=== PATIENT | female | born 1945 | race Caucasian/White ===

== ENCOUNTER → 2016-05-07 | Outpatient (CLI) | payer MEDICARE, MEDICAID ==
[~2016-05-07] MED LIST: ACET50TAOT PO; ADV500INH INH; ALB2.5NEB INH; ALBU17IN INH; ALBU17IN2 INH; AMIT25TA PO; AMIT50TA PO; AMIT50TA4 PO; ASPI1TAB PO; ASPI325T PO; AUGM875T27 PO; BACITAB3 PO; CALC600T57 PO; CALCTAB68 PO; CEFD1CAP8 PO; CIPR500S PO; CIPR500T89 PO; COZAAR PO; CYCL5TA PO; DIOV80TA3 PO; DRIS50002 PO; ENOX40IN3 SC; FLON1SPR; FURO40TA2 PO; GABA300C3 PO; GLIM2TAB PO; GLIP5TAB2 PO; HUMA75IN2 SC; HYDR-3719 PO; INSUH10VL SC; INSUHUMDS SC; ISOS30TA4 PO; LASI20TA PO; LORA10TA2 PO; LOSA50TA20 PO; LOVE1INJ2 SC; MAGN400T5 PO; METF500T PO; METO50TA4 PO; MONT10TA2 PO; NITR4TASL SL; NORC5TAB PO; NOVO70VL SC; NYST100024 TOP; PANT40TA2 PO; PRED20TA PO; RIOMSOL PO; SERT-138 PO; SERT-141 PO; TIZA4CAP3 PO; TOPR50TA PO; VIBR100C PO; VITA10002 PO; ZETI10TA2 PO; ZOCO20TA PO; ZOFR20TA PO; [UNRECOGNIZED DRUG - CODE] IV
--- NOTE | 2016-05-07 13:49 | REP ---
Clinical: Nephrolithiasis. Technique: Two supine views of the abdomen and pelvis. Comparison: 04/18/2016. Findings: Left ureteral stent in stable, satisfactory position. Left intrarenal calculi measuring up to approximately 5 mm suggested. Further evaluation of the urinary tract system is severely limited due to overlying bowel gas, postsurgical changes, scattered presumed phleboliths, and technique. Impression: Left ureteral stent in satisfactory stable position. Nonobstructing left intrarenal calculi up to 5 mm suggested Signed by J Carlos Hernandez MD 05/07/2016 01:42 P
== END ==
LOC: M SMT 13:17
PROVIDERS: ATTEND Urology
DX: N20.0 Calculus of kidney (principal); Z96.0 Presence of urogenital implants

== ENCOUNTER 2017-01-06 11:09 | Day surgery (SDC) | payer MEDICARE, MEDICAID ==
[~2017-01-06] VITALS: Ht 158.8 cm; Wt 109.8 kg
[~2017-01-06 11:09] MED LIST changes: +ACETAMINOPHEN 325 MG TAB PO PRN; -AUGM875T27 PO; +AUGM875T28 PO; +BACITAB PO; -BACITAB3 PO; +BSS with VANC/TOB/EPI for EYE CASES IR ONE; +CIPR-249 PO; -CIPR500T89 PO; +CYCL5TAB PO; +CYCLOPENTOLATE 2% OPHTH SOLN 2ML BTL OS ONE; +FLUT1LOT EX; +FLUTISP; +GABA-282 PO; -GABA300C3 PO; +HEALON DUET (HEALON 10MG/ML 0.55ML & HEALON ENDOCOAT 30MG/ML 0.85ML) As Ordered ONE; +HUMA75VL SC; +LIDOCAINE 1% SDV 5 ML VIAL As Ordered ONE; +LIDOCAINE 3.5 % 1ML OPHTH TOPICAL GEL OU ONE; -METF500T PO; +METF500T13 PO; +MIDAZOLAM INJ 2 MG/2 ML VIAL (J2250) As Ordered ONE; +MIRA3350 PO; +MOXIFLOXACIN IN BSS 0.25MG/0.25ML INTRACAMERAL INJ (OR EYE ONLY)(J2280) As Ordered ONE; +NORC1TAB4 PO; -NORC5TAB PO; -NYST100024 TOP; +NYST1POW9 TOP; +OFLOXACIN 0.3 % (OCUFLOX) OPTH SOL 5ML OS ONE; +PHENYLEPHRINE 2.5% OPHTH SOL 2ML OS ONE; +POTA20TA PO; +POVIDONE-IODINE 5% OPHTH PREP SOL 30ML As Ordered ONE; +PROAAER10 INH; +PROPARACAINE 0.5% OPHTH SOL 15ML OS PRN; +TRIAMCINOLONE PRES FR 40 MG/ML 1ML(TRIESENCE)(OR EYE ONLY)(J3300 PER 1MG) As Ordered ONE; +TROPICAMIDE 1% OPHTH SOLN 2ML OS ONE; -ZETI10TA2 PO; +ZETI10TA30 PO; +ZOLO100T PO; +fentaNYL 100 MCG/2 ML INJECTION (J3010) As Ordered ONE
[2017-01-06] MEDS ORDERED: TRIAMCINOLONE PRES FR 40 MG/ML 1ML(TRIESENCE)(OR EYE ONLY)(J3300 PER 1MG) As Ordered ONE (12:23)
[2017-01-06] MEDS ORDERED: ACETYLCHOLINE OPHTH SOLN 1% 2ML (MIOCHOL-E) As Ordered ONE (12:27)
[2017-01-06] MEDS ORDERED: TRIMETHOBENZAMIDE 300 MG CAP PO PRN (13:15)
[2017-01-06] MEDS ORDERED: AcetaZOLAMIDE 500 MG ER CAP PO ONE (13:15)
[2017-01-06 13:40] VITALS: BP 163/76
== END 2017-01-06 13:55 | disposition home or self-care (01) ==
LOC: M SDC 11:09
PROVIDERS: ATTEND Ophthalmology
DX: H25.9 Unspecified age-related cataract (principal); I50.9 Heart failure, unspecified; G47.30 Sleep apnea, unspecified; E10.9 Type 1 diabetes mellitus without complications; Z79.4 Long term (current) use of insulin; F32.9 Major depressive disorder, single episode, unspecified; Z79.82 Long term (current) use of aspirin; Z79.899 Other long term (current) drug therapy; M79.7 Fibromyalgia; K21.9 Gastro-esophageal reflux disease without esophagitis; Z87.891 Personal history of nicotine dependence
CPT/HCPCS: 66984; 67515; J2250; J2280; J3010; J3300

== ENCOUNTER 2017-01-14 05:55 | Day surgery (SDC) | payer MEDICARE, MEDICAID ==
[~2017-01-14] VITALS: Ht 158.8 cm; Wt 109.8 kg
[~2017-01-14 05:55] MED LIST changes: -ACETAMINOPHEN 325 MG TAB PO PRN; -BSS with VANC/TOB/EPI for EYE CASES IR ONE; -CYCLOPENTOLATE 2% OPHTH SOLN 2ML BTL OS ONE; -HEALON DUET (HEALON 10MG/ML 0.55ML & HEALON ENDOCOAT 30MG/ML 0.85ML) As Ordered ONE; -LIDOCAINE 1% SDV 5 ML VIAL As Ordered ONE; -LIDOCAINE 3.5 % 1ML OPHTH TOPICAL GEL OU ONE; -MIDAZOLAM INJ 2 MG/2 ML VIAL (J2250) As Ordered ONE; -MOXIFLOXACIN IN BSS 0.25MG/0.25ML INTRACAMERAL INJ (OR EYE ONLY)(J2280) As Ordered ONE; -OFLOXACIN 0.3 % (OCUFLOX) OPTH SOL 5ML OS ONE; -PHENYLEPHRINE 2.5% OPHTH SOL 2ML OS ONE; -POVIDONE-IODINE 5% OPHTH PREP SOL 30ML As Ordered ONE; -PROPARACAINE 0.5% OPHTH SOL 15ML OS PRN; -TRIAMCINOLONE PRES FR 40 MG/ML 1ML(TRIESENCE)(OR EYE ONLY)(J3300 PER 1MG) As Ordered ONE; -TROPICAMIDE 1% OPHTH SOLN 2ML OS ONE; -fentaNYL 100 MCG/2 ML INJECTION (J3010) As Ordered ONE
[2017-01-14] MEDS ORDERED: ACETAMINOPHEN 325 MG TAB PO PRN (06:00)
[2017-01-14] MEDS ORDERED: LR 1,000 ML IV ONE (06:15)
[2017-01-14] MEDS ORDERED: POVIDONE-IODINE 5% OPHTH PREP SOL 30ML As Ordered ONE (06:46)
[2017-01-14] MEDS ORDERED: ACETYLCHOLINE OPHTH SOLN 1% 2ML (MIOCHOL-E) As Ordered ONE (06:46)
[2017-01-14] MEDS ORDERED: LIDOCAINE 1% SDV 5 ML VIAL As Ordered ONE (06:46)
[2017-01-14] MEDS ORDERED: HEALON DUET (HEALON 10MG/ML 0.55ML & HEALON ENDOCOAT 30MG/ML 0.85ML) As Ordered ONE (06:47)
[2017-01-14] MEDS ORDERED: CEFUROXIME 1MG/0.1ML INTRACAMERAL INJ As Ordered ONE (06:47)
[2017-01-14] MEDS ORDERED: LIDOCAINE 2% W/EPIN INJ 20ML **PRES FREE As Ordered ONE (06:50)
[2017-01-14] MEDS ORDERED: MOXIFLOXACIN IN BSS 0.25MG/0.25ML INTRACAMERAL INJ (OR EYE ONLY)(J2280) As Ordered ONE (06:52)
[2017-01-14] MEDS ORDERED: TRIAMCINOLONE PRES FR 40 MG/ML 1ML(TRIESENCE)(OR EYE ONLY)(J3300 PER 1MG) As Ordered ONE (06:52)
[2017-01-14] MEDS ORDERED: BSS with VANC/TOB/EPI for EYE CASES IR ONE (07:00)
[2017-01-14] MEDS ORDERED: CYCLOPENTOLATE 2% OPHTH SOLN 2ML BTL OD ONE (07:00)
[2017-01-14] MEDS ORDERED: LIDOCAINE 3.5 % 1ML OPHTH TOPICAL GEL OU ONE (07:00)
[2017-01-14] MEDS ORDERED: LIDOCAINE 1% SDV 5 ML VIAL SC ONE (07:00)
[2017-01-14] MEDS ORDERED: PHENYLEPHRINE 2.5% OPHTH SOL 2ML OD ONE (07:00)
[2017-01-14] MEDS ORDERED: OFLOXACIN 0.3 % (OCUFLOX) OPTH SOL 5ML OD ONE (07:00)
[2017-01-14] MEDS ORDERED: TROPICAMIDE 1% OPHTH SOLN 2ML OD ONE (07:00)
[2017-01-14] MEDS ORDERED: PROPARACAINE 0.5% OPHTH SOL 15ML OD PRN (07:01)
[2017-01-14] MEDS ORDERED: MIDAZOLAM INJ 2 MG/2 ML VIAL (J2250) As Ordered ONE (07:43)
[2017-01-14] MEDS ORDERED: fentaNYL 100 MCG/2 ML INJECTION (J3010) As Ordered ONE (07:43)
[2017-01-14] MEDS ORDERED: AcetaZOLAMIDE 500 MG ER CAP As Ordered ONE (08:17)
[2017-01-14] MEDS ORDERED: KETOROLAC 0.5% OPHTH SOLN OD ONE (08:30)
[2017-01-14] MEDS ORDERED: TRIMETHOBENZAMIDE 300 MG CAP PO PRN (08:30)
[2017-01-14] MEDS ORDERED: AcetaZOLAMIDE 500 MG ER CAP PO ONE (08:30)
[2017-01-14 08:40] VITALS: BP 172/74
== END 2017-01-14 08:59 | disposition home or self-care (01) ==
LOC: M SDC 05:55
PROVIDERS: ATTEND Ophthalmology
DX: H25.9 Unspecified age-related cataract (principal); I50.9 Heart failure, unspecified; I10 Essential (primary) hypertension; E78.5 Hyperlipidemia, unspecified; E11.9 Type 2 diabetes mellitus without complications; Z79.4 Long term (current) use of insulin; G47.30 Sleep apnea, unspecified; K21.9 Gastro-esophageal reflux disease without esophagitis; Z79.899 Other long term (current) drug therapy; Z87.891 Personal history of nicotine dependence; Z88.8 Allergy status to other drugs, medicaments and biological substances
CPT/HCPCS: 66984; J2250; J2280; J3010; J3300; V2632

== ENCOUNTER 2017-06-03 11:39 | Inpatient (IN) | payer MEDICARE, MEDICAID ==
[2017-06-03 12:31] LABS: BASO % 0.3 % (0.0-1.0); EOS # 0.1 10^3/uL (0.0-0.50); EOS % 1.7 % (0.0-3.0); HEMATOCRIT 34.5 % (36.0-47.0); HEMOGLOBIN 10.7 g/dl (12.0-16.0); IMMATURE GRANULOCYTE % 0.4 % (0-0); LYMPH # 1.3 10^3/uL (1.5-4.5); LYMPH % 18.2 % (24.0-44.0); MEAN CORPUSCULAR HEMOGLOBIN 26.6 pg (27.0-33.0); MEAN CORPUSCULAR VOLUME 85.8 fl (80.0-96.0); MONO # 0.5 10^3/uL (0.0-0.8); MONO % 7.4 % (0.0-5.0); PLATELET COUNT, AUTOMATED 247 10^3/uL (150-450); RED BLOOD COUNT 4.02 10^6/uL (4.00-5.40); RED CELL DISTRIBUTION WIDTH 12.1 % (11.5-14.5); WHITE BLOOD COUNT 6.9 10^3/uL (4.0-10.0)
[2017-06-03 13:00] LABS: ANION GAP 2 MEQ/L (8-16); BLOOD UREA NITROGEN 9 MG/DL (7-18); CALCIUM LEVEL 8.7 MG/DL (8.8-10.2); CARBON DIOXIDE LEVEL 44 MEQ/L (21-32); CHLORIDE LEVEL 89 MEQ/L (98-107); CPK CREATINE PHOSPHOKINASE 92 U/L (26-192); CREATININE FOR GFR 0.82 MG/DL (0.55-1.30); GLOMERULAR FILTRATION RATE > 60.0 (>39); GLUCOSE, FASTING 351 MG/DL (70-100); POTASSIUM SERUM 3.2 MEQ/L (3.5-5.1); SODIUM LEVEL 135 MEQ/L (136-145); TROPONIN I 0.05 NG/ML (< 0.10)
[2017-06-03 13:01] LABS: ALBUMIN 3.2 GM/DL (3.2-5.2); ALKALINE PHOSPHATASE 93 U/L (45-117); ALT/SGPT 10 U/L (12-78); AST/SGOT 13 U/L (7-37); BILIRUBIN,DIRECT 0.2 MG/DL (0.0-0.2); BILIRUBIN,TOTAL 0.5 MG/DL (0.2-1.0); CK-MB VALUE MASS 1.9 NG/ML (0.0-3.6); MB/CK RELATIVE INDEX 2.06 (< OR =4); NT-PRO BNP 3133 PG/ML (<125); TOTAL PROTEIN 7.2 GM/DL (6.4-8.2)
[2017-06-03 13:02] LABS: INFLUENZA A AMPLIFICATION NEGATIVE (NEGATIVE); INFLUENZA B AMPLIFICATION NEGATIVE (NEGATIVE)
[2017-06-03] MEDS ORDERED: hydrALAZINE INJ 20 MG/ML VIAL IV (13:09)
[2017-06-03] MEDS: FUROSEMIDE 40 MG/4 ML VIAL (J1940) IV ×2 (14:01→21:50)
[2017-06-03] MEDS: metFORMIN (GLUCOPHAGE) 500 MG TAB PO ×2 (16:48→21:47)
[2017-06-03 17:36] LABS: ABG BASE EXCESS 20.4 (-2.0-2.0); ABG HCO3 48.8 MEQ/L (22.0-26.0); ABG O2 SATURATION 98.5 % (95.0-99.0); ABG PARTIAL PRESSURE O2 110.7 mmHg (75.0-100.0); ABG STANDARD HCO3 44.7 MEQ/L (22.0-26.0); ABG TOTAL CO2 51.1 MEQ/L (23.0-31.0); ABG pH (ARTERIAL) 7.416 UNITS (7.350-7.450)
[2017-06-03 17:37] LABS: ABG PARTIAL PRESSURE CO2 77.6 mmHg (35.0-45.0)
[2017-06-03] MEDS ORDERED: GLUCOSE 4 GM CHEW TABLET PO (17:45)
[2017-06-03] MEDS ORDERED: GLUCAGON FOR INJ 1 MG VIAL (J1610) SC (17:45)
[2017-06-03] MEDS ORDERED: DEXTROSE 50% 50 ML SYRINGE IV (17:45)
[2017-06-03 18:29] LABS: CK-MB VALUE MASS 2.1 NG/ML (0.0-3.6); CPK CREATINE PHOSPHOKINASE 92 U/L (26-192); MB/CK RELATIVE INDEX 2.28 (< OR =4); TROPONIN I 0.05 NG/ML (< 0.10)
[2017-06-03] MEDS: ADVAIR HFA 230/21MCG INHALER INH (20:46)
[2017-06-03] MEDS ORDERED: HumaLOG INSULIN (NovoLOG) PER UNIT SC (21:00)
[2017-06-03 21:05] LABS: BEDSIDE GLUCOSE 290 MG/DL (83-110)
[2017-06-03] MEDS: MONTELUKAST 10 MG TAB PO (21:47)
[2017-06-03] MEDS: EZETIMIBE 10 MG TAB (ZETIA) PO (21:48)
[2017-06-03] MEDS: ANEXSIA, NORCO 7.5MG/325MG TABLET(HYDROCODONE/APAP) PO (21:48)
[2017-06-03] MEDS: PANTOPRAZOLE 40MG TAB (PROTONIX) PO (21:48)
[2017-06-03] MEDS: HEPARIN SOD (PORCINE) 5000 UNITS/ML VIAL SC (21:49)
[2017-06-03] MEDS: FLUTICASONE PROP 0.05% NASAL SPRAY 16 GM (FLONASE) (21:49)
[2017-06-03] MEDS: HumaLOG 75/25 MIX INSULIN PER UNIT SC (21:49)
[2017-06-03] MEDS: NYSTATIN 100,000 UNITS/GM TOPICAL PWD 15 GM TOP (21:50)
[2017-06-03] MEDS: ONDANSETRON 4MG/2ML VIAL (J2405) IV (21:50)
[2017-06-04 02:26] LABS: HEMATOCRIT 34.4 % (36.0-47.0); HEMOGLOBIN 10.5 g/dl (12.0-16.0); MEAN CORPUSCULAR HEMOGLOBIN 26.5 pg (27.0-33.0); MEAN CORPUSCULAR HGB CONC 30.5 g/dl (32.0-36.5); MEAN CORPUSCULAR VOLUME 86.9 fl (80.0-96.0); PLATELET COUNT, AUTOMATED 227 10^3/uL (150-450); RED BLOOD COUNT 3.96 10^6/uL (4.00-5.40); RED CELL DISTRIBUTION WIDTH 12.1 % (11.5-14.5); WHITE BLOOD COUNT 7.2 10^3/uL (4.0-10.0)
[2017-06-04 02:47] LABS: BLOOD UREA NITROGEN 10 MG/DL (7-18); CALCIUM LEVEL 8.6 MG/DL (8.8-10.2); CHLORIDE LEVEL 90 MEQ/L (98-107); GLOMERULAR FILTRATION RATE > 60.0 (>39); GLUCOSE, FASTING 109 MG/DL (70-100); MAGNESIUM LEVEL 1.5 MG/DL (1.8-2.4); POTASSIUM SERUM 2.5 MEQ/L (3.5-5.1); SODIUM LEVEL 141 MEQ/L (136-145)
[2017-06-04 02:54] LABS: CK-MB VALUE MASS 1.9 NG/ML (0.0-3.6); CPK CREATINE PHOSPHOKINASE 108 U/L (26-192); MB/CK RELATIVE INDEX 1.75 (< OR =4); TROPONIN I 0.06 NG/ML (< 0.10)
[2017-06-04 03:03] LABS: CARBON DIOXIDE LEVEL 52 MEQ/L (21-32)
[2017-06-04 03:24] LABS: ESTIMATED AVERAGE GLUCOSE 220 MG/DL (60-110); HEMOGLOBIN A1c 9.3 %
[2017-06-04] MEDS ORDERED: KCL 20MEQ IN 100ML SWI (KRUN) 20 MEQ in APPROPRIATE DILUENT 1 EA IV (03:30)
[2017-06-04] MEDS ORDERED: KCL 10MEQ IN 100ML SWI (KRUN) 10 MEQ in APPROPRIATE DILUENT 1 EA IV (04:00)
[2017-06-04] MEDS: KCL 10MEQ IN 100ML SWI (KRUN) 10 MEQ in APPROPRIATE DILUENT 1 EA IV ×2 (04:19→04:20)
[2017-06-04] MEDS: POTASSIUM CHLORIDE 10 MEQ SR TABLET PO ×3 (04:19→16:58)
[2017-06-04] MEDS: HEPARIN SOD (PORCINE) 5000 UNITS/ML VIAL SC ×3 (06:17→22:35)
[2017-06-04] MEDS: MAG SULF 1GM/100ML (MAG RUN) 1 GM in APPROPRIATE DILUENT 1 EA IV (06:18)
[2017-06-04] MEDS ORDERED: HumaLOG 75/25 MIX INSULIN PER UNIT SC ×2 (07:30→17:30)
[2017-06-04 08:42] LABS: BEDSIDE GLUCOSE 162 MG/DL (83-110)
[2017-06-04] MEDS: ADVAIR HFA 230/21MCG INHALER INH ×2 (08:45→21:23)
[2017-06-04] MEDS: ASPIRIN 81 MG ENTERIC TAB PO (08:48)
[2017-06-04] MEDS: SERTRALINE 100 MG TAB PO (08:48)
[2017-06-04] MEDS: METOPROLOL SUCC (TopROL XL) 50MG **XL** TAB PO (08:49)
[2017-06-04] MEDS: ANEXSIA, NORCO 7.5MG/325MG TABLET(HYDROCODONE/APAP) PO ×2 (08:49→20:25)
[2017-06-04 08:50] LABS: ALBUMIN 3.1 GM/DL (3.2-5.2); ALBUMIN/GLOBULIN RATIO 0.84 (1.00-1.93); ALKALINE PHOSPHATASE 74 U/L (45-117); ALT/SGPT 10 U/L (12-78); AST/SGOT 18 U/L (7-37); BILIRUBIN,TOTAL 0.4 MG/DL (0.2-1.0); BLOOD UREA NITROGEN 10 MG/DL (7-18); CALCIUM LEVEL 8.3 MG/DL (8.8-10.2); CHLORIDE LEVEL 89 MEQ/L (98-107); CREATININE FOR GFR 0.81 MG/DL (0.55-1.30); GLOMERULAR FILTRATION RATE > 60.0 (>39); GLUCOSE, FASTING 157 MG/DL (70-100); POTASSIUM SERUM 3.4 MEQ/L (3.5-5.1); SODIUM LEVEL 141 MEQ/L (136-145); TOTAL PROTEIN 6.8 GM/DL (6.4-8.2)
[2017-06-04] MEDS: ISOSORBIDE MON. (IMDUR) 30 MG XR TAB PO (08:50)
[2017-06-04] MEDS: LOSARTAN 50 MG TAB PO (08:50)
[2017-06-04] MEDS: MAGNESIUM OXIDE 400 MG TAB (MAG-OX) PO (08:50)
[2017-06-04 08:51] LABS: CK-MB VALUE MASS 1.9 NG/ML (0.0-3.6); CPK CREATINE PHOSPHOKINASE 127 U/L (26-192); MAGNESIUM LEVEL 2.1 MG/DL (1.8-2.4); MB/CK RELATIVE INDEX 1.49 (< OR =4); TROPONIN I 0.06 NG/ML (< 0.10)
[2017-06-04] MEDS: PANTOPRAZOLE 40MG TAB (PROTONIX) PO ×2 (08:51→20:26)
[2017-06-04] MEDS: HumaLOG INSULIN (NovoLOG) PER UNIT SC ×3 (08:55→17:13)
[2017-06-04] MEDS: HumaLOG 75/25 MIX INSULIN PER UNIT SC ×2 (08:56→16:59)
[2017-06-04] MEDS ORDERED: POTASSIUM CHLORIDE 10 MEQ SR TABLET PO ×2 (09:00→12:00)
[2017-06-04 09:17] LABS: ANION GAP 8 MEQ/L (8-16); CARBON DIOXIDE LEVEL 44 MEQ/L (21-32)
[2017-06-04 09:55] LABS: ABG BASE EXCESS 16.4 (-2.0-2.0); ABG HCO3 44.7 MEQ/L (22.0-26.0); ABG O2 SATURATION 98.6 % (95.0-99.0); ABG STANDARD HCO3 40.4 MEQ/L (22.0-26.0); ABG TOTAL CO2 47.1 MEQ/L (23.0-31.0); ABG pH (ARTERIAL) 7.384 UNITS (7.350-7.450)
[2017-06-04 09:58] LABS: ABG PARTIAL PRESSURE CO2 76.6 mmHg (35.0-45.0)
[2017-06-04 11:59] LABS: BEDSIDE GLUCOSE 119 MG/DL (83-110)
[2017-06-04] MEDS ORDERED: ALBUTEROL SULFATE 2.5 MG/0.5 ML INH NEB SOLN INH (13:45)
[2017-06-04] MEDS: ACETAMINOPHEN TAB 650MG DOSE (2X325MG) PO (14:52)
[2017-06-04] MEDS: IPRATROPIUM 0.5MG/ALBUTEROL 2.5MG INH SOL UD 3ML (DUONEB)(J7620) NEB ×3 (15:22→23:54)
[2017-06-04 15:30] LABS: BLOOD UREA NITROGEN 13 MG/DL (7-18); CALCIUM LEVEL 8.5 MG/DL (8.8-10.2); CHLORIDE LEVEL 92 MEQ/L (98-107); CREATININE FOR GFR 0.98 MG/DL (0.55-1.30); GLOMERULAR FILTRATION RATE 59.6 (>39); GLUCOSE, FASTING 54 MG/DL (70-100); POTASSIUM SERUM 3.2 MEQ/L (3.5-5.1); SODIUM LEVEL 143 MEQ/L (136-145)
[2017-06-04 15:47] LABS: ANION GAP 28 MEQ/L (8-16); CARBON DIOXIDE LEVEL 23 MEQ/L (21-32)
[2017-06-04 16:28] LABS: BEDSIDE GLUCOSE 77 MG/DL (83-110)
[2017-06-04] MEDS: EZETIMIBE 10 MG TAB (ZETIA) PO (20:26)
[2017-06-04] MEDS: MONTELUKAST 10 MG TAB PO (20:29)
[2017-06-04 20:45] LABS: BEDSIDE GLUCOSE 79 MG/DL (83-110)
[2017-06-04] MEDS: FLUTICASONE PROP 0.05% NASAL SPRAY 16 GM (FLONASE) (22:34)
[2017-06-05] MEDS: IPRATROPIUM 0.5MG/ALBUTEROL 2.5MG INH SOL UD 3ML (DUONEB)(J7620) NEB ×6 (03:20→22:06)
[2017-06-05] MEDS: HEPARIN SOD (PORCINE) 5000 UNITS/ML VIAL SC ×3 (05:06→21:24)
[2017-06-05 05:30] LABS: HEMATOCRIT 33.6 % (36.0-47.0); MEAN CORPUSCULAR HEMOGLOBIN 26.7 pg (27.0-33.0); MEAN CORPUSCULAR HGB CONC 29.8 g/dl (32.0-36.5); MEAN CORPUSCULAR VOLUME 89.8 fl (80.0-96.0); PLATELET COUNT, AUTOMATED 232 10^3/uL (150-450); RED BLOOD COUNT 3.74 10^6/uL (4.00-5.40); RED CELL DISTRIBUTION WIDTH 12.3 % (11.5-14.5); WHITE BLOOD COUNT 5.4 10^3/uL (4.0-10.0)
[2017-06-05 05:50] LABS: BLOOD UREA NITROGEN 14 MG/DL (7-18); CALCIUM LEVEL 8.7 MG/DL (8.8-10.2); CHLORIDE LEVEL 93 MEQ/L (98-107); CREATININE FOR GFR 0.91 MG/DL (0.55-1.30); GLOMERULAR FILTRATION RATE > 60.0 (>39); GLUCOSE, FASTING 129 MG/DL (70-100); POTASSIUM SERUM 3.3 MEQ/L (3.5-5.1); SODIUM LEVEL 142 MEQ/L (136-145)
[2017-06-05 06:01] LABS: ANION GAP 2 MEQ/L (8-16); CARBON DIOXIDE LEVEL 47 MEQ/L (21-32)
[2017-06-05] MEDS ORDERED: HumaLOG 75/25 MIX INSULIN PER UNIT SC (07:30)
[2017-06-05] MEDS: ISOSORBIDE MON. (IMDUR) 30 MG XR TAB PO (08:10)
[2017-06-05] MEDS: ASPIRIN 81 MG ENTERIC TAB PO (08:11)
[2017-06-05] MEDS: LOSARTAN 50 MG TAB PO (08:11)
[2017-06-05] MEDS: METOPROLOL SUCC (TopROL XL) 50MG **XL** TAB PO (08:11)
[2017-06-05] MEDS: PANTOPRAZOLE 40MG TAB (PROTONIX) PO ×2 (08:11→21:02)
[2017-06-05] MEDS: MAGNESIUM OXIDE 400 MG TAB (MAG-OX) PO (08:12)
[2017-06-05] MEDS: SERTRALINE 100 MG TAB PO (08:12)
[2017-06-05] MEDS: CYANOCOBALAMIN 500 MCG TAB PO (08:12)
[2017-06-05] MEDS: POTASSIUM CHLORIDE 10 MEQ SR TABLET PO (08:12)
[2017-06-05] MEDS: NYSTATIN 100,000 UNITS/GM TOPICAL PWD 15 GM TOP (08:13)
[2017-06-05] MEDS: NS 1,000 ML IV (08:15)
[2017-06-05] MEDS: ANEXSIA, NORCO 7.5MG/325MG TABLET(HYDROCODONE/APAP) PO ×2 (08:15→21:03)
[2017-06-05] MEDS: HumaLOG INSULIN (NovoLOG) PER UNIT SC ×3 (08:17→17:30)
[2017-06-05] MEDS: HumaLOG 75/25 MIX INSULIN PER UNIT SC ×2 (08:18→21:14)
[2017-06-05] MEDS: ADVAIR HFA 230/21MCG INHALER INH ×2 (08:32→21:00)
[2017-06-05 11:58] LABS: BEDSIDE GLUCOSE 205 MG/DL (83-110)
[2017-06-05 14:19] LABS: ANION GAP 5 MEQ/L (8-16); BLOOD UREA NITROGEN 15 MG/DL (7-18); CALCIUM LEVEL 8.5 MG/DL (8.8-10.2); CARBON DIOXIDE LEVEL 43 MEQ/L (21-32); CHLORIDE LEVEL 92 MEQ/L (98-107); GLOMERULAR FILTRATION RATE 58.2 (>39); GLUCOSE, FASTING 195 MG/DL (70-100); POTASSIUM SERUM 3.9 MEQ/L (3.5-5.1); SODIUM LEVEL 140 MEQ/L (136-145)
[2017-06-05] MEDS: predniSONE 20 MG TAB PO (14:32)
[2017-06-05 15:05] LABS: ABG BASE EXCESS 13.2 (-2.0-2.0); ABG HCO3 40.8 MEQ/L (22.0-26.0); ABG O2 SATURATION 98.5 % (95.0-99.0); ABG PARTIAL PRESSURE O2 116.6 mmHg (75.0-100.0); ABG STANDARD HCO3 36.9 MEQ/L (22.0-26.0); ABG pH (ARTERIAL) 7.378 UNITS (7.350-7.450)
[2017-06-05 15:06] LABS: ABG PARTIAL PRESSURE CO2 70.9 mmHg (35.0-45.0)
[2017-06-05 17:53] LABS: BEDSIDE GLUCOSE 75 MG/DL (83-110)
[2017-06-05] MEDS: EZETIMIBE 10 MG TAB (ZETIA) PO (21:02)
[2017-06-05] MEDS: MONTELUKAST 10 MG TAB PO (21:02)
[2017-06-05] MEDS: FLUTICASONE PROP 0.05% NASAL SPRAY 16 GM (FLONASE) (21:04)
[2017-06-05 21:05] LABS: BEDSIDE GLUCOSE 319 MG/DL (83-110)
[2017-06-06] MEDS: IPRATROPIUM 0.5MG/ALBUTEROL 2.5MG INH SOL UD 3ML (DUONEB)(J7620) NEB ×6 (04:30→22:22)
[2017-06-06 06:32] LABS: HEMATOCRIT 33.5 % (36.0-47.0); MEAN CORPUSCULAR HEMOGLOBIN 26.2 pg (27.0-33.0); MEAN CORPUSCULAR HGB CONC 29.9 g/dl (32.0-36.5); MEAN CORPUSCULAR VOLUME 87.9 fl (80.0-96.0); PLATELET COUNT, AUTOMATED 271 10^3/uL (150-450); RED BLOOD COUNT 3.81 10^6/uL (4.00-5.40); RED CELL DISTRIBUTION WIDTH 12.3 % (11.5-14.5); WHITE BLOOD COUNT 6.9 10^3/uL (4.0-10.0)
[2017-06-06] MEDS: HEPARIN SOD (PORCINE) 5000 UNITS/ML VIAL SC ×3 (06:47→21:15)
[2017-06-06 06:56] LABS: ANION GAP 2 MEQ/L (8-16); BLOOD UREA NITROGEN 16 MG/DL (7-18); CALCIUM LEVEL 8.4 MG/DL (8.8-10.2); CARBON DIOXIDE LEVEL 43 MEQ/L (21-32); CHLORIDE LEVEL 94 MEQ/L (98-107); CREATININE FOR GFR 0.84 MG/DL (0.55-1.30); GLOMERULAR FILTRATION RATE > 60.0 (>39); GLUCOSE, FASTING 223 MG/DL (70-100); SODIUM LEVEL 139 MEQ/L (136-145)
[2017-06-06] MEDS: NS 1,000 ML IV (07:45)
[2017-06-06] MEDS: ADVAIR HFA 230/21MCG INHALER INH ×2 (07:47→19:59)
[2017-06-06] MEDS: HumaLOG 75/25 MIX INSULIN PER UNIT SC ×2 (07:57→21:17)
[2017-06-06] MEDS: HumaLOG INSULIN (NovoLOG) PER UNIT SC ×3 (07:57→17:21)
[2017-06-06] MEDS: SERTRALINE 100 MG TAB PO (07:58)
[2017-06-06] MEDS: MAGNESIUM OXIDE 400 MG TAB (MAG-OX) PO (07:58)
[2017-06-06] MEDS: ASPIRIN 81 MG ENTERIC TAB PO (07:58)
[2017-06-06] MEDS: predniSONE 20 MG TAB PO (07:58)
[2017-06-06] MEDS: PANTOPRAZOLE 40MG TAB (PROTONIX) PO ×2 (07:58→21:13)
[2017-06-06] MEDS: LOSARTAN 50 MG TAB PO (07:59)
[2017-06-06] MEDS: METOPROLOL SUCC (TopROL XL) 50MG **XL** TAB PO (07:59)
[2017-06-06] MEDS: ISOSORBIDE MON. (IMDUR) 30 MG XR TAB PO (08:00)
[2017-06-06] MEDS: ANEXSIA, NORCO 7.5MG/325MG TABLET(HYDROCODONE/APAP) PO ×2 (08:00→21:13)
[2017-06-06 13:17] LABS: ABG HCO3 45.1 MEQ/L (22.0-26.0); ABG O2 SATURATION 99.2 % (95.0-99.0); ABG PARTIAL PRESSURE O2 137.6 mmHg (75.0-100.0); ABG TOTAL CO2 47.4 MEQ/L (23.0-31.0); ABG pH (ARTERIAL) 7.393 UNITS (7.350-7.450)
[2017-06-06 13:18] LABS: ABG PARTIAL PRESSURE CO2 75.7 mmHg (35.0-45.0)
[2017-06-06 15:13] LABS: AMMONIA < 10 uMOL/L (<32)
[2017-06-06 15:33] LABS: ALBUMIN 3.1 GM/DL (3.2-5.2); ALBUMIN/GLOBULIN RATIO 0.82 (1.00-1.93); ALKALINE PHOSPHATASE 71 U/L (45-117); ALT/SGPT 14 U/L (12-78); ANION GAP 5 MEQ/L (8-16); AST/SGOT 40 U/L (7-37); BILIRUBIN,TOTAL 0.4 MG/DL (0.2-1.0); BLOOD UREA NITROGEN 17 MG/DL (7-18); CALCIUM LEVEL 8.5 MG/DL (8.8-10.2); CARBON DIOXIDE LEVEL 40 MEQ/L (21-32); CHLORIDE LEVEL 94 MEQ/L (98-107); GLOMERULAR FILTRATION RATE > 60.0 (>39); GLUCOSE, FASTING 199 MG/DL (70-100); POTASSIUM SERUM 4.5 MEQ/L (3.5-5.1); SODIUM LEVEL 139 MEQ/L (136-145); TOTAL PROTEIN 6.9 GM/DL (6.4-8.2)
[2017-06-06 15:40] LABS: VITAMIN B12 LEVEL 512 PG/ML (247-911)
[2017-06-06 21:10] LABS: BEDSIDE GLUCOSE 232 MG/DL (83-110)
[2017-06-06] MEDS: MONTELUKAST 10 MG TAB PO (21:13)
[2017-06-06] MEDS: EZETIMIBE 10 MG TAB (ZETIA) PO (21:13)
[2017-06-06] MEDS: FLUTICASONE PROP 0.05% NASAL SPRAY 16 GM (FLONASE) (21:14)
[2017-06-07] MEDS: IPRATROPIUM 0.5MG/ALBUTEROL 2.5MG INH SOL UD 3ML (DUONEB)(J7620) NEB ×5 (03:07→20:00)
[2017-06-07] MEDS: HEPARIN SOD (PORCINE) 5000 UNITS/ML VIAL SC ×3 (05:26→21:08)
[2017-06-07 05:49] LABS: HEMATOCRIT 33.4 % (36.0-47.0); HEMOGLOBIN 9.9 g/dl (12.0-16.0); MEAN CORPUSCULAR HEMOGLOBIN 26.1 pg (27.0-33.0); MEAN CORPUSCULAR HGB CONC 29.6 g/dl (32.0-36.5); MEAN CORPUSCULAR VOLUME 87.9 fl (80.0-96.0); PLATELET COUNT, AUTOMATED 271 10^3/uL (150-450); RED CELL DISTRIBUTION WIDTH 12.5 % (11.5-14.5); WHITE BLOOD COUNT 7.9 10^3/uL (4.0-10.0)
[2017-06-07 06:10] LABS: ANION GAP 7 MEQ/L (8-16); BLOOD UREA NITROGEN 20 MG/DL (7-18); CALCIUM LEVEL 8.8 MG/DL (8.8-10.2); CARBON DIOXIDE LEVEL 40 MEQ/L (21-32); CHLORIDE LEVEL 94 MEQ/L (98-107); CREATININE FOR GFR 0.84 MG/DL (0.55-1.30); GLOMERULAR FILTRATION RATE > 60.0 (>39); GLUCOSE, FASTING 184 MG/DL (70-100); POTASSIUM SERUM 3.7 MEQ/L (3.5-5.1); SODIUM LEVEL 141 MEQ/L (136-145)
[2017-06-07] MEDS: ADVAIR HFA 230/21MCG INHALER INH ×2 (07:36→21:17)
[2017-06-07] MEDS: ANEXSIA, NORCO 7.5MG/325MG TABLET(HYDROCODONE/APAP) PO ×2 (08:16→21:09)
[2017-06-07] MEDS: HumaLOG 75/25 MIX INSULIN PER UNIT SC ×2 (08:16→21:08)
[2017-06-07] MEDS: HumaLOG INSULIN (NovoLOG) PER UNIT SC ×3 (08:17→17:02)
[2017-06-07] MEDS: ISOSORBIDE MON. (IMDUR) 30 MG XR TAB PO (08:22)
[2017-06-07] MEDS: METOPROLOL SUCC (TopROL XL) 50MG **XL** TAB PO (08:22)
[2017-06-07] MEDS: PANTOPRAZOLE 40MG TAB (PROTONIX) PO ×2 (08:22→21:09)
[2017-06-07] MEDS: LOSARTAN 50 MG TAB PO (08:22)
[2017-06-07] MEDS: ASPIRIN 81 MG ENTERIC TAB PO (08:22)
[2017-06-07] MEDS: SERTRALINE 100 MG TAB PO (08:23)
[2017-06-07] MEDS: predniSONE 20 MG TAB PO (08:23)
[2017-06-07] MEDS: MAGNESIUM OXIDE 400 MG TAB (MAG-OX) PO (08:23)
[2017-06-07] MEDS: TORSEMIDE 10 MG TABLET PO (15:13)
[2017-06-07 16:26] LABS: BEDSIDE GLUCOSE 222 MG/DL (83-110)
[2017-06-07 16:26] LABS: BEDSIDE GLUCOSE 225 MG/DL (83-110)
[2017-06-07 16:26] LABS: BEDSIDE GLUCOSE 88 MG/DL (83-110)
[2017-06-07 16:55] LABS: BEDSIDE GLUCOSE 362 MG/DL (83-110)
[2017-06-07] MEDS: MONTELUKAST 10 MG TAB PO (21:08)
[2017-06-07] MEDS: FLUTICASONE PROP 0.05% NASAL SPRAY 16 GM (FLONASE) (21:09)
[2017-06-07] MEDS: EZETIMIBE 10 MG TAB (ZETIA) PO (21:09)
[2017-06-08] MEDS: IPRATROPIUM 0.5MG/ALBUTEROL 2.5MG INH SOL UD 3ML (DUONEB)(J7620) NEB ×6 (00:10→23:28)
[2017-06-08] MEDS: ACETAMINOPHEN TAB 650MG DOSE (2X325MG) PO (03:08)
[2017-06-08] MEDS: HEPARIN SOD (PORCINE) 5000 UNITS/ML VIAL SC ×3 (05:23→21:16)
[2017-06-08 05:44] LABS: HEMATOCRIT 33.8 % (36.0-47.0); HEMOGLOBIN 10.1 g/dl (12.0-16.0); MEAN CORPUSCULAR HEMOGLOBIN 26.2 pg (27.0-33.0); MEAN CORPUSCULAR HGB CONC 29.9 g/dl (32.0-36.5); MEAN CORPUSCULAR VOLUME 87.8 fl (80.0-96.0); PLATELET COUNT, AUTOMATED 259 10^3/uL (150-450); RED BLOOD COUNT 3.85 10^6/uL (4.00-5.40); RED CELL DISTRIBUTION WIDTH 12.4 % (11.5-14.5); WHITE BLOOD COUNT 9.3 10^3/uL (4.0-10.0)
[2017-06-08 05:59] LABS: ANION GAP 5 MEQ/L (8-16); BLOOD UREA NITROGEN 18 MG/DL (7-18); CALCIUM LEVEL 8.8 MG/DL (8.8-10.2); CARBON DIOXIDE LEVEL 43 MEQ/L (21-32); CHLORIDE LEVEL 91 MEQ/L (98-107); CREATININE FOR GFR 0.95 MG/DL (0.55-1.30); GLOMERULAR FILTRATION RATE > 60.0 (>39); GLUCOSE, FASTING 233 MG/DL (70-100); MAGNESIUM LEVEL 1.8 MG/DL (1.8-2.4); POTASSIUM SERUM 3.6 MEQ/L (3.5-5.1); SODIUM LEVEL 139 MEQ/L (136-145)
[2017-06-08] MEDS: HumaLOG 75/25 MIX INSULIN PER UNIT SC ×2 (08:10→21:17)
[2017-06-08] MEDS: HumaLOG INSULIN (NovoLOG) PER UNIT SC ×3 (08:10→17:44)
[2017-06-08] MEDS: predniSONE 20 MG TAB PO (08:11)
[2017-06-08] MEDS: PANTOPRAZOLE 40MG TAB (PROTONIX) PO ×2 (08:11→21:16)
[2017-06-08] MEDS: ASPIRIN 81 MG ENTERIC TAB PO (08:11)
[2017-06-08] MEDS: MAGNESIUM OXIDE 400 MG TAB (MAG-OX) PO (08:11)
[2017-06-08] MEDS: SERTRALINE 100 MG TAB PO (08:11)
[2017-06-08] MEDS: ISOSORBIDE MON. (IMDUR) 30 MG XR TAB PO (08:12)
[2017-06-08] MEDS: TORSEMIDE 10 MG TABLET PO (08:12)
[2017-06-08] MEDS: METOPROLOL SUCC (TopROL XL) 50MG **XL** TAB PO (08:12)
[2017-06-08] MEDS: LOSARTAN 50 MG TAB PO (08:13)
[2017-06-08] MEDS: ANEXSIA, NORCO 7.5MG/325MG TABLET(HYDROCODONE/APAP) PO ×2 (08:13→21:18)
[2017-06-08] MEDS: ADVAIR HFA 230/21MCG INHALER INH ×2 (08:38→21:55)
[2017-06-08 20:54] LABS: BEDSIDE GLUCOSE 278 MG/DL (83-110)
[2017-06-08] MEDS: MONTELUKAST 10 MG TAB PO (21:16)
[2017-06-08] MEDS: EZETIMIBE 10 MG TAB (ZETIA) PO (21:16)
[2017-06-08] MEDS: FLUTICASONE PROP 0.05% NASAL SPRAY 16 GM (FLONASE) (21:17)
[2017-06-09] MEDS: ACETAMINOPHEN TAB 650MG DOSE (2X325MG) PO (02:28)
[2017-06-09] MEDS: IPRATROPIUM 0.5MG/ALBUTEROL 2.5MG INH SOL UD 3ML (DUONEB)(J7620) NEB ×4 (04:00→15:17)
[2017-06-09] MEDS: HEPARIN SOD (PORCINE) 5000 UNITS/ML VIAL SC ×3 (05:12→21:23)
[2017-06-09 06:03] LABS: HEMATOCRIT 34.5 % (36.0-47.0); HEMOGLOBIN 10.5 g/dl (12.0-16.0); MEAN CORPUSCULAR HEMOGLOBIN 26.6 pg (27.0-33.0); MEAN CORPUSCULAR HGB CONC 30.4 g/dl (32.0-36.5); MEAN CORPUSCULAR VOLUME 87.6 fl (80.0-96.0); PLATELET COUNT, AUTOMATED 260 10^3/uL (150-450); RED BLOOD COUNT 3.94 10^6/uL (4.00-5.40); RED CELL DISTRIBUTION WIDTH 12.4 % (11.5-14.5); WHITE BLOOD COUNT 9.4 10^3/uL (4.0-10.0)
[2017-06-09 06:16] LABS: ANION GAP 4 MEQ/L (8-16); BLOOD UREA NITROGEN 22 MG/DL (7-18); CARBON DIOXIDE LEVEL 43 MEQ/L (21-32); CHLORIDE LEVEL 92 MEQ/L (98-107); GLOMERULAR FILTRATION RATE > 60.0 (>39); GLUCOSE, FASTING 166 MG/DL (70-100); MAGNESIUM LEVEL 1.9 MG/DL (1.8-2.4); POTASSIUM SERUM 3.5 MEQ/L (3.5-5.1); SODIUM LEVEL 139 MEQ/L (136-145)
[2017-06-09] MEDS: ADVAIR HFA 230/21MCG INHALER INH (07:39)
[2017-06-09] MEDS: MAGNESIUM OXIDE 400 MG TAB (MAG-OX) PO (08:43)
[2017-06-09] MEDS: PANTOPRAZOLE 40MG TAB (PROTONIX) PO ×2 (08:43→21:22)
[2017-06-09] MEDS: LOSARTAN 50 MG TAB PO (08:43)
[2017-06-09] MEDS: predniSONE 10 MG TAB PO (08:43)
[2017-06-09] MEDS: ISOSORBIDE MON. (IMDUR) 30 MG XR TAB PO (08:43)
[2017-06-09] MEDS: CYANOCOBALAMIN 500 MCG TAB PO (08:43)
[2017-06-09] MEDS: SERTRALINE 100 MG TAB PO (08:43)
[2017-06-09] MEDS: ASPIRIN 81 MG ENTERIC TAB PO (08:43)
[2017-06-09] MEDS: ANEXSIA, NORCO 7.5MG/325MG TABLET(HYDROCODONE/APAP) PO ×2 (08:44→21:22)
[2017-06-09] MEDS: METOPROLOL SUCC (TopROL XL) 50MG **XL** TAB PO (08:45)
[2017-06-09] MEDS: amLODIPine 5 MG TAB PO (08:45)
[2017-06-09] MEDS: HumaLOG INSULIN (NovoLOG) PER UNIT SC ×3 (08:45→17:34)
[2017-06-09] MEDS: LEVEMIR (INSULIN DETEMIR) 1 UNITS/0.01ML SC (08:46)
[2017-06-09] MEDS: TORSEMIDE 10 MG TABLET PO (08:54)
[2017-06-09] MEDS: HumaLOG 75/25 MIX INSULIN PER UNIT SC ×2 (08:55→21:23)
[2017-06-09 12:09] LABS: BEDSIDE GLUCOSE 105 MG/DL (83-110)
[2017-06-09 12:09] LABS: BEDSIDE GLUCOSE 457 MG/DL (83-110)
[2017-06-09 12:09] LABS: BEDSIDE GLUCOSE 370 MG/DL (83-110)
[2017-06-09 12:09] LABS: BEDSIDE GLUCOSE 178 MG/DL (83-110)
[2017-06-09 16:44] LABS: BEDSIDE GLUCOSE 416 MG/DL (83-110)
[2017-06-09] MEDS: EZETIMIBE 10 MG TAB (ZETIA) PO (21:22)
[2017-06-09] MEDS: MONTELUKAST 10 MG TAB PO (21:22)
[2017-06-09] MEDS: FLUTICASONE PROP 0.05% NASAL SPRAY 16 GM (FLONASE) (21:24)
[2017-06-09 21:45] LABS: BEDSIDE GLUCOSE 220 MG/DL (83-110)
[2017-06-10] MEDS: ADVAIR HFA 230/21MCG INHALER INH ×3 (00:01→21:00)
[2017-06-10] MEDS: IPRATROPIUM 0.5MG/ALBUTEROL 2.5MG INH SOL UD 3ML (DUONEB)(J7620) NEB ×8 (00:01→23:31)
[2017-06-10] MEDS: HEPARIN SOD (PORCINE) 5000 UNITS/ML VIAL SC ×3 (05:16→21:06)
[2017-06-10 06:27] LABS: HEMATOCRIT 34.6 % (36.0-47.0); HEMOGLOBIN 10.6 g/dl (12.0-16.0); MEAN CORPUSCULAR HGB CONC 30.6 g/dl (32.0-36.5); MEAN CORPUSCULAR VOLUME 88.3 fl (80.0-96.0); PLATELET COUNT, AUTOMATED 258 10^3/uL (150-450); RED BLOOD COUNT 3.92 10^6/uL (4.00-5.40); RED CELL DISTRIBUTION WIDTH 12.6 % (11.5-14.5); WHITE BLOOD COUNT 8.9 10^3/uL (4.0-10.0)
[2017-06-10 06:42] LABS: ANION GAP 3 MEQ/L (8-16); BLOOD UREA NITROGEN 26 MG/DL (7-18); CALCIUM LEVEL 8.9 MG/DL (8.8-10.2); CARBON DIOXIDE LEVEL 44 MEQ/L (21-32); CHLORIDE LEVEL 92 MEQ/L (98-107); CREATININE FOR GFR 1.06 MG/DL (0.55-1.30); GLOMERULAR FILTRATION RATE 54.4 (>39); GLUCOSE, FASTING 161 MG/DL (70-100); MAGNESIUM LEVEL 2.1 MG/DL (1.8-2.4); POTASSIUM SERUM 4.1 MEQ/L (3.5-5.1); SODIUM LEVEL 139 MEQ/L (136-145)
[2017-06-10] MEDS: ISOSORBIDE MON. (IMDUR) 30 MG XR TAB PO (08:22)
[2017-06-10] MEDS: PANTOPRAZOLE 40MG TAB (PROTONIX) PO ×2 (08:22→21:06)
[2017-06-10] MEDS: MAGNESIUM OXIDE 400 MG TAB (MAG-OX) PO (08:22)
[2017-06-10] MEDS: METOPROLOL SUCC (TopROL XL) 50MG **XL** TAB PO (08:22)
[2017-06-10] MEDS: SERTRALINE 100 MG TAB PO (08:22)
[2017-06-10] MEDS: ASPIRIN 81 MG ENTERIC TAB PO (08:22)
[2017-06-10] MEDS: amLODIPine 5 MG TAB PO (08:23)
[2017-06-10] MEDS: LOSARTAN 50 MG TAB PO (08:23)
[2017-06-10] MEDS: predniSONE 10 MG TAB PO (08:23)
[2017-06-10] MEDS: TORSEMIDE 10 MG TABLET PO (08:23)
[2017-06-10] MEDS: ANEXSIA, NORCO 7.5MG/325MG TABLET(HYDROCODONE/APAP) PO ×2 (08:24→21:07)
[2017-06-10] MEDS: HumaLOG 75/25 MIX INSULIN PER UNIT SC ×2 (08:24→21:06)
[2017-06-10] MEDS: HumaLOG INSULIN (NovoLOG) PER UNIT SC ×3 (08:24→17:41)
[2017-06-10] MEDS: LEVEMIR (INSULIN DETEMIR) 1 UNITS/0.01ML SC (08:25)
[2017-06-10 11:58] LABS: BEDSIDE GLUCOSE 97 MG/DL (83-110)
[2017-06-10 17:17] LABS: BEDSIDE GLUCOSE 285 MG/DL (83-110)
[2017-06-10 20:25] LABS: BEDSIDE GLUCOSE 308 MG/DL (83-110)
[2017-06-10] MEDS: EZETIMIBE 10 MG TAB (ZETIA) PO (21:06)
[2017-06-10] MEDS: MONTELUKAST 10 MG TAB PO (21:06)
[2017-06-10] MEDS: FLUTICASONE PROP 0.05% NASAL SPRAY 16 GM (FLONASE) (21:07)
[2017-06-10] MEDS: ACETAMINOPHEN TAB 650MG DOSE (2X325MG) PO (23:06)
[2017-06-11] MEDS: IPRATROPIUM 0.5MG/ALBUTEROL 2.5MG INH SOL UD 3ML (DUONEB)(J7620) NEB ×2 (03:38→08:00)
[2017-06-11] MEDS: HEPARIN SOD (PORCINE) 5000 UNITS/ML VIAL SC (05:00)
[2017-06-11 06:30] LABS: BEDSIDE GLUCOSE 200 MG/DL (83-110)
[2017-06-11] MEDS: HumaLOG INSULIN (NovoLOG) PER UNIT SC (08:18)
[2017-06-11] MEDS: LEVEMIR (INSULIN DETEMIR) 1 UNITS/0.01ML SC (08:19)
[2017-06-11] MEDS: predniSONE 10 MG TAB PO (08:19)
[2017-06-11] MEDS: HumaLOG 75/25 MIX INSULIN PER UNIT SC (08:19)
[2017-06-11] MEDS: ASPIRIN 81 MG ENTERIC TAB PO (08:20)
[2017-06-11] MEDS: ANEXSIA, NORCO 7.5MG/325MG TABLET(HYDROCODONE/APAP) PO (08:21)
[2017-06-11] MEDS: MAGNESIUM OXIDE 400 MG TAB (MAG-OX) PO (08:21)
[2017-06-11] MEDS: PANTOPRAZOLE 40MG TAB (PROTONIX) PO (08:21)
[2017-06-11] MEDS: SERTRALINE 100 MG TAB PO (08:21)
[2017-06-11] MEDS: TORSEMIDE 10 MG TABLET PO (08:21)
[2017-06-11] MEDS: METOPROLOL SUCC (TopROL XL) 50MG **XL** TAB PO (08:22)
[2017-06-11] MEDS: LOSARTAN 50 MG TAB PO (08:22)
[2017-06-11] MEDS: ISOSORBIDE MON. (IMDUR) 30 MG XR TAB PO (08:22)
[2017-06-11] MEDS: amLODIPine 5 MG TAB PO (08:23)
[2017-06-11] MEDS: ADVAIR HFA 230/21MCG INHALER INH (08:35)
== END 2017-06-11 11:17 | disposition home or self-care (01) | DRG 191 ==
LOC: M MSPAV 06-05 14:06 → M ED 11:39 → M ED INP 15:15 → M PCU 18:43
DX: J44.1 Chronic obstructive pulmonary disease with (acute) exacerbation (principal); J96.11 Chronic respiratory failure with hypoxia; E87.3 Alkalosis; E87.2 Acidosis; I50.32 Chronic diastolic (congestive) heart failure; I13.0 Hypertensive heart and chronic kidney disease with heart failure and stage 1 through stage 4 chronic kidney disease, or unspecified chronic kidney disease; M79.7 Fibromyalgia; E11.9 Type 2 diabetes mellitus without complications; Z79.4 Long term (current) use of insulin; Z79.899 Other long term (current) drug therapy; Z79.82 Long term (current) use of aspirin; G47.33 Obstructive sleep apnea (adult) (pediatric); J45.20 Mild intermittent asthma, uncomplicated; M19.90 Unspecified osteoarthritis, unspecified site; R32 Unspecified urinary incontinence; Z88.5 Allergy status to narcotic agent; Z88.8 Allergy status to other drugs, medicaments and biological substances; K21.9 Gastro-esophageal reflux disease without esophagitis; Z87.891 Personal history of nicotine dependence; E78.5 Hyperlipidemia, unspecified; E87.6 Hypokalemia; E83.42 Hypomagnesemia; I08.0 Rheumatic disorders of both mitral and aortic valves; Z99.81 Dependence on supplemental oxygen; N18.3 Chronic kidney disease, stage 3 (moderate); Z87.442 Personal history of urinary calculi; Z88.6 Allergy status to analgesic agent

== ENCOUNTER 2017-11-26 07:41 | Day surgery (SDC) | payer MEDICARE, MEDICAID ==
[2017-11-26] MEDS: NS 1,000 ML IV (08:00)
[2017-11-26] MEDS: METOPROLOL SUCC *XL* 25MG TAB (TopROL *XL*) PO (09:00)
[2017-11-26] MEDS ORDERED: METOPROLOL SUCC *XL* 25MG TAB (TopROL *XL*) As Ordered (09:00)
[2017-11-26] MEDS ORDERED: PROPOFOL 200 MG/20 ML VIAL As Ordered (09:20)
[2017-11-26] MEDS ORDERED: LIDOCAINE 2% INJ 100 MG/5 ML SDV (FOR ANES.) As Ordered (09:20)
[2017-11-26] MEDS ORDERED: fentaNYL 100 MCG/2 ML INJECTION (J3010) As Ordered (09:21)
[2017-11-26 09:41] LABS: BEDSIDE GLUCOSE 164 MG/DL (83-110)
[2017-11-26] MEDS ORDERED: LABETALOL HCL 100 MG/20 ML VIAL As Ordered (10:08)
== END 2017-11-26 10:33 | disposition home or self-care (01) ==
LOC: M OPP 07:41
DX: R11.2 Nausea with vomiting, unspecified (principal); K22.8 Other specified diseases of esophagus; K44.9 Diaphragmatic hernia without obstruction or gangrene; K22.4 Dyskinesia of esophagus; K22.2 Esophageal obstruction; K21.9 Gastro-esophageal reflux disease without esophagitis; R07.89 Other chest pain; I50.9 Heart failure, unspecified; I11.0 Hypertensive heart disease with heart failure; E78.5 Hyperlipidemia, unspecified; Z86.79 Personal history of other diseases of the circulatory system; E11.9 Type 2 diabetes mellitus without complications; M79.7 Fibromyalgia; M19.90 Unspecified osteoarthritis, unspecified site; M54.89 Other dorsalgia; R51 Headache; J45.909 Unspecified asthma, uncomplicated; J44.9 Chronic obstructive pulmonary disease, unspecified; Z99.81 Dependence on supplemental oxygen; G47.8 Other sleep disorders; G47.30 Sleep apnea, unspecified; R06.83 Snoring; Z87.442 Personal history of urinary calculi; Z88.8 Allergy status to other drugs, medicaments and biological substances; Z88.5 Allergy status to narcotic agent; Z79.82 Long term (current) use of aspirin; Z79.899 Other long term (current) drug therapy; Z79.4 Long term (current) use of insulin; Z87.891 Personal history of nicotine dependence; Z80.3 Family history of malignant neoplasm of breast
CPT/HCPCS: 43235

== ENCOUNTER 2017-11-28 14:09 | Emergency (ER) | payer MEDICARE, MEDICAID ==
[2017-11-28 16:15] LABS: BASO % 0.4 % (0.0-1.0); EOS # 0.2 10^3/uL (0.0-0.50); EOS % 2.2 % (0.0-3.0); HEMATOCRIT 34.2 % (36.0-47.0); HEMOGLOBIN 10.6 g/dl (12.0-15.5); IMMATURE GRANULOCYTE % 0.4 % (0-3.0); LYMPH # 2.4 10^3/uL (1.5-4.5); LYMPH % 24.6 % (24.0-44.0); MEAN CORPUSCULAR HEMOGLOBIN 27.7 pg (27.0-33.0); MEAN CORPUSCULAR VOLUME 89.3 fl (80.0-96.0); MONO # 0.8 10^3/uL (0.0-0.8); NEUTROPHILS # 6.3 10^3/uL (1.8-7.7); NEUTROPHILS % 64.4 % (36.0-66.0); PLATELET COUNT, AUTOMATED 298 10^3/uL (150-450); RED BLOOD COUNT 3.83 10^6/uL (4.00-5.40); RED CELL DISTRIBUTION WIDTH 12.4 % (11.5-14.5); WHITE BLOOD COUNT 9.7 10^3/uL (4.0-10.0)
[2017-11-28 16:31] LABS: ALBUMIN 2.9 GM/DL (3.2-5.2); ALT/SGPT 12 U/L (12-78); ANION GAP 7 MEQ/L (8-16); AST/SGOT 14 U/L (7-37); BILIRUBIN,DIRECT < 0.1 MG/DL (0.0-0.2); BILIRUBIN,TOTAL 0.3 MG/DL (0.2-1.0); BLOOD UREA NITROGEN 9 MG/DL (7-18); CALCIUM LEVEL 8.8 MG/DL (8.8-10.2); CARBON DIOXIDE LEVEL 34 MEQ/L (21-32); CHLORIDE LEVEL 103 MEQ/L (98-107); CREATININE FOR GFR 0.98 MG/DL (0.55-1.30); GLOMERULAR FILTRATION RATE 59.6 (>39); GLUCOSE, FASTING 52 MG/DL (70-100); LIPASE 55 U/L (73-393); POTASSIUM SERUM 3.9 MEQ/L (3.5-5.1); SODIUM LEVEL 144 MEQ/L (136-145); TROPONIN I < 0.02 NG/ML (< 0.10)
[2017-11-28 16:34] LABS: ALBUMIN/GLOBULIN RATIO 0.71 (1.00-1.93); ALKALINE PHOSPHATASE 63 U/L (45-117); CK-MB VALUE MASS 1.3 NG/ML (<3.6); CPK CREATINE PHOSPHOKINASE 61 U/L (26-192); MB/CK RELATIVE INDEX 2.13 (< OR =4)
[2017-11-28] MEDS ORDERED: ISOVUE-370 76% 100ML VIAL (Q9967) As Ordered (16:40)
[2017-11-28] MEDS: ONDANSETRON 4MG/2ML VIAL (J2405) IV (16:57)
[2017-11-28] MEDS: MORPHINE 2 MG/ML 1ML SYRINGE (J2270) IV (16:58)
[2017-11-28 17:58] LABS: BEDSIDE GLUCOSE 35 MG/DL (83-110)
[2017-11-28 19:04] LABS: BEDSIDE GLUCOSE 76 MG/DL (83-110)
== END 2017-11-28 19:47 | disposition home or self-care (01) ==
LOC: M ED 14:09
DX: R10.13 Epigastric pain (principal); I11.0 Hypertensive heart disease with heart failure; I50.9 Heart failure, unspecified; I25.2 Old myocardial infarction; E11.9 Type 2 diabetes mellitus without complications; M54.9 Dorsalgia, unspecified; F32.9 Major depressive disorder, single episode, unspecified; K21.9 Gastro-esophageal reflux disease without esophagitis; J44.9 Chronic obstructive pulmonary disease, unspecified; Z99.81 Dependence on supplemental oxygen; K44.9 Diaphragmatic hernia without obstruction or gangrene; M79.7 Fibromyalgia; Z87.442 Personal history of urinary calculi; Z87.891 Personal history of nicotine dependence; Z79.899 Other long term (current) drug therapy; Z79.51 Long term (current) use of inhaled steroids; Z79.84 Long term (current) use of oral hypoglycemic drugs; Z79.4 Long term (current) use of insulin; Z79.82 Long term (current) use of aspirin

== ENCOUNTER 2017-11-30 05:01 | Inpatient (IN) | payer MEDICARE, MEDICAID ==
[2017-11-30] MEDS: ONDANSETRON 4MG/2ML VIAL (J2405) IV ×6 (08:28→21:54)
[2017-11-30] MEDS: PANTOPRAZOLE 40MG INJ (PROTONIX) (C9113) IV ×2 (08:28)
[2017-11-30] MEDS: MORPHINE 4 MG/ML 1ML VIAL/SYRINGE (J2270) IV ×10 (08:30→21:55)
[2017-11-30 08:45] LABS: BASO % 0.5 % (0.0-1.0); EOS # 0.2 10^3/uL (0.0-0.50); EOS % 2.2 % (0.0-3.0); HEMATOCRIT 35.3 % (36.0-47.0); HEMOGLOBIN 11.1 g/dl (12.0-15.5); IMMATURE GRANULOCYTE % 0.4 % (0-3.0); LYMPH # 2.1 10^3/uL (1.5-4.5); LYMPH % 25.6 % (24.0-44.0); MEAN CORPUSCULAR HEMOGLOBIN 27.2 pg (27.0-33.0); MEAN CORPUSCULAR HGB CONC 31.4 g/dl (32.0-36.5); MEAN CORPUSCULAR VOLUME 86.5 fl (80.0-96.0); MONO # 0.5 10^3/uL (0.0-0.8); MONO % 6.4 % (0.0-5.0); NEUTROPHILS # 5.2 10^3/uL (1.8-7.7); NEUTROPHILS % 64.9 % (36.0-66.0); PLATELET COUNT, AUTOMATED 314 10^3/uL (150-450); RED BLOOD COUNT 4.08 10^6/uL (4.00-5.40); RED CELL DISTRIBUTION WIDTH 12.3 % (11.5-14.5)
[2017-11-30 09:10] LABS: ALBUMIN 3.1 GM/DL (3.2-5.2); ALBUMIN/GLOBULIN RATIO 0.78 (1.00-1.93); ALKALINE PHOSPHATASE 66 U/L (45-117); ALT/SGPT 14 U/L (12-78); AMYLASE 29 U/L (25-115); ANION GAP 7 MEQ/L (8-16); AST/SGOT 19 U/L (7-37); BILIRUBIN,DIRECT 0.1 MG/DL (0.0-0.2); BILIRUBIN,TOTAL 0.4 MG/DL (0.2-1.0); BLOOD UREA NITROGEN 7 MG/DL (7-18); CALCIUM LEVEL 8.9 MG/DL (8.8-10.2); CARBON DIOXIDE LEVEL 33 MEQ/L (21-32); CHLORIDE LEVEL 101 MEQ/L (98-107); CK-MB VALUE MASS 1.4 NG/ML (<3.6); CPK CREATINE PHOSPHOKINASE 59 U/L (26-192); CREATININE FOR GFR 1.03 MG/DL (0.55-1.30); GLOMERULAR FILTRATION RATE 56.2 (>39); GLUCOSE, FASTING 121 MG/DL (70-100); LIPASE 37 U/L (73-393); MB/CK RELATIVE INDEX 2.37 (< OR =4); NT-PRO BNP 651 PG/ML (<125); POTASSIUM SERUM 3.8 MEQ/L (3.5-5.1); SODIUM LEVEL 141 MEQ/L (136-145); TOTAL PROTEIN 7.1 GM/DL (6.4-8.2); TROPONIN I < 0.02 NG/ML (< 0.10)
[2017-11-30 09:12] LABS: INR 0.99; PROTHROMBIN TIME 13.2 SECONDS (12.1-14.4)
[2017-11-30 09:13] LABS: PARTIAL THROMBOPLASTIN TIME 31.1 SECONDS (25.4-37.6)
[2017-11-30] MEDS ORDERED: ISOVUE-370 76% 100ML VIAL (Q9967) As Ordered ×2 (10:05)
[2017-11-30] MEDS ORDERED: MIRALAX *UNIT DOSE* 17GM PACKET PO ×2 (12:00)
[2017-11-30] MEDS ORDERED: NYSTATIN 100,000 UNITS/GM TOPICAL PWD 15 GM TOP ×2 (12:00)
[2017-11-30] MEDS ORDERED: ALBUTEROL SULFATE 2.5 MG/0.5 ML INH NEB SOLN NEB ×2 (12:00)
[2017-11-30] MEDS ORDERED: ACETAMINOPHEN TAB 650MG DOSE (2X325MG) PO ×2 (12:00)
[2017-11-30] MEDS ORDERED: METOCLOPRAMIDE INJ 10MG/2ML VIAL (J2765) IV ×2 (12:30)
[2017-11-30] MEDS: GASTROGRAFIN SOLUTION 30ML PO ×4 (12:35→13:05)
[2017-11-30 13:41] LABS: KETONE, URINE AUTO RFX NEGATIVE (NEGATIVE); LEUKOCYTE ESTERASE UR AUTO RFX NEGATIVE (NEGATIVE); NITRITE, URINE AUTO RFX NEGATIVE (NEGATIVE); RBC, URINE AUTO RFX 1 /HPF (0-3); SPECIFIC GRAVITY UR AUTO RFX 1.026 (1.002-1.035); SQUAM EPITHELIAL CELL UR AURFX 0 /HPF (0-6); WBC, URINE AUTO RFX 1 /HPF (0-3)
[2017-11-30] MEDS: LOSARTAN 50 MG TAB PO ×4 (14:13→21:53)
[2017-11-30] MEDS: CYANOCOBALAMIN 500 MCG TAB PO ×2 (14:14)
[2017-11-30] MEDS: MONTELUKAST 10 MG TAB PO ×2 (14:14)
[2017-11-30] MEDS: SERTRALINE 100 MG TAB PO ×2 (14:14)
[2017-11-30] MEDS: SIMVASTATIN 20 MG TAB PO ×2 (14:14)
[2017-11-30] MEDS: METOPROLOL SUCC (TopROL XL) 50MG **XL** TAB PO ×2 (14:15)
[2017-11-30] MEDS: ISOSORBIDE MON. (IMDUR) 30 MG XR TAB PO ×2 (14:16)
[2017-11-30] MEDS: PANTOPRAZOLE 40MG TAB (PROTONIX) PO ×2 (21:53)
[2017-11-30] MEDS: HEPARIN SOD (PORCINE) 5000 UNITS/ML VIAL SC ×2 (21:54)
[2017-11-30] MEDS: EZETIMIBE 10 MG TAB (ZETIA) PO ×2 (21:54)
[2017-12-01 03:13] LABS: ESTIMATED AVERAGE GLUCOSE 140 MG/DL (60-110); HEMOGLOBIN A1c 6.5 %
[2017-12-01] MEDS: HEPARIN SOD (PORCINE) 5000 UNITS/ML VIAL SC ×6 (05:37→20:46)
[2017-12-01] MEDS: MORPHINE 4 MG/ML 1ML VIAL/SYRINGE (J2270) IV ×6 (08:42→18:00)
[2017-12-01] MEDS: ONDANSETRON 4MG/2ML VIAL (J2405) IV ×4 (08:42→18:02)
[2017-12-01 09:09] LABS: HEMATOCRIT 35.2 % (36.0-47.0); MEAN CORPUSCULAR HEMOGLOBIN 27.4 pg (27.0-33.0); MEAN CORPUSCULAR HGB CONC 31.3 g/dl (32.0-36.5); MEAN CORPUSCULAR VOLUME 87.8 fl (80.0-96.0); PLATELET COUNT, AUTOMATED 318 10^3/uL (150-450); RED BLOOD COUNT 4.01 10^6/uL (4.00-5.40); RED CELL DISTRIBUTION WIDTH 12.3 % (11.5-14.5); WHITE BLOOD COUNT 7.1 10^3/uL (4.0-10.0)
[2017-12-01 09:26] LABS: ANION GAP 5 MEQ/L (8-16); BLOOD UREA NITROGEN 10 MG/DL (7-18); CALCIUM LEVEL 8.6 MG/DL (8.8-10.2); CARBON DIOXIDE LEVEL 36 MEQ/L (21-32); CHLORIDE LEVEL 98 MEQ/L (98-107); CREATININE FOR GFR 0.96 MG/DL (0.55-1.30); GLOMERULAR FILTRATION RATE > 60.0 (>39); GLUCOSE, FASTING 134 MG/DL (70-100); MAGNESIUM LEVEL 1.8 MG/DL (1.8-2.4); POTASSIUM SERUM 4.6 MEQ/L (3.5-5.1); SODIUM LEVEL 139 MEQ/L (136-145)
[2017-12-01] MEDS: ASPIRIN 81 MG ENTERIC TAB PO ×2 (09:52)
[2017-12-01] MEDS: SIMVASTATIN 20 MG TAB PO ×2 (09:53)
[2017-12-01] MEDS: ISOSORBIDE MON. (IMDUR) 30 MG XR TAB PO ×2 (09:53)
[2017-12-01] MEDS: LOSARTAN 50 MG TAB PO ×4 (09:53→20:51)
[2017-12-01] MEDS: MONTELUKAST 10 MG TAB PO ×2 (09:53)
[2017-12-01] MEDS: CYANOCOBALAMIN 500 MCG TAB PO ×2 (09:53)
[2017-12-01] MEDS: PANTOPRAZOLE 40MG TAB (PROTONIX) PO ×4 (09:53→20:46)
[2017-12-01] MEDS: METOPROLOL SUCC (TopROL XL) 50MG **XL** TAB PO ×2 (09:54)
[2017-12-01] MEDS: SERTRALINE 100 MG TAB PO ×2 (09:54)
[2017-12-01] MEDS: EZETIMIBE 10 MG TAB (ZETIA) PO ×2 (20:46)
[2017-12-02] MEDS: HEPARIN SOD (PORCINE) 5000 UNITS/ML VIAL SC ×6 (05:23→20:17)
[2017-12-02 07:03] LABS: HEMATOCRIT 34.5 % (36.0-47.0); MEAN CORPUSCULAR HEMOGLOBIN 27.6 pg (27.0-33.0); MEAN CORPUSCULAR HGB CONC 31.9 g/dl (32.0-36.5); MEAN CORPUSCULAR VOLUME 86.7 fl (80.0-96.0); PLATELET COUNT, AUTOMATED 298 10^3/uL (150-450); RED BLOOD COUNT 3.98 10^6/uL (4.00-5.40); RED CELL DISTRIBUTION WIDTH 12.3 % (11.5-14.5); WHITE BLOOD COUNT 7.1 10^3/uL (4.0-10.0)
[2017-12-02 07:21] LABS: ANION GAP 5 MEQ/L (8-16); BLOOD UREA NITROGEN 9 MG/DL (7-18); CARBON DIOXIDE LEVEL 37 MEQ/L (21-32); CHLORIDE LEVEL 100 MEQ/L (98-107); CREATININE FOR GFR 1.03 MG/DL (0.55-1.30); GLOMERULAR FILTRATION RATE 56.2 (>39); GLUCOSE, FASTING 148 MG/DL (70-100); MAGNESIUM LEVEL 1.9 MG/DL (1.8-2.4); POTASSIUM SERUM 4.7 MEQ/L (3.5-5.1); SODIUM LEVEL 142 MEQ/L (136-145)
[2017-12-02] MEDS: MONTELUKAST 10 MG TAB PO ×2 (09:01)
[2017-12-02] MEDS: CYANOCOBALAMIN 500 MCG TAB PO ×2 (09:02)
[2017-12-02] MEDS: SIMVASTATIN 20 MG TAB PO ×2 (09:02)
[2017-12-02] MEDS: LOSARTAN 50 MG TAB PO ×4 (09:02→20:17)
[2017-12-02] MEDS: ISOSORBIDE MON. (IMDUR) 30 MG XR TAB PO ×2 (09:02)
[2017-12-02] MEDS: PANTOPRAZOLE 40MG TAB (PROTONIX) PO ×4 (09:02→20:17)
[2017-12-02] MEDS: SERTRALINE 100 MG TAB PO ×2 (09:02)
[2017-12-02] MEDS: METOPROLOL SUCC (TopROL XL) 50MG **XL** TAB PO ×2 (09:03)
[2017-12-02] MEDS: ASPIRIN 81 MG ENTERIC TAB PO ×2 (09:03)
[2017-12-02] MEDS: HYDROcodone/APAP LIQUID 7.5-325MG 15ML UDC (LORTAB ELIXIR) PO ×4 (14:15→22:08)
[2017-12-02] MEDS: EZETIMIBE 10 MG TAB (ZETIA) PO ×2 (20:17)
[2017-12-03] MEDS: HEPARIN SOD (PORCINE) 5000 UNITS/ML VIAL SC ×6 (05:55→21:22)
[2017-12-03] MEDS: HYDROcodone/APAP LIQUID 7.5-325MG 15ML UDC (LORTAB ELIXIR) PO ×4 (05:56→16:14)
[2017-12-03 06:56] LABS: HEMATOCRIT 33.1 % (36.0-47.0); HEMOGLOBIN 10.4 g/dl (12.0-15.5); MEAN CORPUSCULAR HEMOGLOBIN 27.7 pg (27.0-33.0); MEAN CORPUSCULAR HGB CONC 31.4 g/dl (32.0-36.5); MEAN CORPUSCULAR VOLUME 88.3 fl (80.0-96.0); PLATELET COUNT, AUTOMATED 266 10^3/uL (150-450); RED BLOOD COUNT 3.75 10^6/uL (4.00-5.40); RED CELL DISTRIBUTION WIDTH 12.1 % (11.5-14.5); WHITE BLOOD COUNT 5.7 10^3/uL (4.0-10.0)
[2017-12-03 07:14] LABS: ANION GAP 4 MEQ/L (8-16); BLOOD UREA NITROGEN 8 MG/DL (7-18); CALCIUM LEVEL 8.8 MG/DL (8.8-10.2); CARBON DIOXIDE LEVEL 38 MEQ/L (21-32); CHLORIDE LEVEL 101 MEQ/L (98-107); CREATININE FOR GFR 0.99 MG/DL (0.55-1.30); GLOMERULAR FILTRATION RATE 58.9 (>39); GLUCOSE, FASTING 125 MG/DL (70-100); MAGNESIUM LEVEL 1.8 MG/DL (1.8-2.4); POTASSIUM SERUM 3.8 MEQ/L (3.5-5.1); SODIUM LEVEL 143 MEQ/L (136-145)
[2017-12-03] MEDS: LOSARTAN 50 MG TAB PO ×4 (09:16→21:19)
[2017-12-03] MEDS: ASPIRIN 81 MG ENTERIC TAB PO ×2 (09:16)
[2017-12-03] MEDS: CYANOCOBALAMIN 500 MCG TAB PO ×2 (09:17)
[2017-12-03] MEDS: PANTOPRAZOLE 40MG TAB (PROTONIX) PO ×4 (09:17→21:19)
[2017-12-03] MEDS: SIMVASTATIN 20 MG TAB PO ×2 (09:17)
[2017-12-03] MEDS: MONTELUKAST 10 MG TAB PO ×2 (09:17)
[2017-12-03] MEDS: METOPROLOL SUCC (TopROL XL) 50MG **XL** TAB PO ×2 (09:17)
[2017-12-03] MEDS: ISOSORBIDE MON. (IMDUR) 30 MG XR TAB PO ×2 (09:17)
[2017-12-03] MEDS: SERTRALINE 100 MG TAB PO ×2 (09:18)
[2017-12-03] MEDS: ONDANSETRON 4 MG TAB (S0181) PO ×2 (11:06)
[2017-12-03] MEDS: EZETIMIBE 10 MG TAB (ZETIA) PO ×2 (21:21)
[2017-12-03] MEDS: ONDANSETRON 4MG/2ML VIAL (J2405) IV ×2 (21:21)
[2017-12-04] MEDS: HYDROcodone/APAP LIQUID 7.5-325MG 15ML UDC (LORTAB ELIXIR) PO ×4 (01:06→20:30)
[2017-12-04] MEDS: ONDANSETRON 4MG/2ML VIAL (J2405) IV ×6 (05:50→20:30)
[2017-12-04] MEDS: HEPARIN SOD (PORCINE) 5000 UNITS/ML VIAL SC ×6 (05:50→20:29)
[2017-12-04 06:56] LABS: HEMATOCRIT 34.1 % (36.0-47.0); HEMOGLOBIN 10.7 g/dl (12.0-15.5); MEAN CORPUSCULAR HEMOGLOBIN 27.9 pg (27.0-33.0); MEAN CORPUSCULAR HGB CONC 31.4 g/dl (32.0-36.5); MEAN CORPUSCULAR VOLUME 88.8 fl (80.0-96.0); PLATELET COUNT, AUTOMATED 252 10^3/uL (150-450); RED BLOOD COUNT 3.84 10^6/uL (4.00-5.40); RED CELL DISTRIBUTION WIDTH 12.4 % (11.5-14.5)
[2017-12-04 07:14] LABS: ANION GAP 5 MEQ/L (8-16); BLOOD UREA NITROGEN 8 MG/DL (7-18); CALCIUM LEVEL 8.7 MG/DL (8.8-10.2); CARBON DIOXIDE LEVEL 38 MEQ/L (21-32); CHLORIDE LEVEL 100 MEQ/L (98-107); CREATININE FOR GFR 1.06 MG/DL (0.55-1.30); GLOMERULAR FILTRATION RATE 54.4 (>39); GLUCOSE, FASTING 128 MG/DL (70-100); MAGNESIUM LEVEL 1.9 MG/DL (1.8-2.4); POTASSIUM SERUM 4.1 MEQ/L (3.5-5.1); SODIUM LEVEL 143 MEQ/L (136-145)
[2017-12-04] MEDS: ASPIRIN 81 MG ENTERIC TAB PO ×2 (08:56)
[2017-12-04] MEDS: MONTELUKAST 10 MG TAB PO ×2 (08:57)
[2017-12-04] MEDS: SERTRALINE 100 MG TAB PO ×2 (08:57)
[2017-12-04] MEDS: SIMVASTATIN 20 MG TAB PO ×2 (08:58)
[2017-12-04] MEDS: ISOSORBIDE MON. (IMDUR) 30 MG XR TAB PO ×2 (08:58)
[2017-12-04] MEDS: PANTOPRAZOLE 40MG TAB (PROTONIX) PO ×4 (08:58→20:30)
[2017-12-04] MEDS: CYANOCOBALAMIN 500 MCG TAB PO ×2 (08:58)
[2017-12-04] MEDS: METOPROLOL SUCC (TopROL XL) 50MG **XL** TAB PO ×2 (08:58)
[2017-12-04] MEDS: LOSARTAN 50 MG TAB PO ×4 (08:59→20:30)
[2017-12-04] MEDS: SUCRALFATE 1 GM TAB PO ×6 (11:51→20:30)
[2017-12-04] MEDS: EZETIMIBE 10 MG TAB (ZETIA) PO ×2 (20:30)
[2017-12-05] MEDS: HEPARIN SOD (PORCINE) 5000 UNITS/ML VIAL SC ×2 (06:17)
[2017-12-05 06:34] LABS: HEMATOCRIT 33.2 % (36.0-47.0); HEMOGLOBIN 10.4 g/dl (12.0-15.5); MEAN CORPUSCULAR HEMOGLOBIN 27.7 pg (27.0-33.0); MEAN CORPUSCULAR HGB CONC 31.3 g/dl (32.0-36.5); MEAN CORPUSCULAR VOLUME 88.5 fl (80.0-96.0); PLATELET COUNT, AUTOMATED 251 10^3/uL (150-450); RED BLOOD COUNT 3.75 10^6/uL (4.00-5.40); RED CELL DISTRIBUTION WIDTH 12.3 % (11.5-14.5); WHITE BLOOD COUNT 6.3 10^3/uL (4.0-10.0)
[2017-12-05 06:55] LABS: ANION GAP 2 MEQ/L (8-16); BLOOD UREA NITROGEN 7 MG/DL (7-18); CALCIUM LEVEL 8.8 MG/DL (8.8-10.2); CARBON DIOXIDE LEVEL 39 MEQ/L (21-32); CHLORIDE LEVEL 100 MEQ/L (98-107); GLOMERULAR FILTRATION RATE 58.2 (>39); GLUCOSE, FASTING 137 MG/DL (70-100); MAGNESIUM LEVEL 1.6 MG/DL (1.8-2.4); POTASSIUM SERUM 3.8 MEQ/L (3.5-5.1); SODIUM LEVEL 141 MEQ/L (136-145)
[2017-12-05] MEDS: SUCRALFATE 1 GM TAB PO ×2 (08:57)
[2017-12-05] MEDS: ASPIRIN 81 MG ENTERIC TAB PO ×2 (08:57)
[2017-12-05] MEDS: METOPROLOL SUCC (TopROL XL) 50MG **XL** TAB PO ×2 (08:57)
[2017-12-05] MEDS: SIMVASTATIN 20 MG TAB PO ×2 (08:57)
[2017-12-05] MEDS: MONTELUKAST 10 MG TAB PO ×2 (08:57)
[2017-12-05] MEDS: CYANOCOBALAMIN 500 MCG TAB PO ×2 (08:57)
[2017-12-05] MEDS: PANTOPRAZOLE 40MG TAB (PROTONIX) PO ×2 (08:57)
[2017-12-05] MEDS: SERTRALINE 100 MG TAB PO ×2 (08:57)
[2017-12-05] MEDS: LOSARTAN 50 MG TAB PO ×2 (08:58)
[2017-12-05] MEDS: ISOSORBIDE MON. (IMDUR) 30 MG XR TAB PO ×2 (08:58)
== END 2017-12-05 10:55 | disposition home or self-care (01) | DRG 206 ==
LOC: M MS5PR 12-01 18:17 → M ED 05:01 → M ED INP 11:51 → M PCU 17:32
DX: M94.0 Chondrocostal junction syndrome [Tietze] (principal); J96.11 Chronic respiratory failure with hypoxia; I50.32 Chronic diastolic (congestive) heart failure; J44.9 Chronic obstructive pulmonary disease, unspecified; K21.9 Gastro-esophageal reflux disease without esophagitis; G47.33 Obstructive sleep apnea (adult) (pediatric); E11.9 Type 2 diabetes mellitus without complications; M79.7 Fibromyalgia; R32 Unspecified urinary incontinence; K22.2 Esophageal obstruction; Z79.899 Other long term (current) drug therapy; Z79.82 Long term (current) use of aspirin; Z88.5 Allergy status to narcotic agent; Z88.6 Allergy status to analgesic agent; Z88.8 Allergy status to other drugs, medicaments and biological substances; M19.90 Unspecified osteoarthritis, unspecified site; Z87.891 Personal history of nicotine dependence; E66.9 Obesity, unspecified; R10.13 Epigastric pain; I11.0 Hypertensive heart disease with heart failure; I25.2 Old myocardial infarction; M54.9 Dorsalgia, unspecified; F32.9 Major depressive disorder, single episode, unspecified; Z99.81 Dependence on supplemental oxygen; K44.9 Diaphragmatic hernia without obstruction or gangrene; Z87.442 Personal history of urinary calculi; Z79.51 Long term (current) use of inhaled steroids; Z79.84 Long term (current) use of oral hypoglycemic drugs; Z79.4 Long term (current) use of insulin

== ENCOUNTER 2017-12-13 10:10 | Inpatient (IN) | payer MEDICARE, MEDICAID ==
[2017-12-13 11:31] LABS: BASO % 0.3 % (0.0-1.0); EOS # 0.1 10^3/uL (0.0-0.50); EOS % 1.3 % (0.0-3.0); HEMATOCRIT 39.5 % (36.0-47.0); HEMOGLOBIN 12.7 g/dl (12.0-15.5); IMMATURE GRANULOCYTE % 0.2 % (0-3.0); LYMPH # 2.1 10^3/uL (1.5-4.5); LYMPH % 24.4 % (24.0-44.0); MEAN CORPUSCULAR HEMOGLOBIN 27.4 pg (27.0-33.0); MEAN CORPUSCULAR HGB CONC 32.2 g/dl (32.0-36.5); MEAN CORPUSCULAR VOLUME 85.3 fl (80.0-96.0); MONO # 0.7 10^3/uL (0.0-0.8); MONO % 7.9 % (0.0-5.0); NEUTROPHILS # 5.7 10^3/uL (1.8-7.7); NEUTROPHILS % 65.9 % (36.0-66.0); PLATELET COUNT, AUTOMATED 291 10^3/uL (150-450); RED BLOOD COUNT 4.63 10^6/uL (4.00-5.40); RED CELL DISTRIBUTION WIDTH 12.5 % (11.5-14.5); WHITE BLOOD COUNT 8.7 10^3/uL (4.0-10.0)
[2017-12-13 11:40] LABS: PROTHROMBIN TIME 15.4 SECONDS (12.1-14.4)
[2017-12-13 11:41] LABS: PARTIAL THROMBOPLASTIN TIME 29.6 SECONDS (25.4-37.6)
[2017-12-13 11:45] LABS: LACTIC ACID SEPSIS PROTOCOL 1.1 MMOL/L (0.4-2.0)
[2017-12-13 11:48] LABS: ALBUMIN 3.5 GM/DL (3.2-5.2); ALKALINE PHOSPHATASE 68 U/L (45-117); ALT/SGPT 15 U/L (12-78); AMYLASE 23 U/L (25-115); ANION GAP 7 MEQ/L (8-16); AST/SGOT 15 U/L (7-37); BILIRUBIN,DIRECT 0.1 MG/DL (0.0-0.2); BILIRUBIN,TOTAL 0.5 MG/DL (0.2-1.0); BLOOD UREA NITROGEN 8 MG/DL (7-18); CARBON DIOXIDE LEVEL 35 MEQ/L (21-32); CHLORIDE LEVEL 97 MEQ/L (98-107); CK-MB VALUE MASS 1.1 NG/ML (<3.6); CPK CREATINE PHOSPHOKINASE 56 U/L (26-192); CREATININE FOR GFR 1.06 MG/DL (0.55-1.30); GLOMERULAR FILTRATION RATE 54.4 (>39); GLUCOSE, FASTING 173 MG/DL (70-100); LIPASE 52 U/L (73-393); MB/CK RELATIVE INDEX 1.96 (< OR =4); POTASSIUM SERUM 3.3 MEQ/L (3.5-5.1); SODIUM LEVEL 139 MEQ/L (136-145); TOTAL PROTEIN 7.9 GM/DL (6.4-8.2); TROPONIN I 0.02 NG/ML (< 0.10)
[2017-12-13] MEDS: NS 500 ML IV (12:25)
[2017-12-13] MEDS: ONDANSETRON 4MG/2ML VIAL (J2405) IV (12:25)
[2017-12-13] MEDS ORDERED: ISOVUE-370 76% 100ML VIAL (Q9967) As Ordered (12:32)
[2017-12-13] MEDS: CIPROFLOXACIN 400 MG in APPROPRIATE DILUENT 1 EA IV (14:37)
[2017-12-13] MEDS: NS 1,000 ML IV (15:38)
[2017-12-13] MEDS ORDERED: GLUCAGON FOR INJ 1 MG VIAL (J1610) SC (15:45)
[2017-12-13] MEDS ORDERED: BISACODYL 10 MG SUPP PR (15:45)
[2017-12-13] MEDS ORDERED: IPRATROPIUM 0.02% SOLN 0.5MG/2.5 ML NEB INH (15:45)
[2017-12-13] MEDS ORDERED: GLUCOSE 4 GM CHEW TABLET PO (15:45)
[2017-12-13] MEDS ORDERED: ACETAMINOPHEN TAB 650MG DOSE (2X325MG) PO (15:45)
[2017-12-13] MEDS ORDERED: ACETAMINOPHEN 500 MG TAB PO (15:45)
[2017-12-13] MEDS ORDERED: DEXTROSE 50% 50 ML SYRINGE IV (15:45)
[2017-12-13] MEDS ORDERED: ALBUTEROL 90 MCG/ACT 8GM HFA INHALER INH (15:45)
[2017-12-13] MEDS ORDERED: MIRALAX *UNIT DOSE* 17GM PACKET PO (15:45)
[2017-12-13] MEDS ORDERED: PERCOCET 5MG/325MG TAB PO (15:45)
[2017-12-13] MEDS: POTASSIUM CHLORIDE 10 MEQ SR TABLET PO (16:00)
[2017-12-13] MEDS ORDERED: IPRATROPIUM HFA INHALER 12.9 GRAMS (ATROVENT HFA) INH (16:30)
[2017-12-13] MEDS: metroNIDAZOLE 500 MG in APPROPRIATE DILUENT 1 EA IV ×2 (16:33→21:02)
[2017-12-13] MEDS: HumaLOG INSULIN (NovoLOG) PER UNIT SC (17:30)
[2017-12-13] MEDS: SUCRALFATE 1 GM TAB PO ×2 (17:30→20:58)
[2017-12-13] MEDS: ONDANSETRON 4 MG TAB (S0181) PO (18:32)
[2017-12-13 18:39] LABS: BEDSIDE GLUCOSE 141 MG/DL (83-110)
[2017-12-13] MEDS: PANTOPRAZOLE 40MG TAB (PROTONIX) PO (20:59)
[2017-12-13] MEDS: LOSARTAN 50 MG TAB PO (21:00)
[2017-12-13] MEDS: HumaLOG 75/25 MIX INSULIN PER UNIT SC (21:00)
[2017-12-13] MEDS: EZETIMIBE 10 MG TAB (ZETIA) PO (21:00)
[2017-12-13] MEDS: ADVAIR HFA 230/21MCG INHALER INH (21:00)
[2017-12-14 04:47] LABS: HEMATOCRIT 40.7 % (36.0-47.0); HEMOGLOBIN 13.1 g/dl (12.0-15.5); MEAN CORPUSCULAR HEMOGLOBIN 27.3 pg (27.0-33.0); MEAN CORPUSCULAR HGB CONC 32.2 g/dl (32.0-36.5); MEAN CORPUSCULAR VOLUME 84.8 fl (80.0-96.0); PLATELET COUNT, AUTOMATED 283 10^3/uL (150-450); RED CELL DISTRIBUTION WIDTH 12.4 % (11.5-14.5); WHITE BLOOD COUNT 10.3 10^3/uL (4.0-10.0)
[2017-12-14 05:25] LABS: ESTIMATED AVERAGE GLUCOSE 140 MG/DL (60-110); HEMOGLOBIN A1c 6.5 %
[2017-12-14 05:33] LABS: ALBUMIN 3.5 GM/DL (3.2-5.2); ALBUMIN/GLOBULIN RATIO 0.95 (1.00-1.93); ALKALINE PHOSPHATASE 66 U/L (45-117); ALT/SGPT 15 U/L (12-78); ANION GAP 9 MEQ/L (8-16); AST/SGOT 18 U/L (7-37); BILIRUBIN,TOTAL 0.5 MG/DL (0.2-1.0); BLOOD UREA NITROGEN 5 MG/DL (7-18); CALCIUM LEVEL 8.6 MG/DL (8.8-10.2); CARBON DIOXIDE LEVEL 32 MEQ/L (21-32); CHLORIDE LEVEL 98 MEQ/L (98-107); CREATININE FOR GFR 0.86 MG/DL (0.55-1.30); GLOMERULAR FILTRATION RATE > 60.0 (>39); GLUCOSE, FASTING 181 MG/DL (70-100); MAGNESIUM LEVEL 1.1 MG/DL (1.8-2.4); POTASSIUM SERUM 3.4 MEQ/L (3.5-5.1); SODIUM LEVEL 139 MEQ/L (136-145); TOTAL PROTEIN 7.2 GM/DL (6.4-8.2)
[2017-12-14] MEDS: MONTELUKAST 10 MG TAB PO (08:18)
[2017-12-14] MEDS: ASPIRIN 81 MG ENTERIC TAB PO (08:18)
[2017-12-14] MEDS: SERTRALINE 100 MG TAB PO (08:18)
[2017-12-14] MEDS: SIMVASTATIN 20 MG TAB PO (08:18)
[2017-12-14] MEDS: PANTOPRAZOLE 40MG TAB (PROTONIX) PO ×2 (08:18→22:25)
[2017-12-14] MEDS: CYANOCOBALAMIN 500 MCG TAB PO (08:19)
[2017-12-14] MEDS: ISOSORBIDE MON. (IMDUR) 30 MG XR TAB PO (08:19)
[2017-12-14] MEDS: METOPROLOL SUCC (TopROL XL) 50MG **XL** TAB PO (08:19)
[2017-12-14] MEDS: SUCRALFATE 1 GM TAB PO ×4 (08:19→22:26)
[2017-12-14] MEDS: POTASSIUM CHLORIDE 10 MEQ SR TABLET PO (08:20)
[2017-12-14] MEDS: LOSARTAN 50 MG TAB PO ×2 (08:20→22:25)
[2017-12-14] MEDS: HumaLOG INSULIN (NovoLOG) PER UNIT SC ×3 (08:20→17:52)
[2017-12-14] MEDS: ENOXAPARIN 40 MG/0.4 ML SYRINGE (J1650) SC (08:21)
[2017-12-14] MEDS: HumaLOG 75/25 MIX INSULIN PER UNIT SC ×2 (09:00→22:34)
[2017-12-14 09:01] LABS: BEDSIDE GLUCOSE 179 MG/DL (83-110)
[2017-12-14] MEDS: MAG SULF 1GM/100ML (MAG RUN) 1 GM in APPROPRIATE DILUENT 1 EA IV ×6 (10:15→17:52)
[2017-12-14] MEDS: ADVAIR HFA 230/21MCG INHALER INH ×2 (11:18→21:31)
[2017-12-14] MEDS: metroNIDAZOLE 500 MG in APPROPRIATE DILUENT 1 EA IV ×3 (11:55→22:25)
[2017-12-14] MEDS: ONDANSETRON 4MG/2ML VIAL (J2405) IV ×2 (11:56→18:08)
[2017-12-14] MEDS: MORPHINE 4 MG/ML 1ML VIAL/SYRINGE (J2270) IV ×3 (11:57→19:57)
[2017-12-14 12:00] LABS: BEDSIDE GLUCOSE 187 MG/DL (83-110)
[2017-12-14] MEDS: CIPROFLOXACIN 400 MG in APPROPRIATE DILUENT 1 EA IV ×2 (14:47)
[2017-12-14] MEDS: MAGNESIUM OXIDE 400 MG TAB (MAG-OX) PO ×2 (16:21→22:26)
[2017-12-14 16:35] LABS: BEDSIDE GLUCOSE 203 MG/DL (83-110)
[2017-12-14] MEDS: KCL 20MEQ in NS 1000ML 1,000 ML IV (18:55)
[2017-12-14] MEDS: NORCO, ANEXSIA 5/325MG TABLET (HYDROcodone/ACETAMINOPHEN) PO (19:56)
[2017-12-14 20:26] LABS: BEDSIDE GLUCOSE 122 MG/DL (83-110)
[2017-12-14] MEDS: EZETIMIBE 10 MG TAB (ZETIA) PO (22:26)
[2017-12-15] MEDS: CIPROFLOXACIN 400 MG in APPROPRIATE DILUENT 1 EA IV ×2 (00:14→12:41)
[2017-12-15] MEDS: KCL 20MEQ in NS 1000ML 1,000 ML IV ×2 (06:40→19:30)
[2017-12-15] MEDS: MORPHINE 4 MG/ML 1ML VIAL/SYRINGE (J2270) IV ×3 (06:41→12:42)
[2017-12-15] MEDS: HumaLOG 75/25 MIX INSULIN PER UNIT SC ×3 (07:30→21:06)
[2017-12-15] MEDS: ADVAIR HFA 230/21MCG INHALER INH ×2 (07:44→20:13)
[2017-12-15 07:57] LABS: BEDSIDE GLUCOSE 131 MG/DL (83-110)
[2017-12-15] MEDS: HumaLOG INSULIN (NovoLOG) PER UNIT SC ×3 (08:12→18:14)
[2017-12-15] MEDS: SUCRALFATE 1 GM TAB PO ×4 (08:12→21:05)
[2017-12-15] MEDS: metroNIDAZOLE 500 MG in APPROPRIATE DILUENT 1 EA IV ×3 (09:21→21:06)
[2017-12-15] MEDS: CYANOCOBALAMIN 500 MCG TAB PO (09:22)
[2017-12-15] MEDS: MAGNESIUM OXIDE 400 MG TAB (MAG-OX) PO ×3 (09:22→21:05)
[2017-12-15] MEDS: LOSARTAN 50 MG TAB PO ×2 (09:23→21:08)
[2017-12-15] MEDS: MONTELUKAST 10 MG TAB PO (09:23)
[2017-12-15] MEDS: ISOSORBIDE MON. (IMDUR) 30 MG XR TAB PO (09:23)
[2017-12-15] MEDS: SERTRALINE 100 MG TAB PO (09:23)
[2017-12-15] MEDS: PANTOPRAZOLE 40MG TAB (PROTONIX) PO ×2 (09:23→21:05)
[2017-12-15] MEDS: ASPIRIN 81 MG ENTERIC TAB PO (09:23)
[2017-12-15] MEDS: SIMVASTATIN 20 MG TAB PO (09:23)
[2017-12-15] MEDS: METOPROLOL SUCC (TopROL XL) 50MG **XL** TAB PO (09:24)
[2017-12-15] MEDS: ENOXAPARIN 40 MG/0.4 ML SYRINGE (J1650) SC (09:24)
[2017-12-15 11:52] LABS: BEDSIDE GLUCOSE 154 MG/DL (83-110)
[2017-12-15] MEDS: ONDANSETRON 4MG/2ML VIAL (J2405) IV (14:57)
[2017-12-15 15:45] LABS: MEAN CORPUSCULAR HEMOGLOBIN 28.2 pg (27.0-33.0); MEAN CORPUSCULAR HGB CONC 31.8 g/dl (32.0-36.5); MEAN CORPUSCULAR VOLUME 88.8 fl (80.0-96.0); PLATELET COUNT, AUTOMATED 275 10^3/uL (150-450); RED BLOOD COUNT 3.83 10^6/uL (4.00-5.40); RED CELL DISTRIBUTION WIDTH 13.2 % (11.5-14.5); WHITE BLOOD COUNT 8.8 10^3/uL (4.0-10.0)
[2017-12-15 15:52] LABS: HEMOGLOBIN 10.8 g/dl (12.0-15.5)
[2017-12-15 15:56] LABS: ANION GAP 9 MEQ/L (8-16); BLOOD UREA NITROGEN 11 MG/DL (7-18); CALCIUM LEVEL 8.4 MG/DL (8.8-10.2); CARBON DIOXIDE LEVEL 31 MEQ/L (21-32); CHLORIDE LEVEL 102 MEQ/L (98-107); CREATININE FOR GFR 1.94 MG/DL (0.55-1.30); GLOMERULAR FILTRATION RATE 27.1 (>39); GLUCOSE, FASTING 147 MG/DL (70-100); LIPASE 43 U/L (73-393); MAGNESIUM LEVEL 2.2 MG/DL (1.8-2.4); POTASSIUM SERUM 3.4 MEQ/L (3.5-5.1); SODIUM LEVEL 142 MEQ/L (136-145)
[2017-12-15 17:01] LABS: BEDSIDE GLUCOSE 157 MG/DL (83-110)
[2017-12-15] MEDS ORDERED: metFORMIN (GLUCOPHAGE) 500 MG TAB PO (18:00)
[2017-12-15 20:46] LABS: BEDSIDE GLUCOSE 172 MG/DL (83-110)
[2017-12-15] MEDS: EZETIMIBE 10 MG TAB (ZETIA) PO (21:05)
[2017-12-15] MEDS: NORCO, ANEXSIA 5/325MG TABLET (HYDROcodone/ACETAMINOPHEN) PO (21:07)
[2017-12-15 22:46] LABS: TROPONIN I 0.02 NG/ML (< 0.10)
[2017-12-16] MEDS: CIPROFLOXACIN 400 MG in APPROPRIATE DILUENT 1 EA IV ×2 (00:26→11:51)
[2017-12-16] MEDS: MORPHINE 4 MG/ML 1ML VIAL/SYRINGE (J2270) IV ×3 (00:27→15:01)
[2017-12-16] MEDS: KCL 20MEQ in NS 1000ML 1,000 ML IV (06:13)
[2017-12-16 06:38] LABS: HEMATOCRIT 33.3 % (36.0-47.0); HEMOGLOBIN 10.5 g/dl (12.0-15.5); MEAN CORPUSCULAR HEMOGLOBIN 27.3 pg (27.0-33.0); MEAN CORPUSCULAR HGB CONC 31.5 g/dl (32.0-36.5); MEAN CORPUSCULAR VOLUME 86.5 fl (80.0-96.0); PLATELET COUNT, AUTOMATED 239 10^3/uL (150-450); RED BLOOD COUNT 3.85 10^6/uL (4.00-5.40); WHITE BLOOD COUNT 5.9 10^3/uL (4.0-10.0)
[2017-12-16 06:44] LABS: BEDSIDE GLUCOSE 149 MG/DL (83-110)
[2017-12-16] MEDS: HumaLOG 75/25 MIX INSULIN PER UNIT SC ×2 (07:30→21:00)
[2017-12-16] MEDS: HumaLOG INSULIN (NovoLOG) PER UNIT SC ×3 (07:30→17:30)
[2017-12-16] MEDS: ADVAIR HFA 230/21MCG INHALER INH ×2 (07:33→20:02)
[2017-12-16] MEDS: ONDANSETRON 4MG/2ML VIAL (J2405) IV ×3 (07:45→20:16)
[2017-12-16] MEDS: SUCRALFATE 1 GM TAB PO ×4 (07:45→20:12)
[2017-12-16] MEDS: ISOSORBIDE MON. (IMDUR) 30 MG XR TAB PO (08:50)
[2017-12-16] MEDS: MAGNESIUM OXIDE 400 MG TAB (MAG-OX) PO ×3 (08:50→20:12)
[2017-12-16] MEDS: METOPROLOL SUCC (TopROL XL) 50MG **XL** TAB PO (08:51)
[2017-12-16] MEDS: SIMVASTATIN 20 MG TAB PO (08:51)
[2017-12-16] MEDS: MONTELUKAST 10 MG TAB PO (08:51)
[2017-12-16] MEDS: SERTRALINE 100 MG TAB PO (08:51)
[2017-12-16] MEDS: ASPIRIN 81 MG ENTERIC TAB PO (08:51)
[2017-12-16] MEDS: CYANOCOBALAMIN 500 MCG TAB PO (08:51)
[2017-12-16] MEDS: LOSARTAN 50 MG TAB PO ×2 (08:51→20:13)
[2017-12-16] MEDS: PANTOPRAZOLE 40MG TAB (PROTONIX) PO ×2 (08:51→20:11)
[2017-12-16] MEDS: ENOXAPARIN 40 MG/0.4 ML SYRINGE (J1650) SC (08:52)
[2017-12-16] MEDS: metroNIDAZOLE 500 MG in APPROPRIATE DILUENT 1 EA IV ×3 (08:52→20:13)
[2017-12-16 10:22] LABS: BASO % 0.2 % (0.0-1.0); EOS # 0.2 10^3/uL (0.0-0.50); EOS % 2.4 % (0.0-3.0); HEMATOCRIT 34.2 % (36.0-47.0); HEMOGLOBIN 10.7 g/dl (12.0-15.5); IMMATURE GRANULOCYTE % 0.2 % (0-3.0); LYMPH # 1.4 10^3/uL (1.5-4.5); LYMPH % 16.5 % (24.0-44.0); MEAN CORPUSCULAR HEMOGLOBIN 27.6 pg (27.0-33.0); MEAN CORPUSCULAR HGB CONC 31.3 g/dl (32.0-36.5); MEAN CORPUSCULAR VOLUME 88.4 fl (80.0-96.0); MONO # 0.8 10^3/uL (0.0-0.8); NEUTROPHILS # 6.2 10^3/uL (1.8-7.7); NEUTROPHILS % 71.7 % (36.0-66.0); PLATELET COUNT, AUTOMATED 259 10^3/uL (150-450); RED BLOOD COUNT 3.87 10^6/uL (4.00-5.40); WHITE BLOOD COUNT 8.7 10^3/uL (4.0-10.0)
[2017-12-16 10:41] LABS: ALBUMIN/GLOBULIN RATIO 0.86 (1.00-1.93); ALKALINE PHOSPHATASE 52 U/L (45-117); ALT/SGPT 11 U/L (12-78); AMYLASE 16 U/L (25-115); ANION GAP 7 MEQ/L (8-16); AST/SGOT 15 U/L (7-37); BILIRUBIN,DIRECT 0.2 MG/DL (0.0-0.2); BILIRUBIN,TOTAL 0.4 MG/DL (0.2-1.0); BLOOD UREA NITROGEN 12 MG/DL (7-18); CALCIUM LEVEL 8.4 MG/DL (8.8-10.2); CARBON DIOXIDE LEVEL 30 MEQ/L (21-32); CHLORIDE LEVEL 104 MEQ/L (98-107); GLOMERULAR FILTRATION RATE 21.2 (>39); GLUCOSE, FASTING 191 MG/DL (70-100); LIPASE 49 U/L (73-393); POTASSIUM SERUM 3.6 MEQ/L (3.5-5.1); SODIUM LEVEL 141 MEQ/L (136-145); TOTAL PROTEIN 6.5 GM/DL (6.4-8.2)
[2017-12-16 10:41] LABS: LACTIC ACID SEPSIS PROTOCOL 1.5 MMOL/L (0.4-2.0)
[2017-12-16] MEDS: EZETIMIBE 10 MG TAB (ZETIA) PO (20:12)
[2017-12-17] MEDS: CIPROFLOXACIN 400 MG in APPROPRIATE DILUENT 1 EA IV ×3 (00:20→23:05)
[2017-12-17] MEDS: KCL 20MEQ in NS 1000ML 1,000 ML IV (00:20)
[2017-12-17 06:32] LABS: BASO % 0.4 % (0.0-1.0); EOS # 0.2 10^3/uL (0.0-0.50); EOS % 3.5 % (0.0-3.0); HEMATOCRIT 32.3 % (36.0-47.0); HEMOGLOBIN 10.2 g/dl (12.0-15.5); IMMATURE GRANULOCYTE % 0.4 % (0-3.0); LYMPH # 1.4 10^3/uL (1.5-4.5); LYMPH % 26.3 % (24.0-44.0); MEAN CORPUSCULAR HEMOGLOBIN 27.8 pg (27.0-33.0); MEAN CORPUSCULAR HGB CONC 31.6 g/dl (32.0-36.5); MONO # 0.6 10^3/uL (0.0-0.8); MONO % 10.6 % (0.0-5.0); NEUTROPHILS # 3.2 10^3/uL (1.8-7.7); NEUTROPHILS % 58.8 % (36.0-66.0); PLATELET COUNT, AUTOMATED 252 10^3/uL (150-450); RED BLOOD COUNT 3.67 10^6/uL (4.00-5.40); RED CELL DISTRIBUTION WIDTH 13.1 % (11.5-14.5); WHITE BLOOD COUNT 5.5 10^3/uL (4.0-10.0)
[2017-12-17 06:51] LABS: ALBUMIN 2.9 GM/DL (3.2-5.2); ALBUMIN/GLOBULIN RATIO 0.88 (1.00-1.93); ALKALINE PHOSPHATASE 48 U/L (45-117); ALT/SGPT 10 U/L (12-78); ANION GAP 8 MEQ/L (8-16); AST/SGOT 13 U/L (7-37); BILIRUBIN,TOTAL 0.3 MG/DL (0.2-1.0); BLOOD UREA NITROGEN 11 MG/DL (7-18); CALCIUM LEVEL 8.4 MG/DL (8.8-10.2); CARBON DIOXIDE LEVEL 28 MEQ/L (21-32); CHLORIDE LEVEL 107 MEQ/L (98-107); CREATININE FOR GFR 2.17 MG/DL (0.55-1.30); GLOMERULAR FILTRATION RATE 23.8 (>39); GLUCOSE, FASTING 152 MG/DL (70-100); POTASSIUM SERUM 3.6 MEQ/L (3.5-5.1); SODIUM LEVEL 143 MEQ/L (136-145); TOTAL PROTEIN 6.2 GM/DL (6.4-8.2)
[2017-12-17] MEDS: ONDANSETRON 4MG/2ML VIAL (J2405) IV ×3 (06:53→20:05)
[2017-12-17] MEDS: MORPHINE 4 MG/ML 1ML VIAL/SYRINGE (J2270) IV ×4 (06:54→22:14)
[2017-12-17] MEDS: HumaLOG INSULIN (NovoLOG) PER UNIT SC ×3 (07:30→17:42)
[2017-12-17] MEDS: HumaLOG 75/25 MIX INSULIN PER UNIT SC (07:30)
[2017-12-17] MEDS: METOPROLOL TART 25 MG TABLET PO ×4 (07:43→23:05)
[2017-12-17] MEDS: ADVAIR HFA 230/21MCG INHALER INH ×2 (08:12→21:27)
[2017-12-17] MEDS: SUCRALFATE 1 GM TAB PO ×4 (08:17→20:05)
[2017-12-17] MEDS: MONTELUKAST 10 MG TAB PO (08:23)
[2017-12-17] MEDS: PANTOPRAZOLE 40MG TAB (PROTONIX) PO ×2 (08:23→20:04)
[2017-12-17] MEDS: CYANOCOBALAMIN 500 MCG TAB PO (08:23)
[2017-12-17] MEDS: SERTRALINE 100 MG TAB PO (08:23)
[2017-12-17] MEDS: ASPIRIN 81 MG ENTERIC TAB PO (08:23)
[2017-12-17] MEDS: SIMVASTATIN 20 MG TAB PO (08:23)
[2017-12-17] MEDS: MAGNESIUM OXIDE 400 MG TAB (MAG-OX) PO ×3 (08:24→20:05)
[2017-12-17] MEDS: ISOSORBIDE MON. (ISMO,MONOKET) 20 MG TAB PO ×2 (08:24→15:42)
[2017-12-17] MEDS: metroNIDAZOLE 500 MG in APPROPRIATE DILUENT 1 EA IV ×3 (08:25→20:05)
[2017-12-17] MEDS: ENOXAPARIN 40 MG/0.4 ML SYRINGE (J1650) SC (08:25)
[2017-12-17] MEDS: D5W/0.45% SODIUM CHLORIDE 1,000 ML IV ×2 (10:00→22:17)
[2017-12-17 11:50] LABS: BEDSIDE GLUCOSE 123 MG/DL (83-110)
[2017-12-17 11:50] LABS: BEDSIDE GLUCOSE 124 MG/DL (83-110)
[2017-12-17 11:50] LABS: BEDSIDE GLUCOSE 196 MG/DL (83-110)
[2017-12-17 11:50] LABS: BEDSIDE GLUCOSE 163 MG/DL (83-110)
[2017-12-17 11:50] LABS: BEDSIDE GLUCOSE 175 MG/DL (83-110)
[2017-12-17] MEDS: NORCO, ANEXSIA 5/325MG TABLET (HYDROcodone/ACETAMINOPHEN) PO (15:43)
[2017-12-17 16:37] LABS: BEDSIDE GLUCOSE 129 MG/DL (83-110)
[2017-12-17] MEDS: EZETIMIBE 10 MG TAB (ZETIA) PO (20:05)
[2017-12-18 00:21] LABS: BEDSIDE GLUCOSE 215 MG/DL (83-110)
[2017-12-18] MEDS: HumaLOG INSULIN (NovoLOG) PER UNIT SC ×4 (00:25→17:32)
[2017-12-18 05:42] LABS: BEDSIDE GLUCOSE 122 MG/DL (83-110)
[2017-12-18] MEDS: METOPROLOL TART 25 MG TABLET PO ×3 (06:01→17:42)
[2017-12-18] MEDS: MORPHINE 4 MG/ML 1ML VIAL/SYRINGE (J2270) IV ×4 (06:02→21:44)
[2017-12-18] MEDS: ONDANSETRON 4MG/2ML VIAL (J2405) IV (06:31)
[2017-12-18 06:45] LABS: BASO % 0.6 % (0.0-1.0); EOS # 0.3 10^3/uL (0.0-0.50); EOS % 3.6 % (0.0-3.0); HEMATOCRIT 32.7 % (36.0-47.0); HEMOGLOBIN 10.5 g/dl (12.0-15.5); IMMATURE GRANULOCYTE % 0.4 % (0-3.0); LYMPH # 1.5 10^3/uL (1.5-4.5); LYMPH % 21.5 % (24.0-44.0); MEAN CORPUSCULAR HEMOGLOBIN 28.2 pg (27.0-33.0); MEAN CORPUSCULAR HGB CONC 32.1 g/dl (32.0-36.5); MEAN CORPUSCULAR VOLUME 87.7 fl (80.0-96.0); MONO # 0.6 10^3/uL (0.0-0.8); NEUTROPHILS # 4.5 10^3/uL (1.8-7.7); NEUTROPHILS % 64.9 % (36.0-66.0); PLATELET COUNT, AUTOMATED 267 10^3/uL (150-450); RED BLOOD COUNT 3.73 10^6/uL (4.00-5.40); RED CELL DISTRIBUTION WIDTH 13.1 % (11.5-14.5); WHITE BLOOD COUNT 6.9 10^3/uL (4.0-10.0)
[2017-12-18 07:02] LABS: ALBUMIN 3.2 GM/DL (3.2-5.2); ALBUMIN/GLOBULIN RATIO 0.91 (1.00-1.93); ALKALINE PHOSPHATASE 47 U/L (45-117); ALT/SGPT 10 U/L (12-78); ANION GAP 7 MEQ/L (8-16); AST/SGOT 19 U/L (7-37); BILIRUBIN,TOTAL 0.3 MG/DL (0.2-1.0); BLOOD UREA NITROGEN 8 MG/DL (7-18); CALCIUM LEVEL 8.6 MG/DL (8.8-10.2); CARBON DIOXIDE LEVEL 31 MEQ/L (21-32); CHLORIDE LEVEL 104 MEQ/L (98-107); CREATININE FOR GFR 1.76 MG/DL (0.55-1.30); GLOMERULAR FILTRATION RATE 30.3 (>39); GLUCOSE, FASTING 140 MG/DL (70-100); POTASSIUM SERUM 3.2 MEQ/L (3.5-5.1); SODIUM LEVEL 142 MEQ/L (136-145); TOTAL PROTEIN 6.7 GM/DL (6.4-8.2)
[2017-12-18] MEDS: HumaLOG 75/25 MIX INSULIN PER UNIT SC (07:30)
[2017-12-18] MEDS: SUCRALFATE 1 GM TAB PO ×5 (07:59→21:31)
[2017-12-18] MEDS: ADVAIR HFA 230/21MCG INHALER INH ×2 (08:09→20:15)
[2017-12-18] MEDS ORDERED: GI COCKTAIL 50ML BTL(HYOSCYAMINE/MAALOX/LIDOCAINE VISCOUS)(1:3:1) PO (09:30)
[2017-12-18] MEDS: NORCO, ANEXSIA 5/325MG TABLET (HYDROcodone/ACETAMINOPHEN) PO (09:46)
[2017-12-18] MEDS: metroNIDAZOLE 500 MG in APPROPRIATE DILUENT 1 EA IV ×3 (09:46→21:30)
[2017-12-18] MEDS: ENOXAPARIN 40 MG/0.4 ML SYRINGE (J1650) SC (09:46)
[2017-12-18] MEDS: PANTOPRAZOLE 40MG TAB (PROTONIX) PO ×2 (09:47→21:31)
[2017-12-18] MEDS: ISOSORBIDE MON. (ISMO,MONOKET) 20 MG TAB PO ×2 (09:47→15:48)
[2017-12-18] MEDS: POTASSIUM CHLORIDE 10 MEQ SR TABLET PO (09:47)
[2017-12-18] MEDS: SIMVASTATIN 20 MG TAB PO (09:48)
[2017-12-18] MEDS: MONTELUKAST 10 MG TAB PO (09:48)
[2017-12-18] MEDS: ASPIRIN 81 MG ENTERIC TAB PO (09:48)
[2017-12-18] MEDS: MAGNESIUM OXIDE 400 MG TAB (MAG-OX) PO ×3 (09:48→21:31)
[2017-12-18] MEDS: CYANOCOBALAMIN 500 MCG TAB PO (09:48)
[2017-12-18] MEDS: SERTRALINE 100 MG TAB PO (09:48)
[2017-12-18] MEDS ORDERED: POTASSIUM CHLORIDE 10 MEQ SR TABLET PO (11:45)
[2017-12-18 12:18] LABS: BEDSIDE GLUCOSE 207 MG/DL (83-110)
[2017-12-18] MEDS: CIPROFLOXACIN 400 MG in APPROPRIATE DILUENT 1 EA IV (12:20)
[2017-12-18] MEDS: D5W/0.45% SODIUM CHLORIDE 1,000 ML IV (12:20)
[2017-12-18] MEDS: GI COCKTAIL 50ML BTL(HYOSCYAMINE/MAALOX/LIDOCAINE VISCOUS)(1:3:1) PO (12:23)
[2017-12-18 17:10] LABS: BEDSIDE GLUCOSE 111 MG/DL (83-110)
[2017-12-18] MEDS: EZETIMIBE 10 MG TAB (ZETIA) PO (21:31)
[2017-12-19 00:56] LABS: BEDSIDE GLUCOSE 172 MG/DL (83-110)
[2017-12-19] MEDS: METOPROLOL TART 25 MG TABLET PO ×6 (01:04→23:41)
[2017-12-19] MEDS: CIPROFLOXACIN 400 MG in APPROPRIATE DILUENT 1 EA IV (01:04)
[2017-12-19] MEDS: D5W/0.45% SODIUM CHLORIDE 1,000 ML IV ×2 (01:05→15:17)
[2017-12-19] MEDS: HumaLOG INSULIN (NovoLOG) PER UNIT SC ×4 (01:05→18:10)
[2017-12-19 05:53] LABS: BEDSIDE GLUCOSE 160 MG/DL (83-110)
[2017-12-19] MEDS: MORPHINE 4 MG/ML 1ML VIAL/SYRINGE (J2270) IV ×3 (06:01→23:41)
[2017-12-19] MEDS: ONDANSETRON 4MG/2ML VIAL (J2405) IV (06:08)
[2017-12-19 06:53] LABS: BASO % 0.4 % (0.0-1.0); EOS # 0.2 10^3/uL (0.0-0.50); EOS % 3.1 % (0.0-3.0); HEMATOCRIT 31.2 % (36.0-47.0); IMMATURE GRANULOCYTE % 0.4 % (0-3.0); LYMPH # 1.2 10^3/uL (1.5-4.5); LYMPH % 15.7 % (24.0-44.0); MEAN CORPUSCULAR HEMOGLOBIN 28.2 pg (27.0-33.0); MEAN CORPUSCULAR HGB CONC 32.1 g/dl (32.0-36.5); MEAN CORPUSCULAR VOLUME 87.9 fl (80.0-96.0); MONO # 0.6 10^3/uL (0.0-0.8); MONO % 8.5 % (0.0-5.0); NEUTROPHILS # 5.3 10^3/uL (1.8-7.7); NEUTROPHILS % 71.9 % (36.0-66.0); PLATELET COUNT, AUTOMATED 243 10^3/uL (150-450); RED BLOOD COUNT 3.55 10^6/uL (4.00-5.40); RED CELL DISTRIBUTION WIDTH 13.2 % (11.5-14.5); WHITE BLOOD COUNT 7.3 10^3/uL (4.0-10.0)
[2017-12-19 07:14] LABS: ALBUMIN 2.9 GM/DL (3.2-5.2); ALBUMIN/GLOBULIN RATIO 0.83 (1.00-1.93); ALKALINE PHOSPHATASE 48 U/L (45-117); ALT/SGPT 10 U/L (12-78); ANION GAP 8 MEQ/L (8-16); AST/SGOT 21 U/L (7-37); BILIRUBIN,TOTAL 0.4 MG/DL (0.2-1.0); BLOOD UREA NITROGEN 6 MG/DL (7-18); CALCIUM LEVEL 8.8 MG/DL (8.8-10.2); CARBON DIOXIDE LEVEL 29 MEQ/L (21-32); CHLORIDE LEVEL 105 MEQ/L (98-107); CREATININE FOR GFR 1.43 MG/DL (0.55-1.30); GLOMERULAR FILTRATION RATE 38.5 (>39); GLUCOSE, FASTING 173 MG/DL (70-100); POTASSIUM SERUM 3.3 MEQ/L (3.5-5.1); SODIUM LEVEL 142 MEQ/L (136-145); TOTAL PROTEIN 6.4 GM/DL (6.4-8.2)
[2017-12-19] MEDS: HumaLOG 75/25 MIX INSULIN PER UNIT SC (07:32)
[2017-12-19] MEDS: ADVAIR HFA 230/21MCG INHALER INH ×2 (07:50→20:10)
[2017-12-19] MEDS: SUCRALFATE 1 GM TAB PO ×4 (08:12→21:35)
[2017-12-19] MEDS: ASPIRIN 81 MG ENTERIC TAB PO (08:12)
[2017-12-19] MEDS: PANTOPRAZOLE 40MG TAB (PROTONIX) PO ×2 (08:12→21:36)
[2017-12-19] MEDS: MONTELUKAST 10 MG TAB PO (08:12)
[2017-12-19] MEDS: metroNIDAZOLE 500 MG in APPROPRIATE DILUENT 1 EA IV (08:12)
[2017-12-19] MEDS: SERTRALINE 100 MG TAB PO (08:12)
[2017-12-19] MEDS: ISOSORBIDE MON. (ISMO,MONOKET) 20 MG TAB PO ×2 (08:12→18:08)
[2017-12-19] MEDS: CYANOCOBALAMIN 500 MCG TAB PO (08:12)
[2017-12-19] MEDS: SIMVASTATIN 20 MG TAB PO (08:12)
[2017-12-19] MEDS: MAGNESIUM OXIDE 400 MG TAB (MAG-OX) PO ×3 (08:12→21:36)
[2017-12-19] MEDS: ENOXAPARIN 40 MG/0.4 ML SYRINGE (J1650) SC (08:13)
[2017-12-19] MEDS ORDERED: E-Z-PAQUE 96% w/w SUSP 176GM BTL As Ordered (10:23)
[2017-12-19] MEDS ORDERED: E-Z-GAS II EFFERVESCENT PACKET (SODIUM BICARB./CITRIC ACID/SIMETHICONE) As Ordered (10:23)
[2017-12-19] MEDS ORDERED: E-Z-HD 98% w/w 340GM SUSP BTL As Ordered (10:24)
[2017-12-19] MEDS ORDERED: NYSTATIN 100,000 UNITS/GM TOPICAL PWD 15 GM TOP (10:30)
[2017-12-19 12:12] LABS: AMYLASE 16 U/L (25-115); LIPASE 50 U/L (73-393)
[2017-12-19 13:37] LABS: BEDSIDE GLUCOSE 154 MG/DL (83-110)
[2017-12-19] MEDS: PROMETHAZINE INJ 25 MG/ML VIAL (J2550) IM (13:53)
[2017-12-19] MEDS: POTASSIUM CHLORIDE 10 MEQ SR TABLET PO (13:54)
[2017-12-19 17:36] LABS: BEDSIDE GLUCOSE 171 MG/DL (83-110)
[2017-12-19] MEDS: EZETIMIBE 10 MG TAB (ZETIA) PO (21:36)
[2017-12-19] MEDS ORDERED: GLUCAGON FOR INJ 1 MG VIAL (J1610) SC (23:00)
[2017-12-19] MEDS ORDERED: GLUCOSE 4 GM CHEW TABLET PO (23:00)
[2017-12-19] MEDS ORDERED: DEXTROSE 50% 50 ML SYRINGE IV (23:00)
[2017-12-19 23:34] LABS: BEDSIDE GLUCOSE 173 MG/DL (83-110)
[2017-12-19] MEDS ORDERED: PILL CRUSHER/CUTTER 1 EACH XX (23:45)
[2017-12-19] MEDS: PROMETHAZINE INJ 25 MG/ML VIAL (J2550) IV (23:52)
[2017-12-20] MEDS: D5W/0.45% SODIUM CHLORIDE 1,000 ML IV ×2 (00:25→12:48)
[2017-12-20] MEDS: METOPROLOL TART 25 MG TABLET PO (06:11)
[2017-12-20 06:24] LABS: BASO % 0.7 % (0.0-1.0); EOS # 0.3 10^3/uL (0.0-0.50); HEMATOCRIT 31.8 % (36.0-47.0); IMMATURE GRANULOCYTE % 0.5 % (0-3.0); LYMPH # 1.5 10^3/uL (1.5-4.5); LYMPH % 26.6 % (24.0-44.0); MEAN CORPUSCULAR HGB CONC 31.4 g/dl (32.0-36.5); MEAN CORPUSCULAR VOLUME 89.1 fl (80.0-96.0); MONO # 0.6 10^3/uL (0.0-0.8); MONO % 10.2 % (0.0-5.0); NEUTROPHILS # 3.2 10^3/uL (1.8-7.7); PLATELET COUNT, AUTOMATED 237 10^3/uL (150-450); RED BLOOD COUNT 3.57 10^6/uL (4.00-5.40); RED CELL DISTRIBUTION WIDTH 13.3 % (11.5-14.5); WHITE BLOOD COUNT 5.6 10^3/uL (4.0-10.0)
[2017-12-20 06:45] LABS: ALBUMIN 2.8 GM/DL (3.2-5.2); ALKALINE PHOSPHATASE 51 U/L (45-117); ALT/SGPT 11 U/L (12-78); ANION GAP 5 MEQ/L (8-16); AST/SGOT 21 U/L (7-37); BILIRUBIN,TOTAL 0.3 MG/DL (0.2-1.0); BLOOD UREA NITROGEN 5 MG/DL (7-18); CALCIUM LEVEL 8.5 MG/DL (8.8-10.2); CARBON DIOXIDE LEVEL 33 MEQ/L (21-32); CHLORIDE LEVEL 105 MEQ/L (98-107); GLUCOSE, FASTING 186 MG/DL (70-100); POTASSIUM SERUM 3.5 MEQ/L (3.5-5.1); SODIUM LEVEL 143 MEQ/L (136-145); TOTAL PROTEIN 6.3 GM/DL (6.4-8.2)
[2017-12-20] MEDS: PROMETHAZINE INJ 25 MG/ML VIAL (J2550) IV ×2 (07:00→15:20)
[2017-12-20] MEDS: MORPHINE 4 MG/ML 1ML VIAL/SYRINGE (J2270) IV ×3 (07:00→20:41)
[2017-12-20] MEDS: ADVAIR HFA 230/21MCG INHALER INH ×2 (07:36→21:00)
[2017-12-20] MEDS: ENOXAPARIN 40 MG/0.4 ML SYRINGE (J1650) SC (09:24)
[2017-12-20] MEDS: CYANOCOBALAMIN 500 MCG TAB PO (09:24)
[2017-12-20] MEDS: PANTOPRAZOLE 40MG TAB (PROTONIX) PO ×2 (09:25→20:44)
[2017-12-20] MEDS: MAGNESIUM OXIDE 400 MG TAB (MAG-OX) PO ×3 (09:25→20:44)
[2017-12-20] MEDS: ISOSORBIDE MON. (ISMO,MONOKET) 20 MG TAB PO (09:25)
[2017-12-20] MEDS: SIMVASTATIN 20 MG TAB PO (09:26)
[2017-12-20] MEDS: ASPIRIN 81 MG ENTERIC TAB PO (09:26)
[2017-12-20] MEDS: SUCRALFATE 1 GM TAB PO ×4 (09:26→20:44)
[2017-12-20] MEDS: MONTELUKAST 10 MG TAB PO (09:26)
[2017-12-20] MEDS: SERTRALINE 100 MG TAB PO (09:26)
[2017-12-20] MEDS: HumaLOG 75/25 MIX INSULIN PER UNIT SC (09:27)
[2017-12-20] MEDS: LOSARTAN 50 MG TAB PO ×2 (10:34→20:44)
[2017-12-20] MEDS: ISOSORBIDE MON. (IMDUR) 30 MG XR TAB PO (10:35)
[2017-12-20] MEDS: METOPROLOL SUCC (TopROL XL) 50MG **XL** TAB PO (10:35)
[2017-12-20 11:56] LABS: BEDSIDE GLUCOSE 191 MG/DL (83-110)
[2017-12-20] MEDS: cloNIDine 0.1 MG TAB PO ×2 (15:21→20:44)
[2017-12-20 16:46] LABS: BEDSIDE GLUCOSE 99 MG/DL (83-110)
[2017-12-20 20:35] LABS: BEDSIDE GLUCOSE 133 MG/DL (83-110)
[2017-12-20] MEDS: EZETIMIBE 10 MG TAB (ZETIA) PO (20:44)
[2017-12-21] MEDS: D5W/0.45% SODIUM CHLORIDE 1,000 ML IV (00:53)
[2017-12-21] MEDS: cloNIDine 0.1 MG TAB PO ×2 (00:53→04:50)
[2017-12-21 06:37] LABS: BASO % 0.4 % (0.0-1.0); EOS # 0.2 10^3/uL (0.0-0.50); HEMATOCRIT 29.4 % (36.0-47.0); HEMOGLOBIN 9.1 g/dl (12.0-15.5); IMMATURE GRANULOCYTE % 0.4 % (0-3.0); LYMPH # 1.5 10^3/uL (1.5-4.5); LYMPH % 27.9 % (24.0-44.0); MEAN CORPUSCULAR HEMOGLOBIN 27.7 pg (27.0-33.0); MEAN CORPUSCULAR VOLUME 89.4 fl (80.0-96.0); MONO # 0.6 10^3/uL (0.0-0.8); MONO % 10.2 % (0.0-5.0); NEUTROPHILS # 3.1 10^3/uL (1.8-7.7); NEUTROPHILS % 57.1 % (36.0-66.0); PLATELET COUNT, AUTOMATED 230 10^3/uL (150-450); RED BLOOD COUNT 3.29 10^6/uL (4.00-5.40); RED CELL DISTRIBUTION WIDTH 13.3 % (11.5-14.5); WHITE BLOOD COUNT 5.5 10^3/uL (4.0-10.0)
[2017-12-21 06:58] LABS: ALBUMIN 2.6 GM/DL (3.2-5.2); ALBUMIN/GLOBULIN RATIO 0.84 (1.00-1.93); ALKALINE PHOSPHATASE 43 U/L (45-117); ALT/SGPT 11 U/L (12-78); ANION GAP 5 MEQ/L (8-16); AST/SGOT 17 U/L (7-37); BILIRUBIN,TOTAL 0.3 MG/DL (0.2-1.0); BLOOD UREA NITROGEN 5 MG/DL (7-18); CALCIUM LEVEL 8.2 MG/DL (8.8-10.2); CARBON DIOXIDE LEVEL 34 MEQ/L (21-32); CHLORIDE LEVEL 106 MEQ/L (98-107); CREATININE FOR GFR 1.09 MG/DL (0.55-1.30); GLOMERULAR FILTRATION RATE 52.7 (>39); GLUCOSE, FASTING 144 MG/DL (70-100); POTASSIUM SERUM 3.4 MEQ/L (3.5-5.1); SODIUM LEVEL 145 MEQ/L (136-145); TOTAL PROTEIN 5.7 GM/DL (6.4-8.2)
[2017-12-21] MEDS: ADVAIR HFA 230/21MCG INHALER INH ×2 (07:25→21:21)
[2017-12-21] MEDS: HumaLOG 75/25 MIX INSULIN PER UNIT SC (07:30)
[2017-12-21] MEDS: PROMETHAZINE INJ 25 MG/ML VIAL (J2550) IV ×2 (09:37→14:02)
[2017-12-21] MEDS: ENOXAPARIN 40 MG/0.4 ML SYRINGE (J1650) SC (09:37)
[2017-12-21] MEDS: MORPHINE 4 MG/ML 1ML VIAL/SYRINGE (J2270) IV ×2 (09:38→22:21)
[2017-12-21] MEDS: CYANOCOBALAMIN 500 MCG TAB PO (09:40)
[2017-12-21] MEDS: PANTOPRAZOLE 40MG TAB (PROTONIX) PO ×2 (09:40→21:17)
[2017-12-21] MEDS: LOSARTAN 25 MG TAB PO ×2 (09:40→21:00)
[2017-12-21] MEDS: SUCRALFATE 1 GM TAB PO ×4 (09:40→21:17)
[2017-12-21] MEDS: SIMVASTATIN 20 MG TAB PO (09:40)
[2017-12-21] MEDS: ISOSORBIDE MON. (IMDUR) 60 MG XR TAB PO (09:41)
[2017-12-21] MEDS: MONTELUKAST 10 MG TAB PO (09:41)
[2017-12-21] MEDS: METOPROLOL SUCC (TopROL XL) 50MG **XL** TAB PO (09:41)
[2017-12-21] MEDS: MAGNESIUM OXIDE 400 MG TAB (MAG-OX) PO ×3 (09:42→21:17)
[2017-12-21] MEDS: SERTRALINE 100 MG TAB PO (09:42)
[2017-12-21] MEDS: ASPIRIN 81 MG ENTERIC TAB PO (09:42)
[2017-12-21] MEDS: POTASSIUM CHLORIDE 10 MEQ SR TABLET PO (09:43)
[2017-12-21] MEDS: NORCO, ANEXSIA 5/325MG TABLET (HYDROcodone/ACETAMINOPHEN) PO (13:49)
[2017-12-21 19:40] LABS: BEDSIDE GLUCOSE 169 MG/DL (83-110)
[2017-12-21] MEDS: EZETIMIBE 10 MG TAB (ZETIA) PO (21:17)
[2017-12-22] MEDS: PROMETHAZINE INJ 25 MG/ML VIAL (J2550) IV (03:41)
[2017-12-22] MEDS: MORPHINE 4 MG/ML 1ML VIAL/SYRINGE (J2270) IV ×2 (03:41→10:28)
[2017-12-22] MEDS: ADVAIR HFA 230/21MCG INHALER INH ×3 (06:18→21:46)
[2017-12-22 06:41] LABS: BASO % 0.5 % (0.0-1.0); EOS # 0.3 10^3/uL (0.0-0.50); EOS % 4.4 % (0.0-3.0); HEMATOCRIT 29.4 % (36.0-47.0); HEMOGLOBIN 9.1 g/dl (12.0-15.5); IMMATURE GRANULOCYTE % 0.3 % (0-3.0); LYMPH # 1.6 10^3/uL (1.5-4.5); LYMPH % 27.9 % (24.0-44.0); MEAN CORPUSCULAR HEMOGLOBIN 27.5 pg (27.0-33.0); MEAN CORPUSCULAR VOLUME 88.8 fl (80.0-96.0); MONO # 0.5 10^3/uL (0.0-0.8); MONO % 9.2 % (0.0-5.0); NEUTROPHILS # 3.4 10^3/uL (1.8-7.7); NEUTROPHILS % 57.7 % (36.0-66.0); PLATELET COUNT, AUTOMATED 236 10^3/uL (150-450); RED BLOOD COUNT 3.31 10^6/uL (4.00-5.40); RED CELL DISTRIBUTION WIDTH 13.3 % (11.5-14.5); WHITE BLOOD COUNT 5.9 10^3/uL (4.0-10.0)
[2017-12-22 06:51] LABS: ANION GAP 6 MEQ/L (8-16); BLOOD UREA NITROGEN 6 MG/DL (7-18); CARBON DIOXIDE LEVEL 34 MEQ/L (21-32); CHLORIDE LEVEL 106 MEQ/L (98-107); CREATININE FOR GFR 1.19 MG/DL (0.55-1.30); GLOMERULAR FILTRATION RATE 47.6 (>39); GLUCOSE, FASTING 150 MG/DL (70-100); POTASSIUM SERUM 3.8 MEQ/L (3.5-5.1); SODIUM LEVEL 146 MEQ/L (136-145)
[2017-12-22] MEDS: HumaLOG 75/25 MIX INSULIN PER UNIT SC (07:30)
[2017-12-22] MEDS: MAGNESIUM OXIDE 400 MG TAB (MAG-OX) PO ×3 (08:31→21:36)
[2017-12-22] MEDS: LOSARTAN 25 MG TAB PO ×2 (08:31→21:37)
[2017-12-22] MEDS: PANTOPRAZOLE 40MG TAB (PROTONIX) PO ×2 (08:31→21:35)
[2017-12-22] MEDS: SERTRALINE 100 MG TAB PO (08:31)
[2017-12-22] MEDS: ASPIRIN 81 MG ENTERIC TAB PO (08:31)
[2017-12-22] MEDS: METOPROLOL SUCC (TopROL XL) 50MG **XL** TAB PO (08:32)
[2017-12-22] MEDS: CYANOCOBALAMIN 500 MCG TAB PO (08:32)
[2017-12-22] MEDS: ISOSORBIDE MON. (IMDUR) 60 MG XR TAB PO (08:32)
[2017-12-22] MEDS: SIMVASTATIN 20 MG TAB PO (08:32)
[2017-12-22] MEDS: MONTELUKAST 10 MG TAB PO (08:32)
[2017-12-22] MEDS: SUCRALFATE 1 GM TAB PO ×4 (08:32→21:35)
[2017-12-22] MEDS: ENOXAPARIN 40 MG/0.4 ML SYRINGE (J1650) SC (08:33)
[2017-12-22 11:35] LABS: BEDSIDE GLUCOSE 172 MG/DL (83-110)
[2017-12-22] MEDS: GI COCKTAIL 50ML BTL(HYOSCYAMINE/MAALOX/LIDOCAINE VISCOUS)(1:3:1) PO (14:39)
[2017-12-22] MEDS: NORCO, ANEXSIA 5/325MG TABLET (HYDROcodone/ACETAMINOPHEN) PO ×2 (15:59→21:36)
[2017-12-22 16:29] LABS: BEDSIDE GLUCOSE 154 MG/DL (83-110)
[2017-12-22 20:28] LABS: BEDSIDE GLUCOSE 163 MG/DL (83-110)
[2017-12-22] MEDS: EZETIMIBE 10 MG TAB (ZETIA) PO (21:35)
[2017-12-23 06:23] LABS: BASO % 0.3 % (0.0-1.0); EOS # 0.2 10^3/uL (0.0-0.50); EOS % 3.2 % (0.0-3.0); HEMOGLOBIN 9.5 g/dl (12.0-15.5); IMMATURE GRANULOCYTE % 0.7 % (0-3.0); LYMPH # 1.7 10^3/uL (1.5-4.5); LYMPH % 29.2 % (24.0-44.0); MEAN CORPUSCULAR HEMOGLOBIN 27.6 pg (27.0-33.0); MEAN CORPUSCULAR HGB CONC 31.7 g/dl (32.0-36.5); MEAN CORPUSCULAR VOLUME 87.2 fl (80.0-96.0); MONO # 0.5 10^3/uL (0.0-0.8); MONO % 8.1 % (0.0-5.0); NEUTROPHILS # 3.5 10^3/uL (1.8-7.7); NEUTROPHILS % 58.5 % (36.0-66.0); PLATELET COUNT, AUTOMATED 231 10^3/uL (150-450); RED BLOOD COUNT 3.44 10^6/uL (4.00-5.40); RED CELL DISTRIBUTION WIDTH 13.2 % (11.5-14.5); WHITE BLOOD COUNT 5.9 10^3/uL (4.0-10.0)
[2017-12-23 06:46] LABS: ANION GAP 5 MEQ/L (8-16); BLOOD UREA NITROGEN 9 MG/DL (7-18); CARBON DIOXIDE LEVEL 36 MEQ/L (21-32); CHLORIDE LEVEL 102 MEQ/L (98-107); CREATININE FOR GFR 1.18 MG/DL (0.55-1.30); GLOMERULAR FILTRATION RATE 48.1 (>39); GLUCOSE, FASTING 137 MG/DL (70-100); POTASSIUM SERUM 3.9 MEQ/L (3.5-5.1); SODIUM LEVEL 143 MEQ/L (136-145)
[2017-12-23] MEDS: HumaLOG 75/25 MIX INSULIN PER UNIT SC (06:54)
[2017-12-23] MEDS: NORCO, ANEXSIA 5/325MG TABLET (HYDROcodone/ACETAMINOPHEN) PO ×4 (07:23→20:28)
[2017-12-23] MEDS: SUCRALFATE 1 GM TAB PO ×4 (07:23→20:26)
[2017-12-23] MEDS: SIMVASTATIN 20 MG TAB PO (08:06)
[2017-12-23] MEDS: CYANOCOBALAMIN 500 MCG TAB PO (08:06)
[2017-12-23] MEDS: MAGNESIUM OXIDE 400 MG TAB (MAG-OX) PO ×3 (08:06→20:27)
[2017-12-23] MEDS: LOSARTAN 25 MG TAB PO ×2 (08:06→20:28)
[2017-12-23] MEDS: PANTOPRAZOLE 40MG TAB (PROTONIX) PO ×2 (08:06→20:26)
[2017-12-23] MEDS: SERTRALINE 100 MG TAB PO (08:06)
[2017-12-23] MEDS: ASPIRIN 81 MG ENTERIC TAB PO (08:06)
[2017-12-23] MEDS: METOPROLOL SUCC (TopROL XL) 50MG **XL** TAB PO (08:07)
[2017-12-23] MEDS: ISOSORBIDE MON. (IMDUR) 60 MG XR TAB PO (08:07)
[2017-12-23] MEDS: MONTELUKAST 10 MG TAB PO (08:08)
[2017-12-23] MEDS: ENOXAPARIN 40 MG/0.4 ML SYRINGE (J1650) SC (08:08)
[2017-12-23] MEDS: ADVAIR HFA 230/21MCG INHALER INH ×2 (09:30→21:04)
[2017-12-23] MEDS: GI COCKTAIL 50ML BTL(HYOSCYAMINE/MAALOX/LIDOCAINE VISCOUS)(1:3:1) PO (09:30)
[2017-12-23 11:59] LABS: BEDSIDE GLUCOSE 160 MG/DL (83-110)
[2017-12-23 17:51] LABS: BEDSIDE GLUCOSE 172 MG/DL (83-110)
[2017-12-23 19:56] LABS: BEDSIDE GLUCOSE 161 MG/DL (83-110)
[2017-12-23] MEDS: EZETIMIBE 10 MG TAB (ZETIA) PO (20:26)
[2017-12-24 06:32] LABS: BASO % 0.5 % (0.0-1.0); EOS # 0.2 10^3/uL (0.0-0.50); EOS % 3.5 % (0.0-3.0); HEMOGLOBIN 10.1 g/dl (12.0-15.5); IMMATURE GRANULOCYTE % 0.3 % (0-3.0); LYMPH % 32.9 % (24.0-44.0); MEAN CORPUSCULAR HEMOGLOBIN 27.7 pg (27.0-33.0); MEAN CORPUSCULAR HGB CONC 31.6 g/dl (32.0-36.5); MEAN CORPUSCULAR VOLUME 87.7 fl (80.0-96.0); MONO # 0.5 10^3/uL (0.0-0.8); MONO % 8.9 % (0.0-5.0); NEUTROPHILS # 3.3 10^3/uL (1.8-7.7); NEUTROPHILS % 53.9 % (36.0-66.0); PLATELET COUNT, AUTOMATED 243 10^3/uL (150-450); RED BLOOD COUNT 3.65 10^6/uL (4.00-5.40); RED CELL DISTRIBUTION WIDTH 13.1 % (11.5-14.5); WHITE BLOOD COUNT 6.1 10^3/uL (4.0-10.0)
[2017-12-24 06:43] LABS: ANION GAP 7 MEQ/L (8-16); BLOOD UREA NITROGEN 11 MG/DL (7-18); CALCIUM LEVEL 9.4 MG/DL (8.8-10.2); CARBON DIOXIDE LEVEL 38 MEQ/L (21-32); CHLORIDE LEVEL 99 MEQ/L (98-107); CREATININE FOR GFR 1.18 MG/DL (0.55-1.30); GLOMERULAR FILTRATION RATE 48.1 (>39); GLUCOSE, FASTING 154 MG/DL (70-100); POTASSIUM SERUM 4.2 MEQ/L (3.5-5.1); SODIUM LEVEL 144 MEQ/L (136-145)
[2017-12-24] MEDS: GI COCKTAIL 50ML BTL(HYOSCYAMINE/MAALOX/LIDOCAINE VISCOUS)(1:3:1) PO (06:48)
[2017-12-24] MEDS: NORCO, ANEXSIA 5/325MG TABLET (HYDROcodone/ACETAMINOPHEN) PO ×3 (06:48→20:07)
[2017-12-24] MEDS: ADVAIR HFA 230/21MCG INHALER INH ×2 (08:12→21:01)
[2017-12-24] MEDS: HumaLOG 75/25 MIX INSULIN PER UNIT SC (08:17)
[2017-12-24] MEDS: SUCRALFATE 1 GM TAB PO ×4 (08:17→20:03)
[2017-12-24] MEDS: PANTOPRAZOLE 40MG TAB (PROTONIX) PO ×2 (08:18→20:03)
[2017-12-24] MEDS: ASPIRIN 81 MG ENTERIC TAB PO (08:18)
[2017-12-24] MEDS: CYANOCOBALAMIN 500 MCG TAB PO (08:18)
[2017-12-24] MEDS: MAGNESIUM OXIDE 400 MG TAB (MAG-OX) PO ×3 (08:18→20:04)
[2017-12-24] MEDS: SERTRALINE 100 MG TAB PO (08:18)
[2017-12-24] MEDS: SIMVASTATIN 20 MG TAB PO (08:19)
[2017-12-24] MEDS: METOPROLOL SUCC (TopROL XL) 50MG **XL** TAB PO (08:19)
[2017-12-24] MEDS: LOSARTAN 25 MG TAB PO ×2 (08:19→20:05)
[2017-12-24] MEDS: ISOSORBIDE MON. (IMDUR) 60 MG XR TAB PO (08:19)
[2017-12-24] MEDS: ENOXAPARIN 40 MG/0.4 ML SYRINGE (J1650) SC (08:20)
[2017-12-24] MEDS: MONTELUKAST 10 MG TAB PO (08:20)
[2017-12-24 11:38] LABS: BEDSIDE GLUCOSE 156 MG/DL (83-110)
[2017-12-24 17:59] LABS: BEDSIDE GLUCOSE 147 MG/DL (83-110)
[2017-12-24] MEDS: EZETIMIBE 10 MG TAB (ZETIA) PO (20:03)
[2017-12-24 20:16] LABS: BEDSIDE GLUCOSE 219 MG/DL (83-110)
[2017-12-25 06:45] LABS: BASO % 0.3 % (0.0-1.0); EOS # 0.2 10^3/uL (0.0-0.50); EOS % 3.8 % (0.0-3.0); HEMATOCRIT 33.1 % (36.0-47.0); HEMOGLOBIN 10.4 g/dl (12.0-15.5); IMMATURE GRANULOCYTE % 0.3 % (0-3.0); LYMPH # 1.8 10^3/uL (1.5-4.5); LYMPH % 31.7 % (24.0-44.0); MEAN CORPUSCULAR HEMOGLOBIN 27.4 pg (27.0-33.0); MEAN CORPUSCULAR HGB CONC 31.4 g/dl (32.0-36.5); MEAN CORPUSCULAR VOLUME 87.3 fl (80.0-96.0); MONO # 0.5 10^3/uL (0.0-0.8); MONO % 8.5 % (0.0-5.0); NEUTROPHILS # 3.2 10^3/uL (1.8-7.7); NEUTROPHILS % 55.4 % (36.0-66.0); PLATELET COUNT, AUTOMATED 249 10^3/uL (150-450); RED BLOOD COUNT 3.79 10^6/uL (4.00-5.40); RED CELL DISTRIBUTION WIDTH 12.9 % (11.5-14.5); WHITE BLOOD COUNT 5.8 10^3/uL (4.0-10.0)
[2017-12-25 07:01] LABS: ANION GAP 5 MEQ/L (8-16); BLOOD UREA NITROGEN 11 MG/DL (7-18); CALCIUM LEVEL 8.9 MG/DL (8.8-10.2); CARBON DIOXIDE LEVEL 37 MEQ/L (21-32); CHLORIDE LEVEL 101 MEQ/L (98-107); CREATININE FOR GFR 1.24 MG/DL (0.55-1.30); GLOMERULAR FILTRATION RATE 45.4 (>39); GLUCOSE, FASTING 150 MG/DL (70-100); POTASSIUM SERUM 4.1 MEQ/L (3.5-5.1); SODIUM LEVEL 143 MEQ/L (136-145)
[2017-12-25] MEDS: HumaLOG 75/25 MIX INSULIN PER UNIT SC (07:43)
[2017-12-25] MEDS: SUCRALFATE 1 GM TAB PO ×4 (07:43→20:42)
[2017-12-25] MEDS: NORCO, ANEXSIA 5/325MG TABLET (HYDROcodone/ACETAMINOPHEN) PO ×2 (08:08→15:17)
[2017-12-25] MEDS: CYANOCOBALAMIN 500 MCG TAB PO (08:08)
[2017-12-25] MEDS: ENOXAPARIN 40 MG/0.4 ML SYRINGE (J1650) SC (08:08)
[2017-12-25] MEDS: LOSARTAN 25 MG TAB PO ×2 (08:09→20:42)
[2017-12-25] MEDS: ISOSORBIDE MON. (IMDUR) 60 MG XR TAB PO (08:09)
[2017-12-25] MEDS: ASPIRIN 81 MG ENTERIC TAB PO (08:09)
[2017-12-25] MEDS: PANTOPRAZOLE 40MG TAB (PROTONIX) PO ×2 (08:09→20:42)
[2017-12-25] MEDS: SIMVASTATIN 20 MG TAB PO (08:10)
[2017-12-25] MEDS: METOPROLOL SUCC (TopROL XL) 50MG **XL** TAB PO (08:10)
[2017-12-25] MEDS: MONTELUKAST 10 MG TAB PO (08:10)
[2017-12-25] MEDS: MAGNESIUM OXIDE 400 MG TAB (MAG-OX) PO ×3 (08:10→20:42)
[2017-12-25] MEDS: SERTRALINE 100 MG TAB PO (08:10)
[2017-12-25] MEDS: ADVAIR HFA 230/21MCG INHALER INH ×2 (09:41→21:20)
[2017-12-25 11:16] LABS: BEDSIDE GLUCOSE 185 MG/DL (83-110)
[2017-12-25 11:21] LABS: LIPASE 80 U/L (73-393)
[2017-12-25 11:48] LABS: CONTROL LINE HPYORI INT CTR LINE PRESENT; H PYLORI QUALITATIVE IgG NEGATIVE (NEGATIVE)
[2017-12-25] MEDS: NS 1,000 ML IV (11:48)
[2017-12-25] MEDS: PROMETHAZINE INJ 25 MG/ML VIAL (J2550) IV (16:30)
[2017-12-25 18:09] LABS: BEDSIDE GLUCOSE 213 MG/DL (83-110)
[2017-12-25] MEDS: EZETIMIBE 10 MG TAB (ZETIA) PO (20:42)
[2017-12-25 21:43] LABS: BEDSIDE GLUCOSE 170 MG/DL (83-110)
[2017-12-26 06:25] LABS: BASO % 0.6 % (0.0-1.0); EOS # 0.4 10^3/uL (0.0-0.50); EOS % 5.8 % (0.0-3.0); HEMATOCRIT 34.3 % (36.0-47.0); HEMOGLOBIN 10.8 g/dl (12.0-15.5); IMMATURE GRANULOCYTE % 0.4 % (0-3.0); LYMPH # 2.1 10^3/uL (1.5-4.5); LYMPH % 30.8 % (24.0-44.0); MEAN CORPUSCULAR HEMOGLOBIN 27.8 pg (27.0-33.0); MEAN CORPUSCULAR HGB CONC 31.5 g/dl (32.0-36.5); MEAN CORPUSCULAR VOLUME 88.4 fl (80.0-96.0); MONO # 0.6 10^3/uL (0.0-0.8); MONO % 9.2 % (0.0-5.0); NEUTROPHILS # 3.7 10^3/uL (1.8-7.7); NEUTROPHILS % 53.2 % (36.0-66.0); PLATELET COUNT, AUTOMATED 253 10^3/uL (150-450); RED BLOOD COUNT 3.88 10^6/uL (4.00-5.40); RED CELL DISTRIBUTION WIDTH 12.9 % (11.5-14.5); WHITE BLOOD COUNT 6.9 10^3/uL (4.0-10.0)
[2017-12-26 06:38] LABS: ANION GAP 6 MEQ/L (8-16); BLOOD UREA NITROGEN 10 MG/DL (7-18); CALCIUM LEVEL 8.9 MG/DL (8.8-10.2); CARBON DIOXIDE LEVEL 35 MEQ/L (21-32); CHLORIDE LEVEL 102 MEQ/L (98-107); CREATININE FOR GFR 1.09 MG/DL (0.55-1.30); GLOMERULAR FILTRATION RATE 52.7 (>39); GLUCOSE, FASTING 155 MG/DL (70-100); POTASSIUM SERUM 4.1 MEQ/L (3.5-5.1); SODIUM LEVEL 143 MEQ/L (136-145)
[2017-12-26] MEDS: HumaLOG 75/25 MIX INSULIN PER UNIT SC (07:30)
[2017-12-26] MEDS: ADVAIR HFA 230/21MCG INHALER INH ×2 (07:33→20:08)
[2017-12-26] MEDS: SERTRALINE 100 MG TAB PO (08:00)
[2017-12-26] MEDS: PANTOPRAZOLE 40MG TAB (PROTONIX) PO ×2 (08:00→20:01)
[2017-12-26] MEDS: SUCRALFATE 1 GM TAB PO ×4 (08:00→20:01)
[2017-12-26] MEDS: MONTELUKAST 10 MG TAB PO (08:00)
[2017-12-26] MEDS: CYANOCOBALAMIN 500 MCG TAB PO (08:00)
[2017-12-26] MEDS: ASPIRIN 81 MG ENTERIC TAB PO (08:00)
[2017-12-26] MEDS: MAGNESIUM OXIDE 400 MG TAB (MAG-OX) PO ×3 (08:01→20:01)
[2017-12-26] MEDS: SIMVASTATIN 20 MG TAB PO (08:01)
[2017-12-26] MEDS: ISOSORBIDE MON. (IMDUR) 60 MG XR TAB PO (08:04)
[2017-12-26] MEDS: LOSARTAN 25 MG TAB PO ×2 (08:05→20:03)
[2017-12-26] MEDS: METOPROLOL SUCC (TopROL XL) 50MG **XL** TAB PO (08:05)
[2017-12-26] MEDS: ENOXAPARIN 40 MG/0.4 ML SYRINGE (J1650) SC (08:06)
[2017-12-26] MEDS: NORCO, ANEXSIA 5/325MG TABLET (HYDROcodone/ACETAMINOPHEN) PO ×3 (08:18→20:02)
[2017-12-26 12:48] LABS: BEDSIDE GLUCOSE 206 MG/DL (83-110)
[2017-12-26 16:37] LABS: BEDSIDE GLUCOSE 177 MG/DL (83-110)
[2017-12-26 19:57] LABS: BEDSIDE GLUCOSE 214 MG/DL (83-110)
[2017-12-26] MEDS: EZETIMIBE 10 MG TAB (ZETIA) PO (20:01)
[2017-12-27 00:08] LABS: H PYLORI SERUM QUANT IGA <9.0 units (0.0-8.9); H PYLORI SERUM QUANT IGM <9.0 units (0.0-8.9)
[2017-12-27 00:08] LABS: H PYLORI STOOL ANTIGEN Negative (Negative)
[2017-12-27 06:54] LABS: BASO % 0.6 % (0.0-1.0); EOS # 0.4 10^3/uL (0.0-0.50); EOS % 5.7 % (0.0-3.0); HEMATOCRIT 33.5 % (36.0-47.0); HEMOGLOBIN 10.5 g/dl (12.0-15.5); IMMATURE GRANULOCYTE % 0.3 % (0-3.0); LYMPH # 2.1 10^3/uL (1.5-4.5); LYMPH % 31.6 % (24.0-44.0); MEAN CORPUSCULAR HEMOGLOBIN 27.7 pg (27.0-33.0); MEAN CORPUSCULAR HGB CONC 31.3 g/dl (32.0-36.5); MEAN CORPUSCULAR VOLUME 88.4 fl (80.0-96.0); MONO # 0.6 10^3/uL (0.0-0.8); MONO % 8.5 % (0.0-5.0); NEUTROPHILS # 3.5 10^3/uL (1.8-7.7); NEUTROPHILS % 53.3 % (36.0-66.0); PLATELET COUNT, AUTOMATED 258 10^3/uL (150-450); RED BLOOD COUNT 3.79 10^6/uL (4.00-5.40); RED CELL DISTRIBUTION WIDTH 12.7 % (11.5-14.5); WHITE BLOOD COUNT 6.6 10^3/uL (4.0-10.0)
[2017-12-27 07:16] LABS: ALBUMIN/GLOBULIN RATIO 0.81 (1.00-1.93); ALKALINE PHOSPHATASE 57 U/L (45-117); ALT/SGPT 15 U/L (12-78); ANION GAP 5 MEQ/L (8-16); AST/SGOT 21 U/L (7-37); BILIRUBIN,TOTAL 0.3 MG/DL (0.2-1.0); BLOOD UREA NITROGEN 14 MG/DL (7-18); CALCIUM LEVEL 9.1 MG/DL (8.8-10.2); CARBON DIOXIDE LEVEL 35 MEQ/L (21-32); CHLORIDE LEVEL 101 MEQ/L (98-107); CREATININE FOR GFR 1.08 MG/DL (0.55-1.30); GLOMERULAR FILTRATION RATE 53.2 (>39); GLUCOSE, FASTING 144 MG/DL (70-100); POTASSIUM SERUM 4.7 MEQ/L (3.5-5.1); SODIUM LEVEL 141 MEQ/L (136-145); TOTAL PROTEIN 6.7 GM/DL (6.4-8.2)
[2017-12-27] MEDS: HumaLOG 75/25 MIX INSULIN PER UNIT SC (07:30)
[2017-12-27] MEDS: ADVAIR HFA 230/21MCG INHALER INH (07:55)
[2017-12-27] MEDS: LOSARTAN 25 MG TAB PO (08:02)
[2017-12-27] MEDS: ENOXAPARIN 40 MG/0.4 ML SYRINGE (J1650) SC (08:02)
[2017-12-27] MEDS: MAGNESIUM OXIDE 400 MG TAB (MAG-OX) PO (08:03)
[2017-12-27] MEDS: PANTOPRAZOLE 40MG TAB (PROTONIX) PO (08:04)
[2017-12-27] MEDS: ISOSORBIDE MON. (IMDUR) 60 MG XR TAB PO (08:04)
[2017-12-27] MEDS: SERTRALINE 100 MG TAB PO (08:04)
[2017-12-27] MEDS: ASPIRIN 81 MG ENTERIC TAB PO (08:04)
[2017-12-27] MEDS: METOPROLOL SUCC (TopROL XL) 50MG **XL** TAB PO (08:05)
[2017-12-27] MEDS: SUCRALFATE 1 GM TAB PO ×2 (08:05→12:47)
[2017-12-27] MEDS: SIMVASTATIN 20 MG TAB PO (08:05)
[2017-12-27] MEDS: MONTELUKAST 10 MG TAB PO (08:06)
[2017-12-27] MEDS: CYANOCOBALAMIN 500 MCG TAB PO (08:06)
[2017-12-27] MEDS: NORCO, ANEXSIA 5/325MG TABLET (HYDROcodone/ACETAMINOPHEN) PO (11:06)
[2017-12-27 13:28] LABS: BEDSIDE GLUCOSE 191 MG/DL (83-110)
== END 2017-12-27 13:55 | disposition home or self-care (01) | DRG 391 ==
LOC: M MSPAV 12-14 08:45 → M MS5PR 12-19 23:08 → M ED 10:10 → M ED INP 15:44
DX: K29.70 Gastritis, unspecified, without bleeding (principal); K85.90 Acute pancreatitis without necrosis or infection, unspecified; J96.11 Chronic respiratory failure with hypoxia; N17.9 Acute kidney failure, unspecified; I50.30 Unspecified diastolic (congestive) heart failure; K21.9 Gastro-esophageal reflux disease without esophagitis; R19.7 Diarrhea, unspecified; I11.0 Hypertensive heart disease with heart failure; E11.9 Type 2 diabetes mellitus without complications; M79.7 Fibromyalgia; M19.90 Unspecified osteoarthritis, unspecified site; Z79.899 Other long term (current) drug therapy; Z79.82 Long term (current) use of aspirin; Z79.4 Long term (current) use of insulin; Z88.8 Allergy status to other drugs, medicaments and biological substances; Z87.891 Personal history of nicotine dependence; J44.9 Chronic obstructive pulmonary disease, unspecified; F32.9 Major depressive disorder, single episode, unspecified

== ENCOUNTER 2017-12-29 08:03 | Emergency (ER) | payer MEDICARE, MEDICAID ==
[2017-12-29] MEDS: PANTOPRAZOLE 40MG INJ (PROTONIX) (C9113) IV (09:22)
[2017-12-29] MEDS: SUCRALFATE 1 GM TAB PO (09:22)
[2017-12-29 09:38] LABS: BASO % 0.4 % (0.0-1.0); EOS # 0.3 10^3/uL (0.0-0.50); EOS % 3.4 % (0.0-3.0); HEMATOCRIT 34.9 % (36.0-47.0); HEMOGLOBIN 10.9 g/dl (12.0-15.5); IMMATURE GRANULOCYTE % 0.4 % (0-3.0); LYMPH # 1.7 10^3/uL (1.5-4.5); LYMPH % 22.8 % (24.0-44.0); MEAN CORPUSCULAR HEMOGLOBIN 27.3 pg (27.0-33.0); MEAN CORPUSCULAR HGB CONC 31.2 g/dl (32.0-36.5); MEAN CORPUSCULAR VOLUME 87.5 fl (80.0-96.0); MONO # 0.6 10^3/uL (0.0-0.8); MONO % 7.5 % (0.0-5.0); NEUTROPHILS % 65.5 % (36.0-66.0); PLATELET COUNT, AUTOMATED 254 10^3/uL (150-450); RED BLOOD COUNT 3.99 10^6/uL (4.00-5.40); RED CELL DISTRIBUTION WIDTH 12.8 % (11.5-14.5); WHITE BLOOD COUNT 7.6 10^3/uL (4.0-10.0)
[2017-12-29] MEDS: GI COCKTAIL 50ML BTL(HYOSCYAMINE/MAALOX/LIDOCAINE VISCOUS)(1:3:1) PO (09:47)
[2017-12-29] MEDS: ONDANSETRON 4MG/2ML VIAL (J2405) IV (09:47)
[2017-12-29 10:35] LABS: ALBUMIN 3.3 GM/DL (3.2-5.2); ALBUMIN/GLOBULIN RATIO 0.87 (1.00-1.93); ALKALINE PHOSPHATASE 62 U/L (45-117); ALT/SGPT 15 U/L (12-78); ANION GAP 5 MEQ/L (8-16); AST/SGOT 19 U/L (7-37); BILIRUBIN,DIRECT 0.1 MG/DL (0.0-0.2); BILIRUBIN,TOTAL 0.4 MG/DL (0.2-1.0); BLOOD UREA NITROGEN 16 MG/DL (7-18); CALCIUM LEVEL 8.9 MG/DL (8.8-10.2); CARBON DIOXIDE LEVEL 32 MEQ/L (21-32); CHLORIDE LEVEL 103 MEQ/L (98-107); CREATININE FOR GFR 1.15 MG/DL (0.55-1.30); GLOMERULAR FILTRATION RATE 49.5 (>39); GLUCOSE, FASTING 179 MG/DL (70-100); POTASSIUM SERUM 4.5 MEQ/L (3.5-5.1); SODIUM LEVEL 140 MEQ/L (136-145); TOTAL PROTEIN 7.1 GM/DL (6.4-8.2)
== END 2017-12-29 11:41 | disposition home or self-care (01) ==
LOC: M ED 08:03
DX: R10.9 Unspecified abdominal pain (principal); G89.4 Chronic pain syndrome; E11.9 Type 2 diabetes mellitus without complications; I11.0 Hypertensive heart disease with heart failure; I50.9 Heart failure, unspecified; K21.9 Gastro-esophageal reflux disease without esophagitis; M79.7 Fibromyalgia; M19.90 Unspecified osteoarthritis, unspecified site; Z96.652 Presence of left artificial knee joint; Z87.891 Personal history of nicotine dependence; Z88.8 Allergy status to other drugs, medicaments and biological substances; Z79.899 Other long term (current) drug therapy; Z79.84 Long term (current) use of oral hypoglycemic drugs; Z79.4 Long term (current) use of insulin; Z79.51 Long term (current) use of inhaled steroids
CPT/HCPCS: C9113

== ENCOUNTER 2018-01-03 09:22 | Emergency (ER) | payer MEDICARE, MEDICAID ==
[2018-01-03] MEDS: NS 500 ML IV (10:04)
[2018-01-03] MEDS: MORPHINE 4 MG/ML 1ML VIAL/SYRINGE (J2270) IV ×2 (10:04→11:05)
[2018-01-03] MEDS: METOCLOPRAMIDE INJ 10MG/2ML VIAL (J2765) IV (10:04)
[2018-01-03 10:17] LABS: BASO # 0.1 10^3/uL (0.0-0.2); BASO % 0.6 % (0.0-1.0); EOS # 0.1 10^3/uL (0.0-0.50); EOS % 1.6 % (0.0-3.0); HEMATOCRIT 36.4 % (36.0-47.0); HEMOGLOBIN 11.9 g/dl (12.0-15.5); IMMATURE GRANULOCYTE % 0.5 % (0-3.0); LYMPH # 1.8 10^3/uL (1.5-4.5); MEAN CORPUSCULAR HEMOGLOBIN 28.1 pg (27.0-33.0); MEAN CORPUSCULAR HGB CONC 32.7 g/dl (32.0-36.5); MEAN CORPUSCULAR VOLUME 85.8 fl (80.0-96.0); MONO # 0.5 10^3/uL (0.0-0.8); MONO % 6.3 % (0.0-5.0); PLATELET COUNT, AUTOMATED 271 10^3/uL (150-450); RED BLOOD COUNT 4.24 10^6/uL (4.00-5.40); RED CELL DISTRIBUTION WIDTH 12.7 % (11.5-14.5); WHITE BLOOD COUNT 8.5 10^3/uL (4.0-10.0)
[2018-01-03 10:39] LABS: ALBUMIN 3.8 GM/DL (3.2-5.2); ALBUMIN/GLOBULIN RATIO 0.97 (1.00-1.93); ALKALINE PHOSPHATASE 53 U/L (45-117); ALT/SGPT 15 U/L (12-78); ANION GAP 9 MEQ/L (8-16); AST/SGOT 20 U/L (7-37); BILIRUBIN,DIRECT 0.2 MG/DL (0.0-0.2); BILIRUBIN,TOTAL 0.5 MG/DL (0.2-1.0); BLOOD UREA NITROGEN 16 MG/DL (7-18); CALCIUM LEVEL 9.1 MG/DL (8.8-10.2); CARBON DIOXIDE LEVEL 30 MEQ/L (21-32); CHLORIDE LEVEL 101 MEQ/L (98-107); CPK CREATINE PHOSPHOKINASE 45 U/L (26-192); CREATININE FOR GFR 1.34 MG/DL (0.55-1.30); GLOMERULAR FILTRATION RATE 41.5 (>39); GLUCOSE, FASTING 148 MG/DL (70-100); LIPASE 81 U/L (73-393); POTASSIUM SERUM 3.9 MEQ/L (3.5-5.1); SODIUM LEVEL 140 MEQ/L (136-145); TOTAL PROTEIN 7.7 GM/DL (6.4-8.2); TROPONIN I < 0.02 NG/ML (< 0.10)
[2018-01-03 10:40] LABS: CK-MB VALUE MASS 1.3 NG/ML (<3.6); MB/CK RELATIVE INDEX 2.88 (< OR =4)
[2018-01-03] MEDS ORDERED: ISOVUE-370 76% 100ML VIAL (Q9967) As Ordered (10:40)
[2018-01-03] MEDS: ANEXSIA, NORCO 7.5MG/325MG TABLET(HYDROCODONE/APAP) PO (11:51)
== END 2018-01-03 12:54 | disposition home or self-care (01) ==
LOC: M ED 09:22
DX: G89.29 Other chronic pain (principal); R10.9 Unspecified abdominal pain; R11.2 Nausea with vomiting, unspecified; I11.0 Hypertensive heart disease with heart failure; E11.9 Type 2 diabetes mellitus without complications; I50.9 Heart failure, unspecified; J44.9 Chronic obstructive pulmonary disease, unspecified; I25.2 Old myocardial infarction; M79.7 Fibromyalgia; F33.9 Major depressive disorder, recurrent, unspecified; K21.9 Gastro-esophageal reflux disease without esophagitis; Z79.899 Other long term (current) drug therapy; Z79.82 Long term (current) use of aspirin; Z79.51 Long term (current) use of inhaled steroids; Z79.84 Long term (current) use of oral hypoglycemic drugs; Z88.8 Allergy status to other drugs, medicaments and biological substances; Z87.891 Personal history of nicotine dependence
CPT/HCPCS: J2270

== ENCOUNTER → 2018-02-24 | Outpatient (CLI) | payer MEDICARE | LOC: M WHC 10:16 | DX: Z12.31 Encounter for screening mammogram for malignant neoplasm of breast (principal); M85.852 Other specified disorders of bone density and structure, left thigh; M85.851 Other specified disorders of bone density and structure, right thigh; M85.88 Other specified disorders of bone density and structure, other site | CPT/HCPCS: 77067 ==

== ENCOUNTER 2019-08-18 10:55 | Inpatient (IN) | payer MEDICARE ==
[~2019-08-18] VITALS: Ht 160 cm; Wt 86.8 kg
[~2019-08-18 10:55] MED LIST changes: +ACET500T15 PO; -ACET50TAOT PO; +ADV250INH INH; +AMLO5TAB6 PO; +ASPI-1 PO; -ASPI1TAB PO; +ASPI81TA26 PO; +ATRO0.063 INH; +COZA50TA PO; +CYAN100049 PO; -CYCL5TA PO; +CYCL5TAB5 PO; -DRIS50002 PO; +DRIS50003 PO; -GABA-282 PO; +GABA-843 PO; -GLIM2TAB PO; +GLIM2TAB4 PO; +GLIP2.5T6 PO; +HYDR-3716 PO; +HYDR-4514 PO; +KLOR20TA42 PO; -LASI20TA PO; +LASI20TA3 PO; +LORA-243 PO; -LOSA50TA20 PO; +LOSA50TA88 PO; +MONT10TA4 PO; +NITR100C2 PO; -NORC1TAB4 PO; +NORC1TAB7 PO; +PANT40TA3 PO; -POTA20TA PO; +PRED10TA2 PO; +REGL10TA6 PO; +SUCR1TA PO; +TIZA4CAP PO; -TIZA4CAP3 PO; +TORS10TA3 PO; -VITA10002 PO; +ZETI10TA16 PO; -ZETI10TA30 PO; -ZOFR20TA PO; +ZOFR4TAB16 PO
[2019-08-18 13:22] VITALS: BP 143/90
[2019-08-18] MEDS ORDERED: ALBUTEROL SULFATE 2.5 MG/0.5 ML INH NEB SOLN NEB PRN (13:30)
[2019-08-18] MEDS: PANTOPRAZOLE SODIUM 40 MG in D5W 50 ML IV SCH ×3 (13:48→23:47)
[2019-08-18 14:09] LABS: HEMATOCRIT 37.6 % (36.0-47.0); HEMOGLOBIN 11.8 g/dl (12.0-15.5); MEAN CORPUSCULAR HEMOGLOBIN 26.9 pg (27.0-33.0); MEAN CORPUSCULAR HGB CONC 31.4 g/dl (32.0-36.5); MEAN CORPUSCULAR VOLUME 85.6 fl (80.0-96.0); PLATELET COUNT, AUTOMATED 173 10^3/uL (150-450); RED BLOOD COUNT 4.39 10^6/uL (4.00-5.40); WHITE BLOOD COUNT 5.2 10^3/uL (4.0-10.0)
[2019-08-18] MEDS ORDERED: KETOROLAC 30 MG/ML 1ML VIAL IV ONE (14:15)
--- NOTE | 2019-08-18 14:37 | HPEPDOC ---
General Date of Admission Aug 18, 2019 at 13:15 Date of Service: Aug 18, 2019 Chief Complaint The patient is a 74-year-old female admitted with a reason for visit of Gastric/Duodenal Ulcer. Source: Patient History of Present Illness 74 year old female has been transferred from [facility] for persistent abdominal pain, nausea, poor appetite for evaluation by Gastroenterology and possible EGD as work up in outside hospital with Upper GI series and CT scan showing diffuse gastritis and possible duodenal ulcer. Today patient now complains of pain dull aching in type located int he right lumber region and right flank. She also complains of pain in the right lower chest and right back. Intensity of the pain is about 5/10. She also complains of persistent nausea, no diarrhea or constipation, no vomiting. She also complains of poor appetite. She has been admitted for work up of abdominal pain and possible peptic ulcer disease. Tests of outside hospital showed a dirty UA with culture frowing Ecoli 50K CPU. Patient denies any dysuria, pain or frequency of urination. Home Medications Scheduled Aspirin (Aspirin EC) 81 Mg Tab, 81 MG PO DAILY, (Reported) Calcium Carbonate (Calcium) 500 Mg Tablet, 500 MG PO BID, (Reported) Cyanocobalamin (Vitamin B-12) (Vitamin B-12) 1,000 Mcg Tab, 1,000 MCG PO DAILY, (Reported) Enoxaparin Sodium (Lovenox) 30 Mg/0.3 Ml Syringe, 30 MG SC QHS, (Reported) STARTED AT [facility] Ezetimibe (Zetia) 10 Mg Tab, 10 MG PO QHS, (Reported) Insulin Detemir (Levemir Flextouch) 100 Unit/1 Ml Insuln.pen, 40 UNITS SQ DAILY, (Reported) Insulin Lispro (Humalog Kwikpen U-100) 100 Unit/1 Ml Insuln.pen, 1 DOSE SQ AC, (Reported) Ipratropium/Albuterol Sulfate (Iprat-Albut 0.5-3(2.5) mg/3 ml) 3 Ml Ampul.neb, 1 RIO INH QID, (Reported) STARTED AT [facility] Levofloxacin (Levofloxacin 500 mg/100 ml-D5w) 500 Mg/100 Ml Piggyback, 500 MG IV DAILY, (Reported) STARTED AT [facility] Losartan Potassium (Losartan Potassium) 50 Mg Tablet, 50 MG PO DAILY, (Reported) RECEIVED VALSARTAN 160MG AT [facility] Metformin HCl (Metformin HCl) 500 Mg Tab, 500 MG PO BID, (Reported) Metoprolol Succinate (Toprol Xl) 50 Mg Tab, 50 MG PO DAILY, (Reported) Montelukast Sodium (Montelukast Sodium) 10 Mg Tab, 10 MG PO DAILY, (Reported) Pantoprazole Sodium (Protonix IV) 40 Mg Vial, 40 MG IV ASDIRECTED, (Reported) CONTINUOUS IV STARTED AT [facility] Potassium Chloride (Potassium Chloride) 10 Meq Tablet.er, 10 MEQ PO TID, (Reported) STARTED AT [facility] Sertraline HCl (Sertraline HCl) 100 Mg Tablet, 100 MG PO QHS, (Reported) Simvastatin (Zocor) 20 Mg Tab, 20 MG PO QHS, (Reported) RECEIVED LIPITOR 10MG AT [facility] Sucralfate (Sucralfate) 1 Gm Tablet, 1 GM PO BID, (Reported) STARTED AT [facility] Scheduled PRN Albuterol Sulfate (Proair Hfa) 108 Mcg/Act Aer, 2 PUFF INH QID PRN for SHORTNESS OF BREATH, (Reported) Fluticasone Propionate (Flonase Allergy Relief) 50 Mcg/Act Spr, 2 SPRAYS NA DAILY PRN for ALLERGIES, (Reported) Ipratropium [place] (Atrovent Hfa) 17 Mcg/Act Aer, 1 PUFF INH BID PRN for SHORTNESS OF BREATH, (Reported) Nitroglycerin (Nitrostat) 0.4 Mg Subl, 0.4 MG SL NITRO PRN for CHEST PAIN, (Reported) Nystatin (Nystatin Powder) 100,000 Unit/Gm Pow, 1 DOSE TOP BID PRN for RASH/ITCHING, (Reported) APPLY TO GROIN AND UNDER BREASTS Promethazine HCl (Promethazine HCl) 25 Mg/1 Ml Vial, 12.5 MG IV Q6H PRN for NAUSEA OR VOMITING, (Reported) STARTED AT [facility] Allergies Coded Allergies: ibuprofen (Verified Adverse Reaction, Intermediate, MAKES HER CRAZY, 08/18/19) prednisone (Verified Adverse Reaction, Intermediate, MAKES HER ANGRY, 08/18/19) Past Medical History Medical History COPD Moderate Pulmonary hypertesnion Mild Mitral regurgitation HTN H/o Bilateral nephrolithiasis with h/o ureteral stones and lithotripsyof left renal stone in 2016 Diastolic CHF Chronic hypoxic respiratory failure DM2 OA / Fibromyalgia DLP Chronic urinary incontinence GERD Benign esophageal stenosis s/p dilatation in 2018 Hiatal hernia MINI , history of urinary incontinence, history of chronic back history of depression. Surgical History Hysterectomy Ventral hernia repair. H/o cystoscopy ureteral stents Lithotripsy Family History Significant Family History: No pertinent family hx (discussed with pateint) Social History * Smoker: former Smoker Alcohol: Denies Drugs: denies A-FIB/CHADSVASC A-FIB History Current/History of A-Fib/PAF?: No Review of Systems Constitutional: Denies: Chills, Fever, Night Sweats Eyes: Denies: Pain, Vision change ENT: Denies: Head Aches, Ear Pain, Dysphagia Skin: Denies: Rash, Lesions, Breakdown Pulmonary: Denies: Dyspnea, Cough Cardiovascular: Denies: Chest Pain, Palpitations, Orthopnea, Paroxysmal Noc. Dyspnea, Lt Headedness Gastrointestinal: Reports: Nausea, Abdominal Pain; Denies: Vomiting, Diarrhea, Constipation, Melena, Hematochezia Genitourinary: Denies: Dysuria, Frequency, Incontinence, Retention Hematologic: Denies: Bruising, Bleeding Excessively Musculoskeletal: Reports: Back Pain, Muscle Pain; Denies: Neck Pain Neurological: Denies: Weakness, Numbness, Change in speech, Confusion Physical Examination General Exam: Positive: Alert, Cooperative, No Acute Distress Eye Exam: Positive: PERRLA, Conjunctiva & lids normal, EOMI; Negative: Sclera icteric ENT Exam: Positive: Atraumatic, Mucous membr. moist/pink, Pharynx Normal Neck Exam: Positive: Supple; Negative: JVD, thyromegaly Chest Exam: Positive: Clear to auscultation, Normal air movement Heart Exam: Positive: Rate Normal, Regular Rhythm, Normal S1, Normal S2, Murmurs (systolic murmur present); Negative: Rubs Abdomen Exam: Positive: Normal bowel sounds, Soft, Tenderness (in the right lumber region and right flank), Other (obese, midline scar from umbilicus to above the symphysis pubis. ) Extremity Exam: Negative: Clubbing, Cyanosis, Edema Skin Exam: Positive: Nl turgor and temperature; Negative: Breakdown, Lesion Psych Exam: Positive: Memory Intact, Oriented x 3 Vital Signs Vital Signs Date Time Temp Pulse Resp B/P (MAP) Pulse Ox O2 Delivery O2 Flow Rate FiO2 08/18/19 13:22 97.8 87 17 143/90 (107) 98 Room Air Laboratory Data Labs 24H Laboratory Tests 2 08/18/19 14:00: Nucleated Red Blood Cells % (auto) 0.0 CBC/BMP Laboratory Tests 08/18/19 14:00 Assessment/Plan 74 year old female has been transferred from [facility] for persistent abdominal pain, nausea, poor appetite for evaluation by Gastroenterology and possible EGD as work up in outside hospital with Upper GI series and CT scan showing diffuse gastritis and possible duodenal ulcer. Today patient now complains of pain dull aching in type located int he right lumber region and right flank. She also complains of pain in the right lower chest and right back. Intensity of the pain is about 5/10. She also complains of persistent nausea, no diarrhea or constipation, no vomiting. She also complains of poor appetite. She has been admitted for work up of abdominal pain and possible peptic ulcer disease. Abdominal pain rule out peptic ulcer disease planned for EGD. continue pantoprazole. clear liquids. Diffuse musculoskeletal pain all over the abdominal wall mostly int he right lumber region , back , chest wall has h/o chronic abdominal pain before felt to be musculoskeletal, fibromyalgia. will give 1 dose of toradol, lidoderm patch. GERD/Hiatal hernia? esophageal stricture continue PPI COPD with chronic hypoxic respiratory failure continue duonebs. oxygen UTI Ecoli in culture will give ceftriaxone Diabetes hold metformin continue levemir and lispro with hold parameters. Hypertension continue losartan and metoprolol Hyperlipidemia continue statin and zetia Depression continue sertraline. Plan / VTE VTE Prophylaxis Ordered?: Yes EVELIO LYNCH MD Aug 18, 2019 14:37
[2019-08-18 14:38] LABS: ALT/SGPT 22 U/L (12-78); BILIRUBIN,TOTAL 0.6 MG/DL (0.2-1.0); BLOOD UREA NITROGEN 6 MG/DL (7-18); CALCIUM LEVEL 8.8 MG/DL (8.8-10.2); CARBON DIOXIDE LEVEL 30 MEQ/L (21-32); CHLORIDE LEVEL 100 MEQ/L (98-107); CREATININE FOR GFR 0.78 MG/DL (0.55-1.30); GLOMERULAR FILTRATION RATE > 60.0 (>39); GLUCOSE, FASTING 152 MG/DL (70-100); POTASSIUM SERUM 4.2 MEQ/L (3.5-5.1); SODIUM LEVEL 137 MEQ/L (136-145); TOTAL PROTEIN 6.3 GM/DL (6.4-8.2)
[2019-08-18] MEDS: LIDOCAINE 5% (LIDODERM) PATCH TD SCH (14:53)
[2019-08-18] MEDS ORDERED: OYST1TAB PO (17:04)
[2019-08-18] MEDS ORDERED: LOVE1INJ2 SC (17:04)
[2019-08-18] MEDS ORDERED: [UNRECOGNIZED DRUG - CODE] IV (17:04)
[2019-08-18] MEDS ORDERED: HUMA100I5 SQ (17:04)
[2019-08-18] MEDS ORDERED: IPRA0.00 INH (17:04)
[2019-08-18] MEDS ORDERED: POTA10TA14 PO (17:04)
[2019-08-18] MEDS ORDERED: SUCR1TAB56 PO (17:04)
[2019-08-18] MEDS ORDERED: LOSA50TA88 PO (17:04)
[2019-08-18] MEDS ORDERED: SERT-138 PO (17:04)
[2019-08-18] MEDS ORDERED: LEVE1INJ5 SQ (17:04)
[2019-08-18] MEDS ORDERED: PROT40IN4 IV (17:04)
[2019-08-18] MEDS ORDERED: PROM25AM IV (17:04)
--- NOTE | 2019-08-18 17:26 | REP ---
Clinical: Right-sided pain. Technique: Supine views of the abdomen and pelvis. Findings: The bowel gas pattern is relatively nonspecific. Oral contrast material and scattered fecal material identified throughout the colon. Evidence for prior surgical procedures of the abdomen and pelvis. No organomegaly. No significant foreign body. Skeletal structures demonstrate age-related changes. Impression: Relatively nonspecific abdominal radiograph. Oral contrast material outlines a relatively normal colon. Electronically Signed by J Carlos Hernandez MD 08/18/2019 05:18 P
--- NOTE | 2019-08-18 18:01 | CR.PDOC ---
General Date of Consultation: Aug 18, 2019 Referring Provider: EVELIO CRAWFORD MD Attending Physician: DEXTER LIMON MD Consultation Primary physician/ hospitalist: -Dr. Crawford Reason for consult: -Abdominal pain and suspected duodenal ulcer in CT scan HPI: 74-year-old female patient with HTN, DM type II, COPD, moderate pulmonary hypertension, mild mitral regurgitation, diastolic CHF, was transferred from [facility] for persistent abdominal pain and abnormal CT scan suggestive of duodenal ulcer. Patient reports having right-sided and upper abdominal pain, moderate in intensity, associated with nausea and poor appetite. Patient denies any OTC pain medications but has been on aspirin 81 MG. Patient denies any other active GI symptoms Pertinent negative GI symptoms: Patient denies fever, sick contacts, recent travel, vomiting, diarrhea, early satiety or unintentional weight loss. No history of hematemesis, melena or hematochezia. Patient reports regular bowel movements. Review of Systems: GI: as stated above CVS: No chest pain, No palpitations, No leg swelling. 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 Skin: No rash : No hematuria, No burning sensation of the urine ENT: No ear discharge/ pain, No dysphagia. Eyes: No photophobia. Jaundice Home medications: reviewed. Antithrombotic agents: -Aspirin 81 MG Medical h/o: As above. Surgical h/o: None on abdomen. Social h/o: Alcohol: -. Denies, smoking: Former smoker, IVDA/ drugs: Denies. Family h/o of GI cancers - None Prior Endoscopies: --- EGD: -Done for dysphagia [place] [address] Linares -- noted to have benign intrinsic distal esophageal stricture which was dilated. Biopsies were negative for any dysplasia or Bonner's, --- Colonoscopy: -None in [facility] Prior GI evaluations: -Patient used to follow with Dr. Linares Exam: Vitals: reviewed General: Alert and oriented x 3, not in distress HEENT: NO pallor, no icterus. Normal oropharynx, NO cervical lymph nodes. Chest: symmetric with bilateral clear air entry, CVS: S1, S2 heard, normal, no murmurs . Abdomen: non-distended, no surgical scars, soft, non-tender, no palpable masses, normal bowel sounds heard. Rectal exam: Patient refused / Deferred at this time in view of scheduled colonoscopy. Extremities: no pedal edema, pulses palpable. 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 Moves all extremities Skin: no rash. Labs: reviewed. Stable hemoglobin and hematocrit from baseline Impression: -Recently worsening epigastric abdominal pain and right upper quadrant pain, associated with nausea, abdominal imaging showing duodenal ulcer -- needs further evaluation. Likely PUD. Recommendations: - Patient educated about the test results, possible differential diagnoses and All questions answered. - NPO/ clear liquid diet for now. - Continue IV protonix- 40 mg IV twice daily. - Monitor hemoglobin and hematocrit. - Will schedule for EGD tomorrow for further evaluation. - The procedure, indications, risks (bleeding, perforation, infection, hypotension, respiratory depression, allergy, need for endotracheal intubation, surgery, colostomy, cardiac arrest, even ), benefits, limitations (e.g., missing a lesion), and all other alternatives (including no intervention) were explained to the patient who understood and agreed for the procedure. - Follow operative note for post procedure recommendations. Plan of care discussed with patient and primary team. Patient verbalized understanding and agreed with the plan. Vital Signs/I&O Vital Signs Date Time Temp Pulse Resp B/P (MAP) Pulse Ox O2 Delivery O2 Flow Rate FiO2 08/18/19 13:22 97.8 87 17 143/90 (107) 98 Room Air Laboratory Data Labs 24H Laboratory Tests 2 08/18/19 14:00: Nucleated Red Blood Cells % (auto) 0.0, Anion Gap 7L, Glomerular Filtration Rate > 60.0, Calcium Level 8.8, Total Bilirubin 0.6, Aspartate Amino Transf (AST/SGOT) 28, Alanine Aminotransferase (ALT/SGPT) 22, Alkaline Phosphatase 72, Total Protein 6.3L, Albumin 3.0L, Albumin/Globulin Ratio 0.91L CBC/BMP Laboratory Tests 08/18/19 14:00 Allergies Coded Allergies: ibuprofen (Verified Adverse Reaction, Intermediate, MAKES HER CRAZY, 08/18/19) prednisone (Verified Adverse Reaction, Intermediate, MAKES HER ANGRY, 08/18/19) Home Medications Scheduled Aspirin (Aspirin EC) 81 Mg Tab, 81 MG PO DAILY, (Reported) Calcium Carbonate (Calcium) 500 Mg Tablet, 500 MG PO BID, (Reported) Cyanocobalamin (Vitamin B-12) (Vitamin B-12) 1,000 Mcg Tab, 1,000 MCG PO DAILY, (Reported) Enoxaparin Sodium (Lovenox) 30 Mg/0.3 Ml Syringe, 30 MG SC QHS, (Reported) STARTED AT [facility] Ezetimibe (Zetia) 10 Mg Tab, 10 MG PO QHS, (Reported) Insulin Detemir (Levemir Flextouch) 100 Unit/1 Ml Insuln.pen, 40 UNITS SQ DAILY, (Reported) Insulin Lispro (Humalog Kwikpen U-100) 100 Unit/1 Ml Insuln.pen, 1 DOSE SQ AC, (Reported) Ipratropium/Albuterol Sulfate (Iprat-Albut 0.5-3(2.5) mg/3 ml) 3 Ml Ampul.neb, 1 RIO INH QID, (Reported) STARTED AT [facility] Levofloxacin (Levofloxacin 500 mg/100 ml-D5w) 500 Mg/100 Ml Piggyback, 500 MG IV DAILY, (Reported) STARTED AT [facility] Losartan Potassium (Losartan Potassium) 50 Mg Tablet, 50 MG PO DAILY, (Reported) RECEIVED VALSARTAN 160MG AT [facility] Metformin HCl (Metformin HCl) 500 Mg Tab, 500 MG PO BID, (Reported) Metoprolol Succinate (Toprol Xl) 50 Mg Tab, 50 MG PO DAILY, (Reported) Montelukast Sodium (Montelukast Sodium) 10 Mg Tab, 10 MG PO DAILY, (Reported) Pantoprazole Sodium (Protonix IV) 40 Mg Vial, 40 MG IV ASDIRECTED, (Reported) CONTINUOUS IV STARTED AT [facility] Potassium Chloride (Potassium Chloride) 10 Meq Tablet.er, 10 MEQ PO TID, (Reported) STARTED AT [facility] Sertraline HCl (Sertraline HCl) 100 Mg Tablet, 100 MG PO QHS, (Reported) Simvastatin (Zocor) 20 Mg Tab, 20 MG PO QHS, (Reported) RECEIVED LIPITOR 10MG AT [facility] Sucralfate (Sucralfate) 1 Gm Tablet, 1 GM PO BID, (Reported) STARTED AT [facility] Scheduled PRN Albuterol Sulfate (Proair Hfa) 108 Mcg/Act Aer, 2 PUFF INH QID PRN for SHORTNESS OF BREATH, (Reported) Fluticasone Propionate (Flonase Allergy Relief) 50 Mcg/Act Spr, 2 SPRAYS NA DAILY PRN for ALLERGIES, (Reported) Ipratropium [place] (Atrovent Hfa) 17 Mcg/Act Aer, 1 PUFF INH BID PRN for SHORTNESS OF BREATH, (Reported) Nitroglycerin (Nitrostat) 0.4 Mg Subl, 0.4 MG SL NITRO PRN for CHEST PAIN, (Reported) Nystatin (Nystatin Powder) 100,000 Unit/Gm Pow, 1 DOSE TOP BID PRN for RASH/ITCHING, (Reported) APPLY TO GROIN AND UNDER BREASTS Promethazine HCl (Promethazine HCl) 25 Mg/1 Ml Vial, 12.5 MG IV Q6H PRN for NAUSEA OR VOMITING, (Reported) STARTED AT [facility],DEXTER Rothman MD Aug 18, 2019 18:01
[2019-08-18] MEDS: **NOTE PATIENT COMMENT** MISC XX SCH (20:58)
[2019-08-18 22:00] VITALS: BP 153/83
[2019-08-19] VITALS (7 sets, daily range): BP systolic 130–147; BP diastolic 68–89
[2019-08-19] MEDS: PANTOPRAZOLE SODIUM 40 MG in D5W 50 ML IV SCH ×2 (04:25→09:30)
[2019-08-19] MEDS ORDERED: DEXTROSE 50% 50 ML SYRINGE IV PRN (07:30)
[2019-08-19] MEDS ORDERED: GLUCAGON INJ 1MG VIAL SC PRN (07:30)
[2019-08-19] MEDS ORDERED: GLUCOSE 4GM CHEW TABLET PO PRN (07:30)
[2019-08-19 07:38] LABS: BASO # 0.1 10^3/uL (0.0-0.2); EOS # 0.3 10^3/uL (0.0-0.5); EOS % 4.8 % (0.0-3.0); HEMATOCRIT 43.7 % (36.0-47.0); HEMOGLOBIN 13.6 g/dl (12.0-15.5); LYMPH # 1.9 10^3/uL (1.5-5.0); LYMPH % 35.7 % (24.0-44.0); MEAN CORPUSCULAR HEMOGLOBIN 26.9 pg (27.0-33.0); MEAN CORPUSCULAR HGB CONC 31.1 g/dl (32.0-36.5); MEAN CORPUSCULAR VOLUME 86.4 fl (80.0-96.0); MONO # 0.5 10^3/uL (0.0-0.8); MONO % 10.2 % (0.0-5.0); NEUTROPHILS # 2.5 10^3/uL (1.5-8.5); NEUTROPHILS % 47.9 % (36.0-66.0); PLATELET COUNT, AUTOMATED 188 10^3/uL (150-450); RED BLOOD COUNT 5.06 10^6/uL (4.00-5.40); WHITE BLOOD COUNT 5.2 10^3/uL (4.0-10.0)
[2019-08-19] MEDS: IPRATROPIUM 0.5MG/ALBUTEROL 2.5MG INH SOL UD 3ML (DUONEB)(J7620) NEB SCH ×4 (07:45→19:35)
[2019-08-19] MEDS: LEVEMIR (INSULIN DETEMIR) 1 UNITS/0.01ML SC SCH (08:18)
[2019-08-19] MEDS: LIDOCAINE 5% (LIDODERM) PATCH TD SCH (08:18)
[2019-08-19] MEDS: ENOXAPARIN 40MG/0.4ML SYRINGE (J1650 PER 10MG) SC SCH (08:18)
[2019-08-19 08:19] LABS: BLOOD UREA NITROGEN 4 MG/DL (7-18); CALCIUM LEVEL 8.8 MG/DL (8.8-10.2); CARBON DIOXIDE LEVEL 32 MEQ/L (21-32); CHLORIDE LEVEL 101 MEQ/L (98-107); CREATININE FOR GFR 0.74 MG/DL (0.55-1.30); GLOMERULAR FILTRATION RATE > 60.0 (>39); GLUCOSE, FASTING 129 MG/DL (70-100); POTASSIUM SERUM 3.8 MEQ/L (3.5-5.1); SODIUM LEVEL 137 MEQ/L (136-145)
[2019-08-19] MEDS: HumaLOG INSULIN (NovoLOG) PER UNIT SC SCH ×3 (08:19→17:30)
[2019-08-19] MEDS: MONTELUKAST 10 MG TAB PO SCH (08:19)
[2019-08-19] MEDS: LOSARTAN 50 MG TAB PO SCH (08:21)
[2019-08-19] MEDS: METOPROLOL SUCC (TopROL XL) 50MG **XL** TAB PO SCH (08:22)
--- NOTE | 2019-08-19 09:04 | IPNPDOC ---
Subjective Date Seen The patient was seen on 08/19/19. Subjective Chief Complaint/HPI Continues to complain of abdominal pain now more in the right upper quadrant and also right back ribs and right lower back. Seems like she has diffuse musculoskeletal pain. Objective Physical Examination General Exam: Positive: Alert, Cooperative, No Acute Distress Eye Exam: Positive: PERRLA, Conjunctiva & lids normal, EOMI; Negative: Sclera icteric ENT Exam: Positive: Atraumatic, Mucous membr. moist/pink, Pharynx Normal Neck Exam: Positive: Supple; Negative: JVD, thyromegaly Chest Exam: Positive: Clear to auscultation, Normal air movement Heart Exam: Positive: Rate Normal, Regular Rhythm, Normal S1, Normal S2, Murmurs (systolic murmur present); Negative: Rubs Abdomen Exam: Positive: Normal bowel sounds, Soft, Tenderness (in the right lumber region and right flank), Other (obese, midline scar from umbilicus to above the symphysis pubis. ) Extremity Exam: Negative: Clubbing, Cyanosis, Edema Skin Exam: Positive: Nl turgor and temperature; Negative: Breakdown, Lesion Psych Exam: Positive: Memory Intact, Oriented x 3 Assessment /Plan Assessment 74 year old female has been transferred from [facility] for persistent abdominal pain, nausea, poor appetite for evaluation by Gastroenterology and possible EGD as work up in outside hospital with Upper GI series and CT scan showing diffuse gastritis and possible duodenal ulcer. Today patient now complains of pain dull aching in type located int he right lumber region and right flank. She also complains of pain in the right lower chest and right back. Intensity of the pain is about 5/10. She also complains of persistent nausea, no diarrhea or constipation, no vomiting. She also complains of poor appetite. She has been admitted for work up of abdominal pain and possible pept[place] [facility] [place] Abdominal pain rule out peptic ulcer disease planned for EGD. continue pantoprazole. clear liquids. Diffuse musculoskeletal pain all over the abdominal wall mostly int he right lumber region , back , chest wall has h/o chronic abdominal pain before felt to be musculoskeletal, fibromyalgia. will give 1 dose of toradol, lidoderm patch. GERD/Hiatal hernia? esophageal stricture continue PPI COPD with chronic hypoxic respiratory failure continue duonebs. oxygen UTI Ecoli in culture will give ceftriaxone Diabetes hold metformin continue levemir and lispro with hold parameters. Hypertension continue losartan and metoprolol Hyperlipidemia continue statin and zetia Depression continue sertraline. Plan/VTE VTE Prophylaxis Ordered?: Yes VS, I&O, 24H, Fishbone Vital Signs/I&O Vital Signs Date Time Temp Pulse Resp B/P (MAP) Pulse Ox O2 Delivery O2 Flow Rate FiO2 08/19/19 08:22 69 08/19/19 08:21 140/89 08/19/19 06:00 98.6 20 96 08/18/19 13:22 Room Air I&O- Last 24 Hours up to 6 AM 08/19/19 06:00 Intake Total 510 ml Output Total 400 ml Balance 110 ml Laboratory Data 24H LABS Laboratory Tests 2 08/18/19 14:00: Nucleated Red Blood Cells % (auto) 0.0, Anion Gap 7L, Glomerular Filtration Rate > 60.0, Calcium Level 8.8, Total Bilirubin 0.6, Aspartate Amino Transf (AST/SGOT) 28, Alanine Aminotransferase (ALT/SGPT) 22, Alkaline Phosphatase 72, Total Protein 6.3L, Albumin 3.0L, Albumin/Globulin Ratio 0.91L 08/19/19 07:19: Nucleated Red Blood Cells % (auto) 0.0, Anion Gap 4L, Glomerular Filtration Rate > 60.0, Calcium Level 8.8, Immature Granulocyte % (Auto) 0.4, Neutrophils (%) (Auto) 47.9, Lymphocytes (%) (Auto) 35.7, Monocytes (%) (Auto) 10.2H, Eosinophils (%) (Auto) 4.8H, Basophils (%) (Auto) 1.0, Neutrophils # (Auto) 2.5, Lymphocytes # (Auto) 1.9, Monocytes # (Auto) 0.5, Eosinophils # (Auto) 0.3, Basophils # (Auto) 0.1 08/19/19 08:06: Bedside Glucose (Misc Panel) 139H CBC/BMP Laboratory Tests 08/18/19 14:00 08/19/19 07:19 EVELIO LYNCH MD Aug 19, 2019 09:04
[2019-08-19] MEDS: cefTRIAXone SOD 1 GM in D5W MINI-BAG PLUS 50 ML IV SCH (12:13)
[2019-08-19] MEDS: D5W/0.45% SODIUM CHLORIDE 1,000 ML IV SCH ×2 (13:06→20:59)
[2019-08-19] MEDS ORDERED: dexameTHASONE 4 MG/ML 1ML VIAL (J1100 PER 1MG) As Ordered ONE (18:17)
[2019-08-19] MEDS ORDERED: fentaNYL 100 MCG/2 ML INJECTION (J3010) As Ordered ONE (18:17)
[2019-08-19] MEDS ORDERED: LIDOCAINE 2% 100MG/5ML SDV (FOR ANES.) As Ordered ONE (18:17)
[2019-08-19] MEDS ORDERED: KETOROLAC 60 MG/2 ML VIAL As Ordered ONE (18:17)
[2019-08-19] MEDS ORDERED: ROCURONIUM BROMIDE 50 MG/5 ML VIAL As Ordered ONE (18:17)
[2019-08-19] MEDS ORDERED: propofoL 200 MG/20 ML VIAL As Ordered ONE (18:17)
[2019-08-19] MEDS ORDERED: ONDANSETRON 4MG/2ML VIAL As Ordered ONE (18:17)
[2019-08-19] MEDS ORDERED: MIDAZOLAM INJ 2MG/2ML VIAL (J2250 PER 1MG) As Ordered ONE (18:17)
[2019-08-19] MEDS ORDERED: ePHEDrine SULFATE 25 MG/5 ML(5MG/ML) SYRINGE As Ordered ONE (19:13)
--- NOTE | 2019-08-19 20:04 | ROOR ---
Patient Name: Kimberly Ramsey Procedure Date: 08/19/2019 10:18 AM Date of : 1945 Age: 74 Gender: Female Note Status: Finalized Procedure: Upper GI endoscopy Indications: Epigastric abdominal pain, Persistent vomiting of unknown cause Providers: Doyle Schwarz MD Referring MD: Trinity Kuhn Md Requesting Provider: Medicines: Monitored Anesthesia Care Complications: No immediate complications. Procedure: Pre-Anesthesia Assessment: - Prior to the procedure, a History and Physical was performed, and patient medications and allergies were reviewed. The patient is competent. The risks and benefits of the procedure and the sedation options and risks were discussed with the patient. All questions were answered and informed consent was obtained. Patient identification and proposed procedure were verified by the physician, the nurse and the anesthesiologist in the procedure room. Mental Status Examination: alert and oriented. Airway Examination: normal oropharyngeal airway and neck mobility. Respiratory Examination: clear to auscultation. CV Examination: normal. Prophylactic Antibiotics: The patient does not require prophylactic antibiotics. Prior Anticoagulants: The patient has taken no previous anticoagulant or antiplatelet agents. ASA Grade Assessment: III - A patient with severe systemic disease. After reviewing the risks and benefits, the patient was deemed in satisfactory condition to undergo the procedure. The anesthesia plan was to use monitored anesthesia care (MAC). Immediately prior to administration of medications, the patient was re-assessed for adequacy to receive sedatives. The heart rate, respiratory rate, oxygen saturations, blood pressure, adequacy of pulmonary ventilation, and response to care were monitored throughout the procedure. The physical status of the patient was re-assessed after the procedure. The Endoscope was introduced through the mouth, and advanced to the second part of duodenum. The Endoscope was introduced through the and advanced to the. The upper GI endoscopy was accomplished without difficulty. The patient tolerated the procedure well. Findings: One ulcerated stricture ( uncelar eriology) severe (stenosis; an endoscope cannot pass) stenosis was found 27 to 30 cm from the incisors. This stenosis measured 6 mm (inner diameter) x 30 cm (in length). The stenosis was traversed after downsizing scope. Biopsies were taken with a cold forceps for histology. Verification of patient identification for the specimen was done by the physician and nurse using the patient's name, date and medical record number. Estimated blood loss was minimal. A 5 cm hiatal hernia was present. No gross lesions were noted in the entire examined stomach. Patchy moderately erythematous mucosa without active bleeding and with no stigmata of bleeding was found in the duodenal bulb. The second portion of the duodenum was normal. Impression: - Esophageal stenosis. Biopsied. - 5 cm hiatal hernia. - No gross lesions in the stomach. - Erythematous duodenopathy. - Normal second portion of the duodenum. Recommendation: - Patient has a contact number available for emergencies. The signs and symptoms of potential delayed complications were discussed with the patient. Return to normal activities tomorrow. Written discharge instructions were provided to the patient. - Clear liquid diet today, then advance as tolerated to soft diet. - Continue present medications. ( switch all medications to liquid formulations or crush them and take with apple sauce if not contraindicated). - Use Protonix (pantoprazole) 40 mg PO twice daily - to be taken in morning (1/2 hour before breakfast) and at bedtime ( atleast 3 hours after last meal) for 3 months. - Await pathology results. - Repeat upper endoscopy in 4 weeks for dilation if pathology rules out malignancy.. - Return to GI clinic in [facility] (address [address], [address], [place], [address]) in 4 -- 6 weeks. Please call GI clinic @ [phone] for apppointment date and time. - Return to primary care physician. Doyle Schwarz MD Doyle Schwarz MD 08/19/2019 8:03:56 PM Electronically signed by Doyle Schwarz MD Number of Addenda: 0 Note Initiated On: 08/19/2019 10:18 AM Estimated Blood Loss: Estimated blood loss was minimal.
[2019-08-19] MEDS ORDERED: ONDANSETRON 4MG/2ML VIAL IV PRN (20:15)
[2019-08-19] MEDS ORDERED: D5W/0.45% SODIUM CHLORIDE 1,000 ML IV SCH (20:15)
[2019-08-19] MEDS ORDERED: oxyCODONE 5MG TAB PO PRN (20:15)
[2019-08-19] MEDS: **NOTE PATIENT COMMENT** MISC XX SCH (20:59)
[2019-08-19] MEDS: PANTOPRAZOLE 40MG VIAL (C9113 PER 1) IV SCH (20:59)
[2019-08-19] MEDS ORDERED: HumaLOG INSULIN (NovoLOG) PER UNIT SC SCH (21:00)
[2019-08-19] MEDS ORDERED: SERTRALINE 100 MG TAB PO SCH (21:00)
[2019-08-19] MEDS ORDERED: SIMVASTATIN 20 MG TAB PO SCH (21:00)
[2019-08-19] MEDS ORDERED: EZETIMIBE 10 MG TAB (ZETIA) PO SCH (21:00)
[2019-08-20 00:50] VITALS: BP 142/76
[2019-08-20 02:00] VITALS: BP 139/69
[2019-08-20 06:00] VITALS: BP 147/74
[2019-08-20 06:56] LABS: BASO % 0.7 % (0.0-1.0); EOS # 0.2 10^3/uL (0.0-0.5); EOS % 3.3 % (0.0-3.0); HEMOGLOBIN 11.8 g/dl (12.0-15.5); LYMPH # 1.7 10^3/uL (1.5-5.0); LYMPH % 31.1 % (24.0-44.0); MEAN CORPUSCULAR HEMOGLOBIN 26.8 pg (27.0-33.0); MEAN CORPUSCULAR HGB CONC 31.1 g/dl (32.0-36.5); MEAN CORPUSCULAR VOLUME 86.2 fl (80.0-96.0); MONO # 0.5 10^3/uL (0.0-0.8); MONO % 9.6 % (0.0-5.0); NEUTROPHILS % 54.9 % (36.0-66.0); PLATELET COUNT, AUTOMATED 181 10^3/uL (150-450); RED BLOOD COUNT 4.41 10^6/uL (4.00-5.40); WHITE BLOOD COUNT 5.4 10^3/uL (4.0-10.0)
[2019-08-20 07:20] LABS: BLOOD UREA NITROGEN 5 MG/DL (7-18); CALCIUM LEVEL 8.8 MG/DL (8.8-10.2); CARBON DIOXIDE LEVEL 32 MEQ/L (21-32); CHLORIDE LEVEL 99 MEQ/L (98-107); CREATININE FOR GFR 0.75 MG/DL (0.55-1.30); GLOMERULAR FILTRATION RATE > 60.0 (>39); GLUCOSE, FASTING 91 MG/DL (70-100); POTASSIUM SERUM 3.6 MEQ/L (3.5-5.1); SODIUM LEVEL 137 MEQ/L (136-145)
[2019-08-20] MEDS: HumaLOG INSULIN (NovoLOG) PER UNIT SC SCH ×2 (07:30→12:32)
[2019-08-20] MEDS: LEVEMIR (INSULIN DETEMIR) 1 UNITS/0.01ML SC SCH (07:38)
[2019-08-20] MEDS: IPRATROPIUM 0.5MG/ALBUTEROL 2.5MG INH SOL UD 3ML (DUONEB)(J7620) NEB SCH (08:56)
[2019-08-20] MEDS: ENOXAPARIN 40MG/0.4ML SYRINGE (J1650 PER 10MG) SC SCH (09:14)
[2019-08-20] MEDS: PANTOPRAZOLE 40MG VIAL (C9113 PER 1) IV SCH (09:14)
[2019-08-20] MEDS: cefTRIAXone SOD 1 GM in D5W MINI-BAG PLUS 50 ML IV SCH (09:14)
[2019-08-20 09:15] VITALS: BP 130/64
[2019-08-20] MEDS: LOSARTAN 50 MG TAB PO SCH (09:15)
[2019-08-20] MEDS: MONTELUKAST 10 MG TAB PO SCH (09:15)
[2019-08-20] MEDS: METOPROLOL SUCC (TopROL XL) 50MG **XL** TAB PO SCH (09:15)
[2019-08-20] MEDS: LIDOCAINE 5% (LIDODERM) PATCH TD SCH (09:16)
[2019-08-20] MEDS ORDERED: PROTPAK PO (10:25)
--- NOTE | 2019-08-20 13:11 | DS.PDOC ---
Discharge Summary General Date of Admission Aug 18, 2019 at 13:15 Date of Discharge 08/20/19 Discharge Summary PROCEDURES PERFORMED DURING STAY: EGD: One ulcerated stricture ( uncelar eriology) severe (stenosis; an endoscope cannot pass) stenosis was found 27 to 30 cm from the incisors. This stenosis measured 6 mm (inner diameter) x 30 cm (in length). The stenosis was traversed after downsizing scope. Biopsies were taken with a cold forceps for histology. Verification of patient identification for the specimen was done by the physician and nurse using the patient's name, date and medical record number. Estimated blood loss was minimal. A 5 cm hiatal hernia was present. No gross lesions were noted in the entire examined stomach. Patchy moderately erythematous mucosa without active bleeding and with no stigmata of bleeding was found in the duodenal bulb. The second portion of the duodenum was normal. Impression: - Esophageal stenosis. Biopsied. - 5 cm hiatal hernia. - No gross lesions in the stomach. - Erythematous duodenopathy. - Normal second portion of the duodenum. DISCHARGE DIAGNOSES: Esophageal stenosis with ulceration s/p biopsy Erythematous Duodenopathy Musculoskeletal pain UTI SECONDARY DIAGNOSIS: COPD Chronic hypoxic respiratory failure Moderate Pulmonary hypertesnion MINI Mild Mitral regurgitation HTN H/o Bilateral nephrolithiasis with h/o ureteral stones and lithotripsy of left renal stone in 2016 Diastolic CHF DM2 OA / Fibromyalgia DLP Chronic urinary incontinence GERD Benign esophageal stenosis s/p dilatation in 2018 Hiatal hernia history of urinary incontinence, history of chronic back pain history of depression. Ventral hernia repair. COMPLICATIONS/CHIEF COMPLAINT: Gastric/Duodenal Ulcer. HISTORY OF PRESENT ILLNESS: See History and physical HOSPITAL COURSE: 74 year old female has been transferred from [facility] for persistent abdominal pain, nausea, poor appetite for evaluation by Gastroenterology and possible EGD as work up in outside hospital with Upper GI series and CT scan showing diffuse gastritis and possible duodenal ulcer. Today patient now complains of pain dull aching in type located int he right lumber region and right flank. She also complains of pain in the right lower chest and right back. Intensity of the pain is about 5/10. She also complains of persistent nausea, no diarrhea or constipation, no vomiting. She also complains of poor appetite. She has been admitted for work up of abdominal pain and possible peptic ulcer disease. Abdominal pain due to esophageal stenosis and Duodenopathy and musculoskeetal pain S/P EGD and biopsy of stenotic area. Will need EGD in 1 month and dilatation of stenosis if biopsy results are negative for malignancy. continue pantoprazole bid for 3 months. Diffuse musculoskeletal pain all over the abdominal wall mostly in the right lumber region , back , chest wall has h/o chronic abdominal pain before felt to be musculoskeletal, fibromyalgia. continue home meds. GERD/Hiatal hernia and esophageal stricture continue PPI COPD with chronic hypoxic respiratory failure continue home meds oxygen UTI Ecoli in culture finished treatment Diabetes continue metformin and levemir and lispro. Hypertension continue losartan and metoprolol Hyperlipidemia continue statin and zetia Depression continue sertraline. DISCHARGE MEDICATIONS: Please see below. ALLERGIES: Please see below. PHYSICAL EXAMINATION ON DISCHARGE: VITAL SIGNS: Please see below. General Exam: Positive: Alert, Cooperative, No Acute Distress Eye Exam: Positive: PERRLA, Conjunctiva & lids normal, EOMI; Negative: Sclera icteric ENT Exam: Positive: Atraumatic, Mucous membr. moist/pink, Pharynx Normal Neck Exam: Positive: Supple; Negative: JVD, thyromegaly Chest Exam: Positive: Clear to auscultation, Normal air movement Heart Exam: Positive: Rate Normal, Regular Rhythm, Normal S1, Normal S2, Murmurs (systolic murmur present); Negative: Rubs Abdomen Exam: Positive: Normal bowel sounds, Soft, Tenderness (in the right lumber region and right flank), Other (obese, midline scar from umbilicus to above the symphysis pubis. ) Extremity Exam: Negative: Clubbing, Cyanosis, Edema Skin Exam: Positive: Nl turgor and temperature; Negative: Breakdown, Lesion Psych Exam: Positive: Memory Intact, Oriented x 3 LABORATORY DATA: Please see below. ACTIVITY: [As tolerated]. DIET: Soft Diet DISPOSITION: Home, Self-Care. DISCHARGE INSTRUCTIONS: Follow up with GI in 3 weeks Follow up with PMD in 1 to 2 weeks ITEMS TO FOLLOWUP ON ON OUTPATIENT: Biopsy results from EGD. DISCHARGE CONDITION: [Stable]. TIME SPENT ON DISCHARGE: 35 minutes. Vital Signs/I&Os Vital Signs Date Time Temp Pulse Resp B/P (MAP) Pulse Ox O2 Delivery O2 Flow Rate FiO2 08/20/19 09:15 81 130/64 08/20/19 06:00 97.3 18 96 08/20/19 00:50 Room Air 08/19/19 19:30 8 I&O- Last 24 Hours up to 6 AM 08/20/19 05:59 Intake Total 2285 ml Output Total 600 ml Balance 1685 ml Laboratory Data Labs 24H Laboratory Tests 2 08/19/19 16:39: Bedside Glucose (Misc Panel) 82L 08/19/19 20:37: Bedside Glucose (Misc Panel) 92 08/20/19 05:43: Immature Granulocyte % (Auto) 0.4, Neutrophils (%) (Auto) 54.9, Lymphocytes (%) (Auto) 31.1, Monocytes (%) (Auto) 9.6H, Eosinophils (%) (Auto) 3.3H, Basophils (%) (Auto) 0.7, Neutrophils # (Auto) 3.0, Lymphocytes # (Auto) 1.7, Monocytes # (Auto) 0.5, Eosinophils # (Auto) 0.2, Basophils # (Auto) 0.0, Nucleated Red Blood Cells % (auto) 0.0, Anion Gap 6L, Glomerular Filtration Rate > 60.0, Calcium Level 8.8 08/20/19 11:29: Bedside Glucose (Misc Panel) 168H CBC/BMP Laboratory Tests 08/20/19 05:43 FSBS Laboratory Tests Test 08/19/19 16:39 08/19/19 20:37 08/20/19 11:29 Range/Units Bedside Glucose (Misc Panel) 82 92 168 83-110 MG/DL Discharge Medications Scheduled Aspirin (Aspirin EC) 81 Mg Tab, 81 MG PO DAILY, (Reported) Calcium Carbonate (Calcium) 500 Mg Tablet, 500 MG PO BID, (Reported) Cyanocobalamin (Vitamin B-12) (Vitamin B-12) 1,000 Mcg Tab, 1,000 MCG PO DAILY, (Reported) Ezetimibe (Zetia) 10 Mg Tab, 10 MG PO QHS, (Reported) Insulin Detemir (Levemir Flextouch) 100 Unit/1 Ml Insuln.pen, 40 UNITS SQ DAILY, (Reported) Insulin Lispro (Humalog Kwikpen U-100) 100 Unit/1 Ml Insuln.pen, 1 DOSE SQ AC, (Reported) Losartan Potassium (Losartan Potassium) 50 Mg Tablet, 50 MG PO DAILY, (Reported) RECEIVED VALSARTAN 160MG AT [facility] Metformin HCl (Metformin HCl) 500 Mg Tab, 500 MG PO BID, (Reported) Metoprolol Succinate (Toprol Xl) 50 Mg Tab, 50 MG PO DAILY, (Reported) Montelukast Sodium (Montelukast Sodium) 10 Mg Tab, 10 MG PO DAILY, (Reported) Pantoprazole Sodium (Protonix) 40 Mg Granpkt.dr, 40 MG PO BID Sertraline HCl (Sertraline HCl) 100 Mg Tablet, 100 MG PO QHS, (Reported) Simvastatin (Zocor) 20 Mg Tab, 20 MG PO QHS, (Reported) RECEIVED LIPITOR 10MG AT [facility] Scheduled PRN Albuterol Sulfate (Proair Hfa) 108 Mcg/Act Aer, 2 PUFF INH QID PRN for SHORTNESS OF BREATH, (Reported) Fluticasone Propionate (Flonase Allergy Relief) 50 Mcg/Act Spr, 2 SPRAYS NA DAILY PRN for ALLERGIES, (Reported) Ipratropium [place] (Atrovent Hfa) 17 Mcg/Act Aer, 1 PUFF INH BID PRN for SHORTNESS OF BREATH, (Reported) Nitroglycerin (Nitrostat) 0.4 Mg Subl, 0.4 MG SL NITRO PRN for CHEST PAIN, (Reported) Nystatin (Nystatin Powder) 100,000 Unit/Gm Pow, 1 DOSE TOP BID PRN for RASH/ITCHING, (Reported) APPLY TO GROIN AND UNDER BREASTS Allergies Coded Allergies: ibuprofen (Verified Adverse Reaction, Intermediate, MAKES HER CRAZY, 08/18/19) prednisone (Verified Adverse Reaction, Intermediate, MAKES HER ANGRY, ) EVELIO LYNCH MD Aug 20, 2019 13:10
== END 2019-08-20 12:47 | disposition home or self-care (01) | DRG 381 ==
LOC: M MSPAV 13:15
PROVIDERS: ADMIT Internal Medicine; ATTEND Internal Medicine Nephrology
PROC: 0DB58ZX Excision of Esophagus, Via Natural or Artificial Opening Endoscopic, Diagnostic (ICD-10-PCS; principal; 2019-08-19 17:30)
DX: K22.10 Ulcer of esophagus without bleeding (principal); I50.32 Chronic diastolic (congestive) heart failure; J96.11 Chronic respiratory failure with hypoxia; N39.0 Urinary tract infection, site not specified; J44.9 Chronic obstructive pulmonary disease, unspecified; K22.2 Esophageal obstruction; K44.9 Diaphragmatic hernia without obstruction or gangrene; G47.33 Obstructive sleep apnea (adult) (pediatric); I27.20 Pulmonary hypertension, unspecified; K21.9 Gastro-esophageal reflux disease without esophagitis; I11.0 Hypertensive heart disease with heart failure; M19.90 Unspecified osteoarthritis, unspecified site; M79.7 Fibromyalgia; I34.0 Nonrheumatic mitral (valve) insufficiency; E11.9 Type 2 diabetes mellitus without complications; B96.29 Other Escherichia coli [E. coli] as the cause of diseases classified elsewhere; E78.5 Hyperlipidemia, unspecified; F32.9 Major depressive disorder, single episode, unspecified; Z79.899 Other long term (current) drug therapy; Z79.82 Long term (current) use of aspirin; Z79.4 Long term (current) use of insulin; Z88.6 Allergy status to analgesic agent; Z88.8 Allergy status to other drugs, medicaments and biological substances; Z87.442 Personal history of urinary calculi

== ENCOUNTER → 2019-09-13 | Outpatient (CLI) | payer MEDICARE ==
[~2019-09-13] MED LIST changes: +HUMA100I5 SQ; +IPRA0.00 INH; +LEVE1INJ5 SQ; +OYST1TAB PO; +POTA10TA14 PO; +PROM25AM IV; +PROT40IN4 IV; +PROTPAK PO; +SUCR1TAB56 PO; +[UNRECOGNIZED DRUG - CODE] IV
== END ==
LOC: M LABSMTC 10:14
PROVIDERS: ATTEND Anesthesiology
DX: Z01.818 Encounter for other preprocedural examination (principal); Z11.59 Encounter for screening for other viral diseases
CPT/HCPCS: C9803; U0003

== ENCOUNTER → 2019-09-28 | Outpatient (CLI) | payer MEDICARE, MEDICAID | LOC: M LABSMTC 12:42 | PROVIDERS: ATTEND Anesthesiology | DX: Z01.818 Encounter for other preprocedural examination (principal); Z11.59 Encounter for screening for other viral diseases | CPT/HCPCS: C9803; U0003 ==

== ENCOUNTER → 2019-10-14 | Outpatient (REF) ==
[~2019-10-14] MED LIST changes: +ASPI81TA85 PO; +CYAN100050 PO; +INSUDET SC; +IPRAINH INH; +METO1TAB7 PO; +NYST10006 TOP; +ONDA-83 PO; +POTA20EL PO; +SIMV20TA22 PO; +SUCR1ORA PO; +TRAM50TA2 PO
[2019-10-14 10:20] LABS: BLOOD UREA NITROGEN 10 MG/DL (7-18); CALCIUM LEVEL 9.3 MG/DL (8.8-10.2); CARBON DIOXIDE LEVEL 34 MEQ/L (21-32); CHLORIDE LEVEL 101 MEQ/L (98-107); CREATININE FOR GFR 0.88 MG/DL (0.55-1.30); GLOMERULAR FILTRATION RATE > 60.0 (>39); GLUCOSE, FASTING 48 MG/DL (70-100); POTASSIUM SERUM 3.7 MEQ/L (3.5-5.1); SODIUM LEVEL 138 MEQ/L (136-145)
== END ==
LOC: MERGE 07:00 → SKLAB2 07:00
PROVIDERS: ATTEND Internal Medicine
DX: E87.6 Hypokalemia (principal)

== ENCOUNTER → 2019-10-15 | Outpatient (REF) | payer MEDICARE, MEDICAID ==
[~2019-10-15] MED LIST changes: -ASPI81TA85 PO; -CYAN100050 PO; -INSUDET SC; -IPRAINH INH; -METO1TAB7 PO; -NYST10006 TOP; -ONDA-83 PO; -POTA20EL PO; -SIMV20TA22 PO; -SUCR1ORA PO; -TRAM50TA2 PO
== END ==
LOC: SKLAB2 06:00
PROVIDERS: ATTEND Internal Medicine
DX: R73.01 Impaired fasting glucose (principal)

== ENCOUNTER → 2019-10-19 | Outpatient (REF) ==
[~2019-10-19] MED LIST changes: +ASPI81TA85 PO; +CYAN100050 PO; +INSUDET SC; +IPRAINH INH; +METO1TAB7 PO; +NYST10006 TOP; +ONDA-83 PO; +POTA20EL PO; +SIMV20TA22 PO; +SUCR1ORA PO; +TRAM50TA2 PO
[2019-10-19 07:30] LABS: HEMATOCRIT 39.3 % (36.0-47.0); HEMOGLOBIN 12.4 g/dl (12.0-15.5); MEAN CORPUSCULAR HEMOGLOBIN 28.2 pg (27.0-33.0); MEAN CORPUSCULAR HGB CONC 31.6 g/dl (32.0-36.5); MEAN CORPUSCULAR VOLUME 89.3 fl (80.0-96.0); PLATELET COUNT, AUTOMATED 245 10^3/uL (150-450); WHITE BLOOD COUNT 6.3 10^3/uL (4.0-10.0)
[2019-10-19 07:53] LABS: BLOOD UREA NITROGEN 11 MG/DL (7-18); CALCIUM LEVEL 9.2 MG/DL (8.8-10.2); CARBON DIOXIDE LEVEL 33 MEQ/L (21-32); CHLORIDE LEVEL 103 MEQ/L (98-107); CHOLESTEROL LEVEL 131 MG/DL (<200); CHOLESTEROL RISK RATIO 3.275 (<5); CREATININE FOR GFR 0.95 MG/DL (0.55-1.30); GLOMERULAR FILTRATION RATE > 60.0 (>39); GLUCOSE, FASTING 68 MG/DL (70-100); HDL CHOLESTEROL 40 MG/DL (>40); LDL CHOLESTEROL 67 MG/DL (<100); NON-HDL-C 91 MG/DL; POTASSIUM SERUM 4.7 MEQ/L (3.5-5.1); SODIUM LEVEL 141 MEQ/L (136-145); TRIGLYCERIDES LEVEL 120 MG/DL (<150)
[2019-10-19 10:24] LABS: HEMOGLOBIN A1c 6.1 %
== END ==
LOC: MERGE 10:29 → SKLAB2 10:29
PROVIDERS: ATTEND Internal Medicine
DX: E78.5 Hyperlipidemia, unspecified (principal); E11.9 Type 2 diabetes mellitus without complications

== ENCOUNTER → 2019-10-26 | Outpatient (REF) ==
[2019-10-26 09:01] LABS: CALCIUM LEVEL 9.7 MG/DL (8.8-10.2); CREATININE FOR GFR 1.04 MG/DL (0.55-1.30); GLOMERULAR FILTRATION RATE 55.3 (>39); POTASSIUM SERUM 4.7 MEQ/L (3.5-5.1)
== END ==
LOC: SKLAB2 07:00 → MERGE 08:46
PROVIDERS: ATTEND Internal Medicine
DX: E87.6 Hypokalemia (principal)

== ENCOUNTER → 2019-10-29 | Outpatient (REF) | LOC: SKLAB2 09:11 | PROVIDERS: ATTEND Nurse Practitioner Family | DX: R19.7 Diarrhea, unspecified (principal) ==

== ENCOUNTER 2019-12-03 11:30 | Day surgery (SDC) | payer MEDICARE, MEDICAID ==
[~2019-12-03 11:30] MED LIST changes: -LIDO2SOL17 PO; -LOPR1TAB6 PO; -PANT-23 PO; -POTA1TAB23 PO; -SUCR1ORA2 PO; -TRAD5TAB PO
[2019-12-03] MEDS ORDERED: propofoL 500 MG/50 ML VIAL As Ordered ONE (11:42)
[2019-12-03] MEDS ORDERED: fentaNYL 100 MCG/2 ML INJECTION (J3010) As Ordered ONE (11:42)
[2019-12-03] MEDS ORDERED: LIDOCAINE 2% INJ 100 MG/5 ML SYRINGE As Ordered ONE (11:42)
--- NOTE | 2020-01-05 11:33 | ROOR ---
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 Procedure: Pre-Anesthesia Assessment: - Prior to the procedure, a History and Physical was performed, and patient medications and allergies were reviewed. The patient is competent. The risks and benefits of the procedure and the sedation options and risks were discussed with the patient. All questions were answered and informed consent was obtained. Patient identification and proposed procedure were verified by the physician, the nurse and the anesthesiologist in the procedure room. Mental Status Examination: alert and oriented. Airway Examination: normal oropharyngeal airway and neck mobility. Respiratory Examination: clear to auscultation. CV Examination: normal. Prophylactic Antibiotics: The patient does not require prophylactic antibiotics. Prior Anticoagulants: The patient has taken no previous anticoagulant or antiplatelet agents. ASA Grade Assessment: III - A patient with severe systemic disease. After reviewing the risks and benefits, the patient was deemed in satisfactory condition to undergo the procedure. The anesthesia plan was to use monitored anesthesia care (MAC). Immediately prior to administration of medications, the patient was re-assessed for adequacy to receive sedatives. The heart rate, respiratory rate, oxygen saturations, blood pressure, adequacy of pulmonary ventilation, and response to care were monitored throughout the procedure. The physical status of the patient was re-assessed after the procedure. The Colonoscope was introduced through the anus with the intention of advancing to the cecum. The scope was advanced to the descending colon before the procedure was aborted. Medications were given. The colonoscopy was performed without difficulty. The patient tolerated the procedure well. The quality of the bowel preparation was unsatisfactory. No anatomical landmarks were photographed. Scope insertion time was 2 minutes. Scope withdrawal time was 3 minutes. The total duration of the procedure was 10 minutes. Findings: The perianal and digital rectal examinations were normal. A large amount of semi-liquid semi-solid stool was found from rectum to descending colon, precluding visualization. Lavage of the area was performed using a large amount of sterile water, resulting in incomplete clearance with continued poor visualization. Impression: - Preparation of the colon was unsatisfactory. - Stool from rectum to descending colon. - No specimens collected. Recommendation: - Patient has a contact number available for emergencies. The signs and symptoms of potential delayed complications were discussed with the patient. Return to normal activities tomorrow. Written discharge instructions were provided to the patient. - Pureed diet and soft diet. - Repeat colonoscopy in 3 months because the bowel preparation was poor. - Telephone GI clinic to schedule appointment in [facility] (address [address] [place] [address], [address] [address]) in 4 -- 6 weeks. Please call GI clinic @ [phone] for apppointment date and time. - Return to primary care physician. Doyle Schwarz MD 12/03/2019 1:15:22 PM Number of Addenda: 0 Note Initiated On: 12/03/2019 12:17 PM Estimated Blood Loss: Estimated blood loss was minimal.
--- NOTE | 2020-01-05 11:33 | ROOR ---
Patient Name: Kimberly Ramsey Procedure Date: 12/03/2019 12:16 PM Date of : 1945 Age: 74 Room: [facility] Gender: Female Note Status: Finalized Procedure: Upper GI endoscopy Indications: Dysphagia Providers: Doyle Schwarz MD Referring MD: TWIN VENCES MD Requesting Provider: Medicines: Monitored Anesthesia Care Complications: No immediate complications. Procedure: Pre-Anesthesia Assessment: - Prior to the procedure, a History and Physical was performed, and patient medications and allergies were reviewed. The patient is competent. The risks and benefits of the procedure and the sedation options and risks were discussed with the patient. All questions were answered and informed consent was obtained. Patient identification and proposed procedure were verified by the physician, the nurse and the anesthesiologist in the procedure room. Mental Status Examination: alert and oriented. Airway Examination: normal oropharyngeal airway and neck mobility. Respiratory Examination: clear to auscultation. CV Examination: normal. Prophylactic Antibiotics: The patient does not require prophylactic antibiotics. Prior Anticoagulants: The patient has taken no previous anticoagulant or antiplatelet agents. ASA Grade Assessment: II - A patient with mild systemic disease. After reviewing the risks and benefits, the patient was deemed in satisfactory condition to undergo the procedure. The anesthesia plan was to use monitored anesthesia care (MAC). Immediately prior to administration of medications, the patient was re-assessed for adequacy to receive sedatives. The heart rate, respiratory rate, oxygen saturations, blood pressure, adequacy of pulmonary ventilation, and response to care were monitored throughout the procedure. The physical status of the patient was re-assessed after the procedure. The Endoscope was introduced through the mouth, and advanced to the second part of duodenum. The upper GI endoscopy was accomplished without difficulty. The patient tolerated the procedure well. Findings: One benign-appearing, intrinsic severe (stenosis; an endoscope cannot pass) stenosis was found in the mid esophagus. This stenosis measured 6 mm (inner diameter). The stenosis was traversed after downsizing scope and dilating. A TTS dilator was passed through the scope. Dilation with a 10-11-12 mm balloon dilator was performed to 12 mm. The dilation site was examined following endoscope reinsertion and showed mild mucosal disruption, moderate improvement in luminal narrowing, no bleeding and no perforation. Estimated blood loss was minimal. No gross lesions were noted in the entire examined stomach. The duodenal bulb and second portion of the duodenum were normal. Impression: - Benign-appearing esophageal stenosis. Dilated. - No gross lesions in the stomach. - Normal duodenal bulb and second portion of the duodenum. - No specimens collected. Recommendation: - Patient has a contact number available for emergencies. The signs and symptoms of potential delayed complications were discussed with the patient. Return to normal activities tomorrow. Written discharge instructions were provided to the patient. - Pureed diet and soft diet. - Continue present medications. - Repeat upper endoscopy in 6 weeks to check healing and for retreatment. - Use sucralfate suspension 1 gram PO QID. - Return to GI clinic in [facility] (address [address], [address], [place], [facility]) in 4 -- 6 weeks. Please call GI clinic @ [phone] for apppointment date and time. - Return to primary care physician. Doyle Schwarz MD Doyle Schwarz MD 12/03/2019 1:12:33 PM Electronically signed by Doyle Schwarz MD Number of Addenda: 0 Note Initiated On: 12/03/2019 12:16 PM Estimated Blood Loss: Estimated blood loss was minimal.
== END 2019-12-03 14:00 | disposition home or self-care (01) ==
LOC: M OPP 11:30
PROVIDERS: ATTEND Internal Medicine Gastroenterology
DX: K52.9 Noninfective gastroenteritis and colitis, unspecified (principal); K22.2 Esophageal obstruction; R13.10 Dysphagia, unspecified; I10 Essential (primary) hypertension; E11.9 Type 2 diabetes mellitus without complications; J44.9 Chronic obstructive pulmonary disease, unspecified; Z79.4 Long term (current) use of insulin; Z79.82 Long term (current) use of aspirin; Z79.899 Other long term (current) drug therapy; Z88.8 Allergy status to other drugs, medicaments and biological substances; Z87.891 Personal history of nicotine dependence
CPT/HCPCS: 43249; 45378; J3010

== ENCOUNTER → 2019-12-03 | Emergency (ER) | payer MEDICARE, MEDICAID ==
[~2019-12-03] MED LIST changes: +AMLO1TAB24 PO; -AMLO5TAB6 PO; -ASPI81TA85 PO; +ASPI81TA86 PO; +LIDO2SOL17 PO; +LOPR1TAB6 PO; +PANT-23 PO; +PANT40TA29 PO; -PANT40TA3 PO; +POTA1TAB23 PO; +SUCR1ORA2 PO; +TRAD5TAB PO
== END | disposition home or self-care (01) ==
LOC: M ED 22:40
DX: R53.83 Other fatigue (principal); T42.75XA Adverse effect of unspecified antiepileptic and sedative-hypnotic drugs, initial encounter; Y92.9 Unspecified place or not applicable; Y93.9 Activity, unspecified; E11.9 Type 2 diabetes mellitus without complications; I10 Essential (primary) hypertension; Z79.82 Long term (current) use of aspirin; Z79.899 Other long term (current) drug therapy; Z88.6 Allergy status to analgesic agent; Z88.5 Allergy status to narcotic agent

== ENCOUNTER 2019-12-10 15:30 | Inpatient (IN) | payer MEDICARE, MEDICAID ==
[~2019-12-10] VITALS: Ht 157.5 cm; Wt 76.5 kg
[~2019-12-10 15:30] MED LIST changes: +ISOVUE-370 76% 100ML VIAL As Ordered ONE; +ONDANSETRON 4MG/2ML VIAL As Ordered ONE; +ZOSYN 4.5GM VIAL (J2543) As Ordered ONE
[2019-12-11] MEDS ORDERED: SIMVASTATIN 20 MG TAB As Ordered ONE ×2 (00:02→22:03)
[2019-12-11] MEDS ORDERED: SERTRALINE 100 MG TAB As Ordered ONE ×2 (00:02→22:03)
[2019-12-11] MEDS ORDERED: SUCRALFATE SUSP 1GM/10ML UD As Ordered ONE ×5 (00:02→23:54)
[2019-12-11] MEDS ORDERED: SUCRALFATE SUSP 1GM/10ML UD ONE ×5 (05:51→23:54)
[2019-12-11] MEDS ORDERED: HEPARIN SOD (PORCINE) 5000UNITS/ML 1ML VIAL/SYRINGE ONE ×2 (08:36→22:03)
[2019-12-11] MEDS ORDERED: HEPARIN SOD (PORCINE) 5000UNITS/ML 1ML VIAL/SYRINGE As Ordered ONE ×2 (08:36→22:03)
[2019-12-11] MEDS ORDERED: PANTOPRAZOLE 40MG VIAL (C9113 PER 1) As Ordered ONE (11:12)
[2019-12-11] MEDS ORDERED: MONTELUKAST 10 MG TAB ONE (11:12)
[2019-12-11] MEDS ORDERED: LOSARTAN 50MG TABLET ONE (11:12)
[2019-12-11] MEDS ORDERED: METOPROLOL SUCC (TopROL XL) 50MG **XL** TAB ONE (11:12)
[2019-12-11] MEDS ORDERED: PANTOPRAZOLE 40MG VIAL (C9113 PER 1) ONE (11:12)
[2019-12-11] MEDS ORDERED: METOPROLOL SUCC (TopROL XL) 50MG **XL** TAB As Ordered ONE (11:13)
[2019-12-11] MEDS ORDERED: LOSARTAN 50MG TABLET As Ordered ONE (11:13)
[2019-12-11] MEDS ORDERED: MONTELUKAST 10 MG TAB As Ordered ONE (11:13)
[2019-12-11] MEDS ORDERED: SERTRALINE 100 MG TAB ONE ×3 (12:02→22:03)
[2019-12-11] MEDS ORDERED: SIMVASTATIN 20 MG TAB ONE ×2 (12:02→22:03)
[2019-12-12] MEDS ORDERED: SUCRALFATE SUSP 1GM/10ML UD ONE ×3 (05:53→23:56)
[2019-12-12] MEDS ORDERED: SUCRALFATE SUSP 1GM/10ML UD As Ordered ONE ×3 (05:53→23:56)
[2019-12-12] MEDS ORDERED: METOPROLOL SUCC (TopROL XL) 50MG **XL** TAB ONE (09:05)
[2019-12-12] MEDS ORDERED: LOSARTAN 50MG TABLET ONE (09:05)
[2019-12-12] MEDS ORDERED: PANTOPRAZOLE 40MG VIAL (C9113 PER 1) As Ordered ONE (09:05)
[2019-12-12] MEDS ORDERED: MONTELUKAST 10 MG TAB ONE (09:05)
[2019-12-12] MEDS ORDERED: PANTOPRAZOLE 40MG VIAL (C9113 PER 1) ONE (09:05)
[2019-12-12] MEDS ORDERED: HEPARIN SOD (PORCINE) 5000UNITS/ML 1ML VIAL/SYRINGE ONE ×2 (09:05→21:35)
[2019-12-12] MEDS ORDERED: HEPARIN SOD (PORCINE) 5000UNITS/ML 1ML VIAL/SYRINGE As Ordered ONE ×2 (09:06→21:35)
[2019-12-12] MEDS ORDERED: METOPROLOL SUCC (TopROL XL) 50MG **XL** TAB As Ordered ONE (09:06)
[2019-12-12] MEDS ORDERED: LOSARTAN 50MG TABLET As Ordered ONE (09:07)
[2019-12-12] MEDS ORDERED: MONTELUKAST 10 MG TAB As Ordered ONE (09:09)
[2019-12-12] MEDS ORDERED: METOCLOPRAMIDE 10 MG TAB As Ordered ONE ×2 (09:16→21:36)
[2019-12-12] MEDS ORDERED: METOCLOPRAMIDE 10 MG TAB ONE ×2 (09:16→21:35)
[2019-12-12] MEDS ORDERED: SERTRALINE 100 MG TAB ONE (21:35)
[2019-12-12] MEDS ORDERED: SIMVASTATIN 20 MG TAB ONE (21:35)
[2019-12-12] MEDS ORDERED: SIMVASTATIN 20 MG TAB As Ordered ONE (21:36)
[2019-12-12] MEDS ORDERED: SERTRALINE 100 MG TAB As Ordered ONE (21:36)
[2019-12-13] MEDS ORDERED: SUCRALFATE SUSP 1GM/10ML UD As Ordered ONE ×3 (05:18→17:41)
[2019-12-13] MEDS ORDERED: SUCRALFATE SUSP 1GM/10ML UD ONE ×3 (05:18→17:41)
[2019-12-13] MEDS ORDERED: MONTELUKAST 10 MG TAB ONE (10:27)
[2019-12-13] MEDS ORDERED: MONTELUKAST 10 MG TAB As Ordered ONE (10:27)
[2019-12-13] MEDS ORDERED: PANTOPRAZOLE 40MG VIAL (C9113 PER 1) As Ordered ONE (10:27)
[2019-12-13] MEDS ORDERED: METOPROLOL TART 50 MG TAB As Ordered ONE (10:27)
[2019-12-13] MEDS ORDERED: LOSARTAN 50MG TABLET ONE (10:27)
[2019-12-13] MEDS ORDERED: METOPROLOL TART 50 MG TAB ONE (10:27)
[2019-12-13] MEDS ORDERED: HEPARIN SOD (PORCINE) 5000UNITS/ML 1ML VIAL/SYRINGE ONE ×2 (10:27→20:37)
[2019-12-13] MEDS ORDERED: PANTOPRAZOLE 40MG VIAL (C9113 PER 1) ONE (10:27)
[2019-12-13] MEDS ORDERED: LOSARTAN 50MG TABLET As Ordered ONE (10:28)
[2019-12-13] MEDS ORDERED: HEPARIN SOD (PORCINE) 5000UNITS/ML 1ML VIAL/SYRINGE As Ordered ONE ×2 (10:28→20:37)
[2019-12-13] MEDS ORDERED: HumaLOG INSULIN (NovoLOG) PER UNIT As Ordered ONE (12:26)
[2019-12-13] MEDS ORDERED: HumaLOG INSULIN (NovoLOG) PER UNIT ONE (12:26)
[2019-12-13] MEDS ORDERED: ACETAMINOPHEN TAB 650MG DOSE (2X325MG) As Ordered ONE (20:37)
[2019-12-13] MEDS ORDERED: SERTRALINE 100 MG TAB ONE (20:37)
[2019-12-13] MEDS ORDERED: SIMVASTATIN 20 MG TAB ONE (20:37)
[2019-12-13] MEDS ORDERED: SIMVASTATIN 20 MG TAB As Ordered ONE (20:37)
[2019-12-13] MEDS ORDERED: SERTRALINE 100 MG TAB As Ordered ONE (20:37)
[2019-12-13] MEDS ORDERED: ACETAMINOPHEN TAB 650MG DOSE (2X325MG) ONE (20:37)
[2019-12-14] MEDS ORDERED: SUCRALFATE SUSP 1GM/10ML UD As Ordered ONE ×4 (00:17→17:32)
[2019-12-14] MEDS ORDERED: SUCRALFATE SUSP 1GM/10ML UD ONE ×5 (00:17→23:08)
[2019-12-14] MEDS ORDERED: PANTOPRAZOLE 40MG VIAL (C9113 PER 1) ONE (08:12)
[2019-12-14] MEDS ORDERED: PANTOPRAZOLE 40MG VIAL (C9113 PER 1) As Ordered ONE (08:12)
[2019-12-14] MEDS ORDERED: ACETAMINOPHEN TAB 650MG DOSE (2X325MG) As Ordered ONE (08:13)
[2019-12-14] MEDS ORDERED: METOPROLOL TART 50 MG TAB ONE (08:13)
[2019-12-14] MEDS ORDERED: METOPROLOL TART 50 MG TAB As Ordered ONE (08:13)
[2019-12-14] MEDS ORDERED: MONTELUKAST 10 MG TAB As Ordered ONE (08:13)
[2019-12-14] MEDS ORDERED: ACETAMINOPHEN TAB 650MG DOSE (2X325MG) ONE ×2 (08:13→21:00)
[2019-12-14] MEDS ORDERED: LOSARTAN 50MG TABLET ONE (08:13)
[2019-12-14] MEDS ORDERED: MONTELUKAST 10 MG TAB ONE (08:13)
[2019-12-14] MEDS ORDERED: HEPARIN SOD (PORCINE) 5000UNITS/ML 1ML VIAL/SYRINGE ONE ×2 (08:13→21:00)
[2019-12-14] MEDS ORDERED: LOSARTAN 50MG TABLET As Ordered ONE (08:14)
[2019-12-14] MEDS ORDERED: HEPARIN SOD (PORCINE) 5000UNITS/ML 1ML VIAL/SYRINGE As Ordered ONE (08:14)
[2019-12-14] MEDS ORDERED: MORPHINE 2 MG/ML 1ML VIAL (J2270) ONE (08:27)
[2019-12-14] MEDS ORDERED: MORPHINE 2 MG/ML 1ML VIAL (J2270) As Ordered ONE (08:27)
[2019-12-14] MEDS ORDERED: MORPHINE 2 MG/ML 1ML VIAL (J2270) IV PRN (11:30)
[2019-12-14] MEDS ORDERED: GLUCAGON INJ 1MG VIAL SC PRN (11:30)
[2019-12-14] MEDS ORDERED: GLUCOSE 4GM CHEW TABLET PO PRN (11:30)
[2019-12-14] MEDS ORDERED: DEXTROSE 50% 50 ML SYRINGE IV PRN (11:30)
[2019-12-14] MEDS ORDERED: TRAD5TAB PO (11:44)
[2019-12-14] MEDS ORDERED: ONDA-83 PO (11:44)
[2019-12-14] MEDS ORDERED: POTA1TAB23 PO (11:44)
[2019-12-14] MEDS ORDERED: PANT-23 PO (11:44)
[2019-12-14] MEDS ORDERED: SUCR1ORA2 PO (11:44)
[2019-12-14] MEDS: HumaLOG INSULIN (NovoLOG) PER UNIT SC SCH ×3 (12:00→20:58)
[2019-12-14] MEDS ORDERED: POTASSIUM CHLORIDE 10% LIQ 20 MEQ/15 ML UDC ONE (21:00)
[2019-12-14] MEDS ORDERED: SIMVASTATIN 20 MG TAB ONE (21:00)
[2019-12-14] MEDS ORDERED: POTASSIUM CHLORIDE 10% LIQ 20 MEQ/15 ML UDC PO ONE (21:00)
[2019-12-14] MEDS ORDERED: SERTRALINE 100 MG TAB ONE (21:00)
[2019-12-14] MEDS: SERTRALINE 100 MG TAB PO SCH (21:04)
[2019-12-14] MEDS: SIMVASTATIN 20 MG TAB PO SCH (21:04)
[2019-12-14] MEDS: HEPARIN SOD (PORCINE) 5000UNITS/ML 1ML VIAL/SYRINGE SQ SCH (21:05)
[2019-12-14] MEDS: ACETAMINOPHEN TAB 650MG DOSE (2X325MG) PO PRN (21:06)
[2019-12-14 21:36] LABS: HEMATOCRIT 37.4 % (36.0-47.0); HEMOGLOBIN 11.9 g/dl (12.0-15.5); MEAN CORPUSCULAR HEMOGLOBIN 27.9 pg (27.0-33.0); MEAN CORPUSCULAR HGB CONC 31.8 g/dl (32.0-36.5); MEAN CORPUSCULAR VOLUME 87.8 fl (80.0-96.0); PLATELET COUNT, AUTOMATED 245 10^3/uL (150-450); RED BLOOD COUNT 4.26 10^6/uL (4.00-5.40); WHITE BLOOD COUNT 6.5 10^3/uL (4.0-10.0)
[2019-12-14 22:00] VITALS: BP 152/65
[2019-12-14] MEDS ORDERED: traMADol 50 MG TAB ONE (23:08)
[2019-12-14] MEDS: SUCRALFATE SUSP 1GM/10ML UD PO SCH (23:10)
[2019-12-14] MEDS: traMADol 50 MG TAB PO PRN (23:10)
[2019-12-15] MEDS: NS 1,000 ML IV SCH ×2 (01:13→18:11)
[2019-12-15] MEDS: SUCRALFATE SUSP 1GM/10ML UD PO SCH ×4 (05:15→23:22)
[2019-12-15 06:00] VITALS: BP 153/66
[2019-12-15 06:53] LABS: HEMATOCRIT 33.1 % (36.0-47.0); HEMOGLOBIN 10.7 g/dl (12.0-15.5); MEAN CORPUSCULAR HEMOGLOBIN 28.2 pg (27.0-33.0); MEAN CORPUSCULAR HGB CONC 32.3 g/dl (32.0-36.5); MEAN CORPUSCULAR VOLUME 87.1 fl (80.0-96.0); PLATELET COUNT, AUTOMATED 229 10^3/uL (150-450); WHITE BLOOD COUNT 5.3 10^3/uL (4.0-10.0)
[2019-12-15 07:25] LABS: BLOOD UREA NITROGEN 9 MG/DL (7-18); CALCIUM LEVEL 8.4 MG/DL (8.8-10.2); CARBON DIOXIDE LEVEL 28 MEQ/L (21-32); CHLORIDE LEVEL 109 MEQ/L (98-107); CREATININE FOR GFR 0.67 MG/DL (0.55-1.30); GLOMERULAR FILTRATION RATE > 60.0 (>39); GLUCOSE, FASTING 86 MG/DL (70-100); POTASSIUM SERUM 3.4 MEQ/L (3.5-5.1); SODIUM LEVEL 144 MEQ/L (136-145)
[2019-12-15] MEDS: HumaLOG INSULIN (NovoLOG) PER UNIT SC SCH ×4 (07:30→20:56)
[2019-12-15] MEDS: HEPARIN SOD (PORCINE) 5000UNITS/ML 1ML VIAL/SYRINGE SQ SCH ×2 (08:16→21:05)
[2019-12-15] MEDS: PANTOPRAZOLE 40MG VIAL (C9113 PER 1) IV SCH (08:40)
[2019-12-15] MEDS: LOSARTAN 50MG TABLET PO SCH (08:40)
[2019-12-15] MEDS: MONTELUKAST 10 MG TAB PO SCH (08:40)
[2019-12-15] MEDS: METOPROLOL SUCC (TopROL XL) 50MG **XL** TAB PO SCH ×2 (08:41→19:04)
[2019-12-15] MEDS ORDERED: KCL 10MEQ/100ML SWI (KRUN) 10 MEQ in IV 1 EA IV STA (11:04)
[2019-12-15] MEDS: KCL 10MEQ/100ML SWI (KRUN) 10 MEQ in IV 1 EA IV SCH ×2 (11:14→12:27)
[2019-12-15] MEDS ORDERED: LABETALOL 100MG/20ML VIAL As Ordered ONE (15:33)
[2019-12-15] MEDS: LABETALOL 100MG/20ML VIAL IV PRN ×5 (15:35→16:15)
[2019-12-15] MEDS ORDERED: ONDANSETRON 4MG/2ML VIAL As Ordered ONE (15:59)
[2019-12-15] MEDS ORDERED: fentaNYL 100 MCG/2 ML INJECTION (J3010) As Ordered ONE (16:00)
[2019-12-15] MEDS: fentaNYL 100 MCG/2 ML INJECTION (J3010) IV PRN ×3 (16:04→16:27)
[2019-12-15] MEDS ORDERED: ONDANSETRON 4MG/2ML VIAL IV PRN (16:15)
[2019-12-15 16:20] VITALS: BP 154/89
--- NOTE | 2019-12-15 17:52 | IPNPDOC ---
Date Seen The patient was seen on 12/15/19. Progress Note SUBJECTIVE: Patient is a 74-year-old female who presented with N/V found to have esophageal stricture. Today, she was taken for dilatation and stent placement by Dr. Schwarz. Patient was seen after the procedure. She was feeling okay. She had some abdominal tenderness, but denies fever/chills, chest pain, shortness of breath, diarrhea, or dysuria. OBJECTIVE PHYSICAL EXAMINATION: VITAL SIGNS: Please see below. GENERAL: Comfortable, in no distress HEENT: Head normocephalic, atraumatic, EOMI, sclera clear CARDIOVASCULAR: Regular rate and rhythm RESPIRATORY: Lungs clear to auscultation bilaterally ABDOMINAL: Normal bowel sounds, tender, soft EXTREMITIES: No pitting edema NEUROLOGICAL: CN 3-12 grossly intact PSYCHOLOGICAL: Anxious LABORATORY DATA, IMAGING STUDIES, MICROBIOLOGY: Please see below. DVT prophylaxis ordered?: Yes ASSESSMENT AND PLAN: This is a 74-year-old female with esophageal stricture who had dilatation and stent placement today. Dr. Schwarz has recommended clear liquid diet for one day followed by soft diet for 2 weeks. She would need endoscopy in 3 months and follow up in 4 to 6 weeks. Pending clearance from GI PROBLEMS: 1. Esophageal Stricture - Dilatation and stent placement today. 2. HTN - Continue current therapy 3. DM - Insulin per protocol 4. Hypokalemia - Replete and follow. Checking magnesium level tomorrow 5. DVT ppx - Heparin DISPOSITION: To remain on med/surg. VS, I&O, 24H, Fishbone Vital Signs/I&O Vital Signs Date Time Temp Pulse Resp B/P (MAP) Pulse Ox O2 Delivery O2 Flow Rate FiO2 12/15/19 16:45 87 18 162/70 (100) 94 Nasal Cannula 3 12/15/19 16:25 98.5 I&O- Last 24 Hours up to 6 AM 12/15/19 06:00 Intake Total 920 ml Output Total 200 ml Balance 720 ml Laboratory Data 24H LABS Laboratory Tests 2 12/15/19 06:25: Nucleated Red Blood Cells % (auto) 0.0, Anion Gap 7L, Glomerular Filtration Rate > 60.0, Calcium Level 8.4L CBC/BMP Laboratory Tests 12/15/19 06:25 JAGDEEP SEBASTIAN DO Dec 15, 2019 17:52
[2019-12-15] MEDS: METOCLOPRAMIDE 10 MG TAB PO PRN (21:05)
[2019-12-15] MEDS: SERTRALINE 100 MG TAB PO SCH (21:05)
[2019-12-15] MEDS: SIMVASTATIN 20 MG TAB PO SCH (21:05)
[2019-12-15 22:00] VITALS: BP 146/58
[2019-12-15 22:12] VITALS: BP 150/60
[2019-12-16] VITALS (8 sets, daily range): BP systolic 140–179; BP diastolic 70–98
[2019-12-16] MEDS: ONDANSETRON 4MG/2ML VIAL IV PRN (04:42)
[2019-12-16] MEDS: SUCRALFATE SUSP 1GM/10ML UD PO SCH ×4 (05:19→23:20)
[2019-12-16 06:54] LABS: HEMATOCRIT 39.2 % (36.0-47.0); MEAN CORPUSCULAR HGB CONC 32.7 g/dl (32.0-36.5); MEAN CORPUSCULAR VOLUME 85.8 fl (80.0-96.0); PLATELET COUNT, AUTOMATED 299 10^3/uL (150-450); RED BLOOD COUNT 4.57 10^6/uL (4.00-5.40)
[2019-12-16 07:02] LABS: HEMOGLOBIN 12.8 g/dl (12.0-15.5)
[2019-12-16 07:24] LABS: BLOOD UREA NITROGEN 8 MG/DL (7-18); CALCIUM LEVEL 8.8 MG/DL (8.8-10.2); CARBON DIOXIDE LEVEL 24 MEQ/L (21-32); CHLORIDE LEVEL 101 MEQ/L (98-107); GLOMERULAR FILTRATION RATE > 60.0 (>39); GLUCOSE, FASTING 177 MG/DL (70-100); MAGNESIUM LEVEL 1.3 MG/DL (1.8-2.4); POTASSIUM SERUM 3.2 MEQ/L (3.5-5.1); SODIUM LEVEL 137 MEQ/L (136-145)
[2019-12-16] MEDS: HumaLOG INSULIN (NovoLOG) PER UNIT SC SCH ×5 (07:30→20:55)
[2019-12-16] MEDS ORDERED: POTASSIUM CHLORIDE 10% LIQ 20 MEQ/15 ML UDC PO ONE (09:15)
[2019-12-16] MEDS: LOSARTAN 50MG TABLET PO SCH (10:05)
[2019-12-16] MEDS: MONTELUKAST 10 MG TAB PO SCH (10:06)
[2019-12-16] MEDS: MAG SULF 1GM/100ML (MAG RUN) 1 GM in IV 1 EA IV SCH ×2 (10:07→12:36)
[2019-12-16] MEDS: HEPARIN SOD (PORCINE) 5000UNITS/ML 1ML VIAL/SYRINGE SQ SCH ×2 (10:07→20:53)
[2019-12-16] MEDS: METOPROLOL TART 50 MG TAB PO SCH ×2 (10:28→20:54)
[2019-12-16] MEDS: LIDOCAINE VISCOUS 2% SOLN 15ML UDC SS SCH ×3 (10:31→20:53)
[2019-12-16] MEDS: MAALOX 30 ML SUSP *UDC PO SCH ×3 (10:31→20:53)
[2019-12-16] MEDS: PANTOPRAZOLE 40MG VIAL (C9113 PER 1) IV SCH (10:41)
[2019-12-16] MEDS ORDERED: PIPERACILLIN/TAZOBACTAM SOD 3.375 GM in D5W MINI-BAG PLUS 50 ML IV SCH (11:00)
--- NOTE | 2019-12-16 12:25 | REPVR ---
PROCEDURE INFORMATION: Exam: CT Head Without Contrast Exam date and time: 12/16/2019 12:09 PM Age: 74 years old Clinical indication: Altered mental status/memory loss; Additional info: AMS TECHNIQUE: Imaging protocol: Computed tomography of the head without contrast. Radiation optimization: All CT scans at this facility use at least one of these dose optimization techniques: automated exposure control; mA and/or kV adjustment per patient size (includes targeted exams where dose is matched to clinical indication); or iterative reconstruction. COMPARISON: CT Head without contrast 02/09/2015 11:22 AM FINDINGS: Brain: There is no acute intracranial hemorrhage, cerebral edema, or midline shift. Chronic microvascular ischemic changes are seen in the periventricular white matter. Age-related cerebral and cerebellar volume loss is present. Ventricles: No hydrocephalus. Bones/joints: No acute fracture. Sinuses: There is no acute sinusitis. Mastoid air cells: The mastoid air cells are clear. Orbits: The included orbital structures are unremarkable. Vasculature: Atherosclerotic calcifications are seen involving the cavernous carotid arteries. Soft tissues: Unremarkable. IMPRESSION: 1. No acute intracranial abnormality. 2. Atrophy and chronic deep white matter ischemic changes. Electronically signed by: Andrade Hyatt On 12/16/2019 12:25:47 PM
[2019-12-16] MEDS: PIPERACILLIN/TAZOBACTAM SOD 3.375 GM in D5W MINI-BAG PLUS 50 ML IV SCH ×2 (13:58→20:53)
[2019-12-16] MEDS: NS 1,000 ML IV SCH (18:27)
--- NOTE | 2019-12-16 19:13 | IPNPDOC ---
Text Note Date of Service The patient was seen on 12/16/19. NOTE SUBJECTIVE: Pt states she still has Nausea; unable to tolerate PO. Had vomiting yesterday, cough today. OBJECTIVE PHYSICAL EXAMINATION: VITAL SIGNS: Please see below. GENERAL: Comfortable, in no distress HEENT: Head normocephalic, atraumatic, EOMI, sclera clear CARDIOVASCULAR: Regular rate and rhythm RESPIRATORY: Fine crackles right base. No wheezing/rhonchi. ABDOMINAL: Normal bowel sounds, tender, soft EXTREMITIES: No pitting edema NEUROLOGICAL: CN 3-12 grossly intact PSYCHOLOGICAL: Anxious LABORATORY DATA, IMAGING STUDIES, MICROBIOLOGY: Please see below. DVT prophylaxis ordered?: Yes ASSESSMENT AND PLAN: This is a 74-year-old female with esophageal stricture who had dilatation and stent placement today. Dr. Schwarz has recommended clear liquid diet for one day followed by soft diet for 2 weeks. She would need endoscopy in 3 months and follow up in 4 to 6 weeks. Pending clearance from GI PROBLEMS: 1. Esophageal Stricture - Dilatation and stent placement 12/14 - Dr. Schwarz notes n/v typical post op- stent takes 48hr to dilate 2. Presumed aspiration PNA -Leukocytosis 22 - started on zosyn - F/u bld cx 3. HTN - Continue current therapy 4. DM - Insulin per protocol 5. Hypokalemia - Replete and follow. Checking magnesium level tomorrow DVT ppx - Heparin VS,Fishbone, I+O VS, Fishbone, I+O Laboratory Tests 12/16/19 06:15 Vital Signs Date Time Temp Pulse Resp B/P (MAP) Pulse Ox O2 Delivery O2 Flow Rate FiO2 12/16/19 18:00 98.5 90 18 156/81 (106) 91 Room Air 12/15/19 22:40 2.0 I&O- Last 24 Hours up to 6 AM 12/16/19 06:00 Intake Total 1100 ml Output Total 250 ml Balance 850 ml REILLY HEAD MD Dec 16, 2019 19:13
[2019-12-16] MEDS: SERTRALINE 100 MG TAB PO SCH (20:53)
[2019-12-16] MEDS: SIMVASTATIN 20 MG TAB PO SCH (20:53)
[2019-12-16] MEDS ORDERED: LOSARTAN 50MG TABLET PO ONE (23:15)
[2019-12-16] MEDS: METOCLOPRAMIDE 10 MG TAB PO PRN (23:20)
[2019-12-17 01:22] VITALS: BP_SYST 171; BP_SYST 180; BP_DIAS 94; BP_DIAS 95
[2019-12-17] MEDS ORDERED: **hydrALAZINE HCL** 25 MG TAB PO ONE (01:30)
[2019-12-17] MEDS: PIPERACILLIN/TAZOBACTAM SOD 3.375 GM in D5W MINI-BAG PLUS 50 ML IV SCH ×4 (01:35→19:59)
[2019-12-17 02:15] VITALS: BP 167/90
[2019-12-17] MEDS: NS 1,000 ML IV SCH (05:14)
[2019-12-17] MEDS: SUCRALFATE SUSP 1GM/10ML UD PO SCH ×4 (05:14→23:03)
[2019-12-17 06:00] VITALS: BP 168/88
[2019-12-17] MEDS: **hydrALAZINE** 10 MG TAB PO SCH ×3 (06:00→21:36)
[2019-12-17 06:50] LABS: HEMATOCRIT 39.2 % (36.0-47.0); HEMOGLOBIN 12.9 g/dl (12.0-15.5); MEAN CORPUSCULAR HEMOGLOBIN 28.2 pg (27.0-33.0); MEAN CORPUSCULAR HGB CONC 32.9 g/dl (32.0-36.5); MEAN CORPUSCULAR VOLUME 85.6 fl (80.0-96.0); PLATELET COUNT, AUTOMATED 280 10^3/uL (150-450); RED BLOOD COUNT 4.58 10^6/uL (4.00-5.40); WHITE BLOOD COUNT 16.2 10^3/uL (4.0-10.0)
[2019-12-17 08:45] LABS: BLOOD UREA NITROGEN 8 MG/DL (7-18); CALCIUM LEVEL 8.6 MG/DL (8.8-10.2); CARBON DIOXIDE LEVEL 29 MEQ/L (21-32); CHLORIDE LEVEL 105 MEQ/L (98-107); CREATININE FOR GFR 0.89 MG/DL (0.55-1.30); GLOMERULAR FILTRATION RATE > 60.0 (>39); GLUCOSE, FASTING 157 MG/DL (70-100); POTASSIUM SERUM 3.5 MEQ/L (3.5-5.1); SODIUM LEVEL 142 MEQ/L (136-145)
[2019-12-17] MEDS: MAALOX 30 ML SUSP *UDC PO SCH ×5 (09:00→19:55)
[2019-12-17] MEDS: LIDOCAINE VISCOUS 2% SOLN 15ML UDC SS SCH ×4 (09:00→21:43)
[2019-12-17 09:21] LABS: MAGNESIUM LEVEL 1.8 MG/DL (1.8-2.4)
[2019-12-17] MEDS: LOSARTAN 50MG TABLET PO SCH (09:23)
[2019-12-17] MEDS: HumaLOG INSULIN (NovoLOG) PER UNIT SC SCH ×4 (09:23→21:00)
[2019-12-17] MEDS: amLODIPine 5 MG TAB PO SCH (09:24)
[2019-12-17] MEDS: HEPARIN SOD (PORCINE) 5000UNITS/ML 1ML VIAL/SYRINGE SQ SCH ×2 (09:24→19:58)
[2019-12-17] MEDS: MONTELUKAST 10 MG TAB PO SCH (09:25)
[2019-12-17] MEDS: METOPROLOL TART 50 MG TAB PO SCH ×2 (09:25→21:34)
[2019-12-17] MEDS: PANTOPRAZOLE 40MG VIAL (C9113 PER 1) IV SCH (09:25)
[2019-12-17] MEDS: ONDANSETRON 4MG/2ML VIAL IV PRN ×2 (09:30→19:57)
[2019-12-17 10:00] VITALS: BP 115/78
--- NOTE | 2019-12-17 10:42 | IPNPDOC ---
Text Note Date of Service The patient was seen on 12/17/19. NOTE SUBJECTIVE: Pt has nausea, no vomiting. Abd pain improved. Mild non productive cough OBJECTIVE PHYSICAL EXAMINATION: VITAL SIGNS: Please see below. GENERAL: Comfortable, in no distress HEENT: Head normocephalic, atraumatic, EOMI, sclera clear CARDIOVASCULAR: Regular rate and rhythm RESPIRATORY: Fine crackles right base. No wheezing/rhonchi. ABDOMINAL: Normal bowel sounds, tender, soft EXTREMITIES: No pitting edema NEUROLOGICAL: CN 3-12 grossly intact PSYCHOLOGICAL: Anxious LABORATORY DATA, IMAGING STUDIES, MICROBIOLOGY: Please see below. ASSESSMENT AND PLAN: This is a 74-year-old female with esophageal stricture who had dilatation and stent placement today. Dr. Schwarz has recommended clear liquid diet for one day followed by soft diet for 2 weeks. She would need endoscopy in 3 months and follow up in 4 to 6 weeks. Pending clearance from GI PROBLEMS: 1. Esophageal Stricture - Dilatation and stent placement 12/14 - Dr. Schwarz notes n/v typical post op- stent takes 48hr to dilate - On clears and tolerating thus far 2. Presumed aspiration PNA -Leukocytosis improving - Cont zosyn - F/u bld cx 3. HTN - Continue current therapy - Add amlodipine 5mg po daily as BP uncontrolled 4. DM - Insulin per protocol 5. Hypokalemia - Replete and follow. Checking magnesium level tomorrow DVT ppx - Heparin VS,Fishbone, I+O VS, Fishbone, I+O Laboratory Tests 12/17/19 06:00 Vital Signs Date Time Temp Pulse Resp B/P (MAP) Pulse Ox O2 Delivery O2 Flow Rate FiO2 12/17/19 09:24 87 159/70 12/17/19 06:00 98.1 18 100 Room Air 12/15/19 22:40 2.0 I&O- Last 24 Hours up to 6 AM 12/17/19 05:59 Intake Total 400 ml Output Total 0 ml Balance 400 ml REILLY HEAD MD Dec 17, 2019 10:41
[2019-12-17] MEDS ORDERED: POTASSIUM CHLORIDE 10% LIQ 20 MEQ/15 ML UDC PO ONE (11:00)
[2019-12-17 14:00] VITALS: BP 153/72
[2019-12-17] MEDS: traMADol 50 MG TAB PO PRN (14:19)
[2019-12-17] MEDS: SERTRALINE 100 MG TAB PO SCH (20:00)
[2019-12-17] MEDS: SIMVASTATIN 20 MG TAB PO SCH (20:00)
[2019-12-17 22:00] VITALS: BP 160/96
[2019-12-18] MEDS: PIPERACILLIN/TAZOBACTAM SOD 3.375 GM in D5W MINI-BAG PLUS 50 ML IV SCH ×4 (01:23→20:51)
[2019-12-18] MEDS: SUCRALFATE SUSP 1GM/10ML UD PO SCH ×3 (05:12→17:52)
[2019-12-18] MEDS: **hydrALAZINE** 10 MG TAB PO SCH ×3 (05:13→21:08)
[2019-12-18 06:00] VITALS: BP 135/71
[2019-12-18] MEDS: PANTOPRAZOLE 40MG VIAL (C9113 PER 1) IV SCH (07:54)
[2019-12-18] MEDS: MAALOX 30 ML SUSP *UDC PO SCH ×3 (07:55→21:00)
[2019-12-18] MEDS: LIDOCAINE VISCOUS 2% SOLN 15ML UDC SS SCH ×3 (07:56→21:00)
[2019-12-18] MEDS: LOSARTAN 50MG TABLET PO SCH (07:57)
[2019-12-18] MEDS: amLODIPine 5 MG TAB PO SCH (07:58)
[2019-12-18] MEDS: MONTELUKAST 10 MG TAB PO SCH (07:58)
[2019-12-18] MEDS: METOPROLOL TART 50 MG TAB PO SCH ×2 (07:58→21:00)
[2019-12-18] MEDS: HumaLOG INSULIN (NovoLOG) PER UNIT SC SCH ×4 (08:00→21:00)
[2019-12-18] MEDS: HEPARIN SOD (PORCINE) 5000UNITS/ML 1ML VIAL/SYRINGE SQ SCH ×2 (08:01→20:52)
[2019-12-18 08:02] LABS: HEMATOCRIT 39.9 % (36.0-47.0); HEMOGLOBIN 12.6 g/dl (12.0-15.5); MEAN CORPUSCULAR HEMOGLOBIN 27.6 pg (27.0-33.0); MEAN CORPUSCULAR HGB CONC 31.6 g/dl (32.0-36.5); MEAN CORPUSCULAR VOLUME 87.5 fl (80.0-96.0); PLATELET COUNT, AUTOMATED 256 10^3/uL (150-450); RED BLOOD COUNT 4.56 10^6/uL (4.00-5.40); WHITE BLOOD COUNT 15.2 10^3/uL (4.0-10.0)
[2019-12-18 09:07] LABS: BLOOD UREA NITROGEN 8 MG/DL (7-18); CALCIUM LEVEL 8.6 MG/DL (8.8-10.2); CARBON DIOXIDE LEVEL 30 MEQ/L (21-32); CHLORIDE LEVEL 104 MEQ/L (98-107); CREATININE FOR GFR 0.72 MG/DL (0.55-1.30); GLOMERULAR FILTRATION RATE > 60.0 (>39); GLUCOSE, FASTING 148 MG/DL (70-100); POTASSIUM SERUM 3.2 MEQ/L (3.5-5.1); SODIUM LEVEL 140 MEQ/L (136-145)
[2019-12-18] MEDS ORDERED: POTASSIUM CHLORIDE 10% LIQ 20 MEQ/15 ML UDC PO ONE (13:00)
[2019-12-18] MEDS ORDERED: MAG SULF 1GM/100ML (MAG RUN) 1 GM in IV 1 EA IV ONE (13:00)
--- NOTE | 2019-12-18 13:33 | REPVR ---
PROCEDURE INFORMATION: Exam: CT Chest Without Contrast Exam date and time: 12/18/2019 12:54 PM Age: 74 years old Clinical indication: Chest pain; Type not specified; Additional info: Epigastric/chest discomfort S/P esophageal stent placement TECHNIQUE: Imaging protocol: Computed tomography of the chest without contrast. 3D rendering (Not supervised by radiologist): MIP and/or 3D reconstructed images were created by the technologist. Radiation optimization: All CT scans at this facility use at least one of these dose optimization techniques: automated exposure control; mA and/or kV adjustment per patient size (includes targeted exams where dose is matched to clinical indication); or iterative reconstruction. COMPARISON: CT Chest without contrast 11/30/2017 1:56 PM FINDINGS: Lungs: Mild left base atelectasis is seen in this is increased. Pleural space: There is now a small right effusion and a trace left effusion. Minimal apical pleural thickening is noted. Heart: Unremarkable. No cardiomegaly. No pericardial effusion. Mediastinal space: There is a esophageal stent which is new with increased soft tissue surrounding the esophagus and I do not know if this is fibrosis or reaction to the stent or neoplastic. Pulmonary arteries: There is a prominent right left hilum and I do not if this is neoplastic or pulmonary arterial. Configuration does appear similar in the previous noncontrast exam. Aorta: Unremarkable. No aortic aneurysm. Lymph nodes: There is an enlarged pretracheal lymph node measuring 16 x 17 mm. This is stable. Adrenals: There is a right adrenal mass measuring 17 x 24 mm which is increased from 12 x 22 mm previously. This has Hounsfield its 5 suspicious for an adenoma. Kidneys and ureters: Incompletely seen superior pole right renal lesion is identified 33 x 28 mm which characterized is not completely seen. Cortical thinning is seen medially and posteriorly in the left upper kidney. Stomach and bowel: There is increased density within the stent which could be food stuffs versus mass. Bones/joints: Diffuse spinal spurring is identified. Superior endplate Schmorl's node is noted at L2. Soft tissues: Unremarkable. IMPRESSION: 1. There is now a esophageal stent. There is increased soft tissue surrounding the stent as above. 2. There is increased density within the stent as above. 3. Prominent bilateral shawn. 4. Stable pretracheal lymph node. 5. Bilateral effusions with slightly worsening left base atelectatic changes or scarring. 6. Increasing size of a right adrenal lesion however, this has Hounsfield units consistent with an adenoma. 7. Incompletely seen right renal cyst which cannot characterized. Electronically signed by: Marco Chapman On 12/18/2019 13:33:17 PM
[2019-12-18 14:00] VITALS: BP 133/62
[2019-12-18] MEDS ORDERED: POTASSIUM CHLORIDE 10 MEQ SR TABLET PO ONE (14:30)
[2019-12-18] MEDS ORDERED: amLODIPine 5 MG TAB PO ONE (15:00)
--- NOTE | 2019-12-18 15:33 | IPNPDOC ---
Text Note Date of Service The patient was seen on 12/18/19. NOTE SUBJECTIVE: Pt notes nausea improved. Had epigastric pain. No cough OBJECTIVE PHYSICAL EXAMINATION: VITAL SIGNS: Please see below. GENERAL: Comfortable, in no distress HEENT: Head normocephalic, atraumatic, EOMI, sclera clear CARDIOVASCULAR: Regular rate and rhythm RESPIRATORY: Fine crackles right base. No wheezing/rhonchi. ABDOMINAL: Normal bowel sounds, tender, soft EXTREMITIES: No pitting edema NEUROLOGICAL: CN 3-12 grossly intact PSYCHOLOGICAL: Anxious LABORATORY DATA, IMAGING STUDIES, MICROBIOLOGY: Please see below. ASSESSMENT AND PLAN: This is a 74-year-old female with esophageal stricture who had dilatation and stent placement today. Dr. Schwarz has recommended clear liquid diet for one day followed by soft diet for 2 weeks. She would need endoscopy in 3 months and follow up in 4 to 6 weeks. Pending clearance from GI PROBLEMS: 1. Esophageal Stricture - Dilatation and stent placement 12/14 - Dr. Schwarz notes n/v typical post op- stent takes 48hr to dilate - Now tolerating full liquid diet; advance to pureed as tolerated per Dr. Schwarz. - Dr. Schwarz notes microperforation from stent placement could have also caused leukocytosis and conservative management is recommended. 2. Presumed aspiration PNA -Leukocytosis improving - Cont zosyn - F/u bld cx 3. HTN - Continue current therapy - increase amlodipine to 10mg po daily 4. DM - Insulin per protocol 5. Hypokalemia - Replete and follow. DVT ppx - Heparin VS,Fishbone, I+O VS, Fishbone, I+O Laboratory Tests 12/18/19 07:05 Vital Signs Date Time Temp Pulse Resp B/P (MAP) Pulse Ox O2 Delivery O2 Flow Rate FiO2 12/18/19 15:00 84 170/70 12/18/19 14:00 98.6 16 93 Room Air 12/18/19 06:00 1.0 I&O- Last 24 Hours up to 6 AM 12/18/19 06:00 Intake Total 680 ml Output Total 0 ml Balance 680 ml REILLY HEAD MD Dec 18, 2019 15:33
[2019-12-18] MEDS: SERTRALINE 100 MG TAB PO SCH (20:52)
[2019-12-18] MEDS: SIMVASTATIN 20 MG TAB PO SCH (20:52)
[2019-12-18 22:00] VITALS: BP 144/74
[2019-12-18 23:23] LABS: ALBUMIN 2.5 GM/DL (3.2-5.2); ALT/SGPT 11 U/L (12-78); BILIRUBIN,TOTAL 0.5 MG/DL (0.2-1.0); BLOOD UREA NITROGEN 8 MG/DL (7-18); CALCIUM LEVEL 8.4 MG/DL (8.8-10.2); CARBON DIOXIDE LEVEL 29 MEQ/L (21-32); CHLORIDE LEVEL 108 MEQ/L (98-107); CREATININE FOR GFR 0.71 MG/DL (0.55-1.30); GLOMERULAR FILTRATION RATE > 60.0 (>39); GLUCOSE, FASTING 91 MG/DL (70-100); POTASSIUM SERUM 3.4 MEQ/L (3.5-5.1); SODIUM LEVEL 142 MEQ/L (136-145); TOTAL PROTEIN 5.5 GM/DL (6.4-8.2)
[2019-12-19] MEDS: SUCRALFATE SUSP 1GM/10ML UD PO SCH ×5 (00:30→23:48)
[2019-12-19] MEDS: PIPERACILLIN/TAZOBACTAM SOD 3.375 GM in D5W MINI-BAG PLUS 50 ML IV SCH ×4 (01:56→21:06)
[2019-12-19] MEDS: **hydrALAZINE** 10 MG TAB PO SCH (05:46)
[2019-12-19 06:00] VITALS: BP 108/58
[2019-12-19] MEDS: HumaLOG INSULIN (NovoLOG) PER UNIT SC SCH ×4 (07:30→21:00)
[2019-12-19 07:38] LABS: HEMATOCRIT 39.1 % (36.0-47.0); HEMOGLOBIN 12.3 g/dl (12.0-15.5); MEAN CORPUSCULAR HEMOGLOBIN 28.1 pg (27.0-33.0); MEAN CORPUSCULAR HGB CONC 31.5 g/dl (32.0-36.5); MEAN CORPUSCULAR VOLUME 89.3 fl (80.0-96.0); PLATELET COUNT, AUTOMATED 241 10^3/uL (150-450); RED BLOOD COUNT 4.38 10^6/uL (4.00-5.40); WHITE BLOOD COUNT 9.6 10^3/uL (4.0-10.0)
[2019-12-19 07:59] LABS: MAGNESIUM LEVEL 1.9 MG/DL (1.8-2.4)
[2019-12-19 09:26] LABS: BLOOD UREA NITROGEN 11 MG/DL (7-18); CALCIUM LEVEL 8.5 MG/DL (8.8-10.2); CARBON DIOXIDE LEVEL 30 MEQ/L (21-32); CHLORIDE LEVEL 104 MEQ/L (98-107); CREATININE FOR GFR 0.69 MG/DL (0.55-1.30); GLOMERULAR FILTRATION RATE > 60.0 (>39); GLUCOSE, FASTING 114 MG/DL (70-100); POTASSIUM SERUM 3.3 MEQ/L (3.5-5.1); SODIUM LEVEL 143 MEQ/L (136-145)
[2019-12-19] MEDS: PANTOPRAZOLE 40MG VIAL (C9113 PER 1) IV SCH (09:43)
[2019-12-19] MEDS: MAALOX 30 ML SUSP *UDC PO SCH ×3 (09:43→21:07)
[2019-12-19] MEDS: amLODIPine 10 MG TAB PO SCH (09:43)
[2019-12-19] MEDS: LOSARTAN 50MG TABLET PO SCH (09:43)
[2019-12-19] MEDS: METOPROLOL TART 50 MG TAB PO SCH ×2 (09:44→21:09)
[2019-12-19] MEDS: MONTELUKAST 10 MG TAB PO SCH (09:44)
[2019-12-19] MEDS: HEPARIN SOD (PORCINE) 5000UNITS/ML 1ML VIAL/SYRINGE SQ SCH ×2 (09:45→21:10)
[2019-12-19] MEDS: LIDOCAINE VISCOUS 2% SOLN 15ML UDC SS SCH ×3 (10:42→21:08)
--- NOTE | 2019-12-19 13:23 | IPNPDOC ---
Text Note Date of Service The patient was seen on 12/19/19. NOTE SUBJECTIVE: Has has occasional epigastric pain and nausea; however able to sw allow and tolerate PO. Discussed with Dr. Schwarz, notes pt will have pain for some time; recc ensure BID as well. OBJECTIVE PHYSICAL EXAMINATION: VITAL SIGNS: Please see below. GENERAL: Comfortable, in no distress HEENT: Head normocephalic, atraumatic, EOMI, sclera clear CARDIOVASCULAR: Regular rate and rhythm RESPIRATORY: Fine crackles right base. No wheezing/rhonchi. ABDOMINAL: Normal bowel sounds, tender, soft EXTREMITIES: No pitting edema NEUROLOGICAL: CN 3-12 grossly intact PSYCHOLOGICAL: Anxious LABORATORY DATA, IMAGING STUDIES, MICROBIOLOGY: Please see below. ASSESSMENT AND PLAN: This is a 74-year-old female with esophageal stricture who had dilatation and stent placement today. Dr. Schwarz has recommended clear liquid diet for one day followed by soft diet for 2 weeks. She would need endoscopy in 3 months and follow up in 4 to 6 weeks. Pending clearance from GI PROBLEMS: 1. Esophageal Stricture - Dilatation and stent placement 12/14 - Dr. Schwarz notes n/v typical post op- stent takes 48hr to dilate - Now tolerating full liquid diet; advance to pureed as tolerated per Dr. Schwarz. - Dr. Schwarz notes microperforation from stent placement could have also caused leukocytosis and conservative management is recommended. 2. Presumed aspiration PNA -Leukocytosis improving - Cont zosyn - F/u bld cx 3. HTN - Continue current therapy - increase amlodipine to 10mg po daily 4. DM - Insulin per protocol 5. Hypokalemia - Replete and follow. DVT ppx - Heparin PT consulted; likely needs rehab VS,Fishbone, I+O VS, Fishbone, I+O Laboratory Tests 12/19/19 06:05 Vital Signs Date Time Temp Pulse Resp B/P (MAP) Pulse Ox O2 Delivery O2 Flow Rate FiO2 12/19/19 09:44 89 123/64 12/19/19 06:00 97.8 18 93 12/18/19 21:00 0.5 12/18/19 14:00 Room Air I&O- Last 24 Hours up to 6 AM 12/19/19 06:00 Intake Total 500 ml Output Total 0 ml Balance 500 ml REILLY HEAD MD Dec 19, 2019 13:23
[2019-12-19 14:00] VITALS: BP 110/70
[2019-12-19 19:31] LABS: HEMATOCRIT 36.9 % (36.0-47.0); HEMOGLOBIN 12.2 g/dl (12.0-15.5); MEAN CORPUSCULAR HEMOGLOBIN 28.8 pg (27.0-33.0); RED BLOOD COUNT 4.24 10^6/uL (4.00-5.40); WHITE BLOOD COUNT 6.7 10^3/uL (4.0-10.0)
[2019-12-19 19:32] LABS: MEAN CORPUSCULAR HGB CONC 33.1 g/dl (32.0-36.5); PLATELET COUNT, AUTOMATED 253 10^3/uL (150-450)
[2019-12-19 19:40] LABS: INR 1.03; PARTIAL THROMBOPLASTIN TIME 24.7 SECONDS (25.0-38.4); PROTHROMBIN TIME 13.7 SECONDS (11.8-14.0)
[2019-12-19] MEDS: SERTRALINE 100 MG TAB PO SCH (21:09)
[2019-12-19] MEDS: SIMVASTATIN 20 MG TAB PO SCH (21:09)
[2019-12-19] MEDS: traMADol 50 MG TAB PO PRN (21:10)
[2019-12-19] MEDS: ONDANSETRON 4MG/2ML VIAL IV PRN (21:10)
[2019-12-19 22:00] VITALS: BP 150/79
[2019-12-20] MEDS: PIPERACILLIN/TAZOBACTAM SOD 3.375 GM in D5W MINI-BAG PLUS 50 ML IV SCH (02:10)
[2019-12-20] MEDS: SUCRALFATE SUSP 1GM/10ML UD PO SCH ×4 (05:29→23:41)
[2019-12-20 06:00] VITALS: BP 151/81
[2019-12-20 06:21] LABS: HEMATOCRIT 36.4 % (36.0-47.0); HEMOGLOBIN 11.6 g/dl (12.0-15.5); MEAN CORPUSCULAR HEMOGLOBIN 28.4 pg (27.0-33.0); MEAN CORPUSCULAR HGB CONC 31.9 g/dl (32.0-36.5); PLATELET COUNT, AUTOMATED 235 10^3/uL (150-450); RED BLOOD COUNT 4.09 10^6/uL (4.00-5.40); WHITE BLOOD COUNT 8.1 10^3/uL (4.0-10.0)
[2019-12-20 06:52] LABS: BLOOD UREA NITROGEN 12 MG/DL (7-18); CALCIUM LEVEL 8.4 MG/DL (8.8-10.2); CARBON DIOXIDE LEVEL 33 MEQ/L (21-32); CHLORIDE LEVEL 104 MEQ/L (98-107); CREATININE FOR GFR 0.71 MG/DL (0.55-1.30); GLOMERULAR FILTRATION RATE > 60.0 (>39); GLUCOSE, FASTING 111 MG/DL (70-100); MAGNESIUM LEVEL 1.7 MG/DL (1.8-2.4); POTASSIUM SERUM 3.2 MEQ/L (3.5-5.1); SODIUM LEVEL 144 MEQ/L (136-145)
[2019-12-20] MEDS ORDERED: POTASSIUM CHLORIDE 10 MEQ SR TABLET PO ONE ×2 (07:30→11:30)
[2019-12-20] MEDS ORDERED: NS 1,000 ML IV SCH (07:30)
[2019-12-20] MEDS ORDERED: POTASSIUM CHLORIDE 10% LIQ 20 MEQ/15 ML UDC PO ONE ×2 (07:30→11:00)
[2019-12-20] MEDS ORDERED: MAG SULF 1GM/100ML (MAG RUN) 1 GM in IV 1 EA IV ONE (08:00)
[2019-12-20] MEDS: HumaLOG INSULIN (NovoLOG) PER UNIT SC SCH ×4 (09:32→21:00)
--- NOTE | 2019-12-20 11:05 | IPNPDOC ---
Text Note Date of Service The patient was seen on 12/20/19. NOTE SUBJECTIVE: Has has occasional epigastric pain which has improved. She is ivette erating PO. She wants to advance her diet, but was encouraged to continue the pureed diet that was recommended by Dr. Schwarz; as well as ensure BID. OBJECTIVE PHYSICAL EXAMINATION: VITAL SIGNS: Please see below. GENERAL: Comfortable, in no distress HEENT: Head normocephalic, atraumatic, EOMI, sclera clear CARDIOVASCULAR: Regular rate and rhythm RESPIRATORY: Fine crackles right base. No wheezing/rhonchi. ABDOMINAL: Normal bowel sounds, tender, soft EXTREMITIES: No pitting edema NEUROLOGICAL: CN 3-12 grossly intact LABORATORY DATA, IMAGING STUDIES, MICROBIOLOGY: Please see below. ASSESSMENT AND PLAN: This is a 74-year-old female with esophageal stricture who had dilatation and stent placement today. Dr. Schwarz has recommended clear liquid diet for one day followed by soft diet for 2 weeks. She would need endoscopy in 3 months and follow up in 4 to 6 weeks. Pending clearance from GI PROBLEMS: 1. Esophageal Stricture - Dilatation and stent placement 12/14 - Dr. Schwarz notes n/v typical post op- stent takes 48hr to dilate - Now tolerating full liquid diet; advance to pureed as tolerated per Dr. Schwarz. - Dr. Schwarz notes microperforation from stent placement could have also caused leukocytosis and conservative management is recommended. - ST consult 2. Presumed aspiration PNA -Leukocytosis improved - Change zosyn to augmentin - Bld cx negative 3. HTN - Continue current therapy -Cont amlodipine to 10mg po daily 4. DM - Insulin per protocol 5. Hypokalemia - Replete and follow. DVT ppx - Heparin PT consulted; likely needs rehab. Will d/c when rehab spot opens. VS,Fishbone, I+O VS, Fishbone, I+O Laboratory Tests 12/20/19 05:30 Vital Signs Date Time Temp Pulse Resp B/P (MAP) Pulse Ox O2 Delivery O2 Flow Rate FiO2 12/20/19 06:00 97.6 63 20 151/81 (104) 96 12/19/19 14:00 Room Air 12/18/19 21:00 0.5 I&O- Last 24 Hours up to 6 AM 8/24/20 06:00 Intake Total 730 ml Output Total 400 ml Balance 330 ml REILLY HEAD MD Dec 20, 2019 11:05
[2019-12-20] MEDS ORDERED: DOCUSATE SOD LIQ 100MG/10ML UDC GT SCH (11:30)
[2019-12-20] MEDS: METOPROLOL TART 50 MG TAB PO SCH ×2 (11:56→21:16)
[2019-12-20] MEDS: amLODIPine 10 MG TAB PO SCH (11:57)
[2019-12-20] MEDS: LOSARTAN 50MG TABLET PO SCH (12:00)
[2019-12-20] MEDS: MIRALAX *UNIT DOSE* 17GM PACKET PO SCH (12:01)
[2019-12-20] MEDS: AUGMENTIN 875 MG TAB PO SCH ×2 (12:04→21:15)
[2019-12-20] MEDS: MONTELUKAST 10 MG TAB PO SCH (12:06)
[2019-12-20] MEDS: MAALOX 30 ML SUSP *UDC PO SCH ×3 (12:09→21:15)
[2019-12-20] MEDS: HEPARIN SOD (PORCINE) 5000UNITS/ML 1ML VIAL/SYRINGE SQ SCH ×2 (12:12→21:16)
[2019-12-20] MEDS: LIDOCAINE VISCOUS 2% SOLN 15ML UDC SS SCH ×3 (12:20→21:14)
[2019-12-20] MEDS: PANTOPRAZOLE 40MG VIAL (C9113 PER 1) IV SCH (12:22)
[2019-12-20] MEDS ORDERED: DOCUSATE SOD LIQ 100MG/10ML UDC PO SCH (12:49)
[2019-12-20 14:00] VITALS: BP 138/68
[2019-12-20] MEDS: SERTRALINE 100 MG TAB PO SCH (21:15)
[2019-12-20] MEDS: SIMVASTATIN 20 MG TAB PO SCH (21:15)
[2019-12-20 22:00] VITALS: BP 124/58
[2019-12-21] MEDS: SUCRALFATE SUSP 1GM/10ML UD PO SCH ×4 (05:03→23:26)
[2019-12-21 06:00] VITALS: BP 145/71
[2019-12-21 06:43] LABS: HEMATOCRIT 38.1 % (36.0-47.0); HEMOGLOBIN 12.3 g/dl (12.0-15.5); MEAN CORPUSCULAR HEMOGLOBIN 28.6 pg (27.0-33.0); MEAN CORPUSCULAR HGB CONC 32.3 g/dl (32.0-36.5); MEAN CORPUSCULAR VOLUME 88.6 fl (80.0-96.0); PLATELET COUNT, AUTOMATED 257 10^3/uL (150-450); WHITE BLOOD COUNT 7.1 10^3/uL (4.0-10.0)
[2019-12-21 07:16] LABS: BLOOD UREA NITROGEN 10 MG/DL (7-18); CALCIUM LEVEL 8.7 MG/DL (8.8-10.2); CARBON DIOXIDE LEVEL 30 MEQ/L (21-32); CHLORIDE LEVEL 106 MEQ/L (98-107); CREATININE FOR GFR 0.65 MG/DL (0.55-1.30); GLOMERULAR FILTRATION RATE > 60.0 (>39); GLUCOSE, FASTING 92 MG/DL (70-100); MAGNESIUM LEVEL 1.8 MG/DL (1.8-2.4); POTASSIUM SERUM 3.6 MEQ/L (3.5-5.1); SODIUM LEVEL 143 MEQ/L (136-145)
[2019-12-21] MEDS: HumaLOG INSULIN (NovoLOG) PER UNIT SC SCH ×4 (07:30→20:00)
[2019-12-21] MEDS: PANTOPRAZOLE 40MG VIAL (C9113 PER 1) IV SCH (09:27)
[2019-12-21] MEDS: AUGMENTIN 875 MG TAB PO SCH ×2 (09:27→20:38)
[2019-12-21] MEDS: LOSARTAN 50MG TABLET PO SCH (09:27)
[2019-12-21] MEDS: HEPARIN SOD (PORCINE) 5000UNITS/ML 1ML VIAL/SYRINGE SQ SCH ×2 (09:27→20:39)
[2019-12-21] MEDS: MONTELUKAST 10 MG TAB PO SCH (09:27)
[2019-12-21] MEDS: METOPROLOL TART 50 MG TAB PO SCH ×2 (09:28→20:38)
[2019-12-21] MEDS: MIRALAX *UNIT DOSE* 17GM PACKET PO SCH (09:28)
[2019-12-21] MEDS: amLODIPine 10 MG TAB PO SCH (09:28)
[2019-12-21] MEDS: LIDOCAINE VISCOUS 2% SOLN 15ML UDC SS SCH ×3 (09:30→20:38)
[2019-12-21] MEDS: MAALOX 30 ML SUSP *UDC PO SCH ×3 (09:31→20:39)
--- NOTE | 2019-12-21 12:01 | IPNPDOC ---
Text Note Date of Service The patient was seen on 12/21/19. NOTE SUBJECTIVE: Pt tolerated pureed diet. No acute changes overnight. OBJECTIVE PHYSICAL EXAMINATION: VITAL SIGNS: Please see below. GENERAL: Comfortable, in no distress HEENT: Head normocephalic, atraumatic, EOMI, sclera clear CARDIOVASCULAR: Regular rate and rhythm RESPIRATORY: Fine crackles right base. No wheezing/rhonchi. ABDOMINAL: Normal bowel sounds, tender, soft EXTREMITIES: No pitting edema NEUROLOGICAL: CN 3-12 grossly intact PSYCHOLOGICAL: Anxious LABORATORY DATA, IMAGING STUDIES, MICROBIOLOGY: Please see below. ASSESSMENT AND PLAN: This is a 74-year-old female with esophageal stricture who had dilatation and stent placement today. Dr. Schwarz has recommended clear liquid diet for one day followed by soft diet for 2 weeks. She would need endoscopy in 3 months and follow up in 4 to 6 weeks. Pending clearance from GI PROBLEMS: 1. Esophageal Stricture - Dilatation and stent placement 12/14 - Dr. Schwarz notes n/v typical post op- stent takes 48hr to dilate - Now tolerating full liquid diet; advance to pureed as tolerated per Dr. Schwarz. Ensure BID - Dr. Schwarz notes microperforation from stent placement could have also caused leukocytosis and conservative management is recommended. 2. Presumed aspiration PNA -Leukocytosis improving - zosyn changed to augmentin - F/u bld cx 3. HTN - Continue current therapy - increase amlodipine to 10mg po daily 4. DM - Insulin per protocol 5. Hypokalemia - Replete and follow. DVT ppx - Heparin PT consulted; needs rehab placement; CM aware VS,Seanbone, I+O VS, Fishbone, I+O Laboratory Tests 12/21/19 06:30 Vital Signs Date Time Temp Pulse Resp B/P (MAP) Pulse Ox O2 Delivery O2 Flow Rate FiO2 12/21/19 09:28 63 12/21/19 09:27 165/76 12/21/19 06:00 97.6 18 96 Room Air 12/18/19 21:00 0.5 I&O- Last 24 Hours up to 6 AM 12/21/19 06:00 Intake Total 1330 ml Output Total 0 ml Balance 1330 ml REILLY HEAD MD Dec 21, 2019 12:01
[2019-12-21 14:00] VITALS: BP 138/52
[2019-12-21] MEDS: METOCLOPRAMIDE 10 MG TAB PO PRN (15:01)
[2019-12-21] MEDS: LANSOPRAZOLE SUSPENSION 30 MG/10 ML ORAL SYRINGE (FIRST-LANSOPRAZOLE) PO SCH (18:43)
[2019-12-21] MEDS: SIMVASTATIN 20 MG TAB PO SCH (20:38)
[2019-12-21] MEDS: SERTRALINE 100 MG TAB PO SCH (20:38)
[2019-12-21 22:00] VITALS: BP 135/60
[2019-12-22] MEDS: SUCRALFATE SUSP 1GM/10ML UD PO SCH ×4 (05:18→23:36)
[2019-12-22 06:00] VITALS: BP 132/67
[2019-12-22 07:44] LABS: HEMATOCRIT 38.7 % (36.0-47.0); HEMOGLOBIN 12.2 g/dl (12.0-15.5); MEAN CORPUSCULAR HEMOGLOBIN 28.2 pg (27.0-33.0); MEAN CORPUSCULAR HGB CONC 31.5 g/dl (32.0-36.5); MEAN CORPUSCULAR VOLUME 89.4 fl (80.0-96.0); PLATELET COUNT, AUTOMATED 267 10^3/uL (150-450); RED BLOOD COUNT 4.33 10^6/uL (4.00-5.40); WHITE BLOOD COUNT 7.6 10^3/uL (4.0-10.0)
[2019-12-22 08:02] LABS: BLOOD UREA NITROGEN 8 MG/DL (7-18); CALCIUM LEVEL 8.4 MG/DL (8.8-10.2); CARBON DIOXIDE LEVEL 33 MEQ/L (21-32); CHLORIDE LEVEL 104 MEQ/L (98-107); CREATININE FOR GFR 0.54 MG/DL (0.55-1.30); GLOMERULAR FILTRATION RATE > 60.0 (>39); GLUCOSE, FASTING 117 MG/DL (70-100); MAGNESIUM LEVEL 1.5 MG/DL (1.8-2.4); POTASSIUM SERUM 3.4 MEQ/L (3.5-5.1); SODIUM LEVEL 142 MEQ/L (136-145)
[2019-12-22] MEDS: MAALOX 30 ML SUSP *UDC PO SCH ×3 (08:33→21:48)
[2019-12-22] MEDS: LIDOCAINE VISCOUS 2% SOLN 15ML UDC SS SCH ×3 (08:33→22:42)
[2019-12-22] MEDS: MONTELUKAST 10 MG TAB PO SCH (08:33)
[2019-12-22] MEDS: HumaLOG INSULIN (NovoLOG) PER UNIT SC SCH ×4 (08:33→21:00)
[2019-12-22] MEDS: LANSOPRAZOLE SUSPENSION 30 MG/10 ML ORAL SYRINGE (FIRST-LANSOPRAZOLE) PO SCH (08:33)
[2019-12-22] MEDS: LOSARTAN 50MG TABLET PO SCH (08:34)
[2019-12-22] MEDS: MIRALAX *UNIT DOSE* 17GM PACKET PO SCH (08:35)
[2019-12-22] MEDS: amLODIPine 10 MG TAB PO SCH (08:35)
[2019-12-22] MEDS: ACETAMINOPHEN TAB 650MG DOSE (2X325MG) PO PRN (08:35)
[2019-12-22] MEDS: METOPROLOL TART 50 MG TAB PO SCH ×2 (08:35→21:51)
[2019-12-22] MEDS: HEPARIN SOD (PORCINE) 5000UNITS/ML 1ML VIAL/SYRINGE SQ SCH ×2 (08:36→21:48)
[2019-12-22] MEDS: AUGMENTIN 875 MG TAB PO SCH ×2 (08:38→21:47)
--- NOTE | 2019-12-22 11:36 | IPNPDOC ---
Text Note Date of Service The patient was seen on 12/22/19. NOTE SUBJECTIVE: Pt tolerated pureed diet. No acute changes overnight. OBJECTIVE PHYSICAL EXAMINATION: VITAL SIGNS: Please see below. GENERAL: Comfortable, in no distress HEENT: Head normocephalic, atraumatic, EOMI, sclera clear CARDIOVASCULAR: Regular rate and rhythm RESPIRATORY: Fine crackles right base. No wheezing/rhonchi. ABDOMINAL: Normal bowel sounds, tender, soft EXTREMITIES: No pitting edema NEUROLOGICAL: CN 3-12 grossly intact PSYCHOLOGICAL: Anxious LABORATORY DATA, IMAGING STUDIES, MICROBIOLOGY: Please see below. CT chest IMPRESSION: 1. There is now a esophageal stent. There is increased soft tissue surrounding the stent as above. 2. There is increased density within the stent as above. 3. Prominent bilateral shawn. 4. Stable pretracheal lymph node. 5. Bilateral effusions with slightly worsening left base atelectatic changes or scarring. 6. Increasing size of a right adrenal lesion however, this has Hounsfield units consistent with an adenoma. 7. Incompletely seen right renal cyst which cannot characterized. ASSESSMENT AND PLAN: This is a 74-year-old female with esophageal stricture who had dilatation and stent placement today. Dr. Schwarz has recommended clear liquid diet for one day followed by soft diet for 2 weeks. She would need endoscopy in 3 months and follow up in 4 to 6 weeks. Pending clearance from GI PROBLEMS: 1. Esophageal Stricture - Dilatation and stent placement 12/14 - Dr. Schwarz notes n/v typical post op- stent takes 48hr to dilate - Now tolerating full liquid diet; advance to pureed as tolerated per Dr. Schwarz. Ensure BID - Dr. Schwarz notes microperforation from stent placement could have also caused leukocytosis and conservative management is recommended. 2. Presumed aspiration PNA -Leukocytosis improving - zosyn changed to augmentin - F/u bld cx 3. HTN - Continue current therapy - increase amlodipine to 10mg po daily 4. DM - Insulin per protocol 5. Hypokalemia - Replete and follow. 6. Right Adrenal Adenoma/renal cyst - f/u with pcp for close survillence and possible biopsy if needed DVT ppx - Heparin PT consulted; needs rehab placement; CM aware VS,Fishbone, I+O VS, Fishbone, I+O Laboratory Tests 12/22/19 07:21 Vital Signs Date Time Temp Pulse Resp B/P (MAP) Pulse Ox O2 Delivery O2 Flow Rate FiO2 12/22/19 08:34 163/80 12/22/19 06:00 97.7 64 18 98 Room Air 12/18/19 21:00 0.5 I&O- Last 24 Hours up to 6 AM 12/22/19 06:00 Intake Total 840 ml Output Total 200 ml Balance 640 ml REILLY HEAD MD Dec 22, 2019 11:36
[2019-12-22] MEDS: traMADol 50 MG TAB PO PRN ×2 (12:30→23:37)
[2019-12-22 14:00] VITALS: BP 145/75
[2019-12-22] MEDS: SERTRALINE 100 MG TAB PO SCH (21:47)
[2019-12-22] MEDS: SIMVASTATIN 20 MG TAB PO SCH (21:47)
[2019-12-22 22:00] VITALS: BP 163/71
[2019-12-23] MEDS: SUCRALFATE SUSP 1GM/10ML UD PO SCH ×4 (05:49→23:10)
[2019-12-23 06:00] VITALS: BP 137/60
[2019-12-23 06:20] LABS: HEMATOCRIT 37.7 % (36.0-47.0); HEMOGLOBIN 12.5 g/dl (12.0-15.5); MEAN CORPUSCULAR HGB CONC 33.2 g/dl (32.0-36.5); MEAN CORPUSCULAR VOLUME 87.5 fl (80.0-96.0); PLATELET COUNT, AUTOMATED 252 10^3/uL (150-450); RED BLOOD COUNT 4.31 10^6/uL (4.00-5.40); WHITE BLOOD COUNT 8.3 10^3/uL (4.0-10.0)
[2019-12-23] MEDS: HumaLOG INSULIN (NovoLOG) PER UNIT SC SCH ×4 (07:30→20:55)
[2019-12-23] MEDS ORDERED: MAG SULF 1GM/100ML (MAG RUN) 1 GM in IV 1 EA IV ONE (08:00)
[2019-12-23] MEDS: MIRALAX *UNIT DOSE* 17GM PACKET PO SCH (09:00)
[2019-12-23] MEDS: MAALOX 30 ML SUSP *UDC PO SCH ×3 (09:03→20:19)
[2019-12-23] MEDS: LIDOCAINE VISCOUS 2% SOLN 15ML UDC SS SCH ×3 (09:03→20:19)
[2019-12-23] MEDS: HEPARIN SOD (PORCINE) 5000UNITS/ML 1ML VIAL/SYRINGE SQ SCH ×2 (09:04→20:19)
[2019-12-23] MEDS: LANSOPRAZOLE SUSPENSION 30 MG/10 ML ORAL SYRINGE (FIRST-LANSOPRAZOLE) PO SCH (09:04)
[2019-12-23] MEDS: POTASSIUM CHLORIDE 10% LIQ 20 MEQ/15 ML UDC PO ONE ×2 (09:04→15:46)
[2019-12-23] MEDS: MAGNESIUM OXIDE 400 MG TAB (MAG-OX) PO SCH ×2 (09:05→20:18)
[2019-12-23] MEDS: MONTELUKAST 10 MG TAB PO SCH (09:05)
[2019-12-23] MEDS: AUGMENTIN 875 MG TAB PO SCH ×2 (09:07→20:19)
[2019-12-23] MEDS: amLODIPine 10 MG TAB PO SCH (09:07)
[2019-12-23] MEDS: METOPROLOL TART 50 MG TAB PO SCH ×2 (09:07→20:19)
[2019-12-23] MEDS: LOSARTAN 50MG TABLET PO SCH (09:07)
[2019-12-23] MEDS ORDERED: POTASSIUM CHLORIDE 10 MEQ SR TABLET PO ONE (16:30)
[2019-12-23] MEDS: SERTRALINE 100 MG TAB PO SCH (20:17)
[2019-12-23] MEDS: SIMVASTATIN 20 MG TAB PO SCH (20:20)
[2019-12-23 22:00] VITALS: BP 133/86
[2019-12-24] MEDS: SUCRALFATE SUSP 1GM/10ML UD PO SCH ×4 (05:16→23:32)
[2019-12-24 06:00] VITALS: BP 146/89
[2019-12-24 08:21] LABS: BLOOD UREA NITROGEN 5 MG/DL (7-18); CALCIUM LEVEL 8.7 MG/DL (8.8-10.2); CARBON DIOXIDE LEVEL 32 MEQ/L (21-32); CHLORIDE LEVEL 103 MEQ/L (98-107); GLOMERULAR FILTRATION RATE > 60.0 (>39); GLUCOSE, FASTING 129 MG/DL (70-100); MAGNESIUM LEVEL 1.6 MG/DL (1.8-2.4); POTASSIUM SERUM 3.7 MEQ/L (3.5-5.1); SODIUM LEVEL 141 MEQ/L (136-145)
[2019-12-24] MEDS: MIRALAX *UNIT DOSE* 17GM PACKET PO SCH (09:00)
[2019-12-24] MEDS: HumaLOG INSULIN (NovoLOG) PER UNIT SC SCH ×4 (09:20→20:44)
[2019-12-24] MEDS: HEPARIN SOD (PORCINE) 5000UNITS/ML 1ML VIAL/SYRINGE SQ SCH ×2 (09:22→20:56)
[2019-12-24] MEDS: LANSOPRAZOLE SUSPENSION 30 MG/10 ML ORAL SYRINGE (FIRST-LANSOPRAZOLE) PO SCH (09:22)
[2019-12-24] MEDS: MAGNESIUM OXIDE 400 MG TAB (MAG-OX) PO SCH ×2 (09:23→20:55)
[2019-12-24] MEDS: LIDOCAINE VISCOUS 2% SOLN 15ML UDC SS SCH ×3 (09:23→21:19)
[2019-12-24] MEDS: MONTELUKAST 10 MG TAB PO SCH (09:23)
[2019-12-24] MEDS: LOSARTAN 50MG TABLET PO SCH (09:24)
[2019-12-24] MEDS: METOPROLOL TART 50 MG TAB PO SCH ×2 (09:24→20:56)
[2019-12-24] MEDS: amLODIPine 10 MG TAB PO SCH (09:24)
[2019-12-24] MEDS: MAALOX 30 ML SUSP *UDC PO SCH ×3 (09:24→20:55)
[2019-12-24] MEDS: SIMVASTATIN 20 MG TAB PO SCH (20:55)
[2019-12-24] MEDS: SERTRALINE 100 MG TAB PO SCH (20:55)
[2019-12-24 22:00] VITALS: BP 131/58
[2019-12-25] MEDS: SUCRALFATE SUSP 1GM/10ML UD PO SCH ×3 (05:31→18:22)
[2019-12-25 06:00] VITALS: BP 138/61
[2019-12-25 07:01] LABS: BLOOD UREA NITROGEN 6 MG/DL (7-18); CALCIUM LEVEL 8.7 MG/DL (8.8-10.2); CARBON DIOXIDE LEVEL 31 MEQ/L (21-32); CHLORIDE LEVEL 103 MEQ/L (98-107); CREATININE FOR GFR 0.59 MG/DL (0.55-1.30); GLOMERULAR FILTRATION RATE > 60.0 (>39); GLUCOSE, FASTING 140 MG/DL (70-100); POTASSIUM SERUM 3.6 MEQ/L (3.5-5.1); SODIUM LEVEL 141 MEQ/L (136-145)
[2019-12-25 08:00] VITALS: BP 156/90
[2019-12-25] MEDS: MIRALAX *UNIT DOSE* 17GM PACKET PO SCH (09:00)
[2019-12-25] MEDS: HEPARIN SOD (PORCINE) 5000UNITS/ML 1ML VIAL/SYRINGE SQ SCH ×2 (09:31→20:13)
[2019-12-25] MEDS: HumaLOG INSULIN (NovoLOG) PER UNIT SC SCH ×4 (09:50→21:00)
[2019-12-25] MEDS: MONTELUKAST 10 MG TAB PO SCH (09:50)
[2019-12-25] MEDS: MAGNESIUM OXIDE 400 MG TAB (MAG-OX) PO SCH ×2 (09:53→20:13)
[2019-12-25] MEDS: LANSOPRAZOLE SUSPENSION 30 MG/10 ML ORAL SYRINGE (FIRST-LANSOPRAZOLE) PO SCH (09:53)
[2019-12-25] MEDS: amLODIPine 10 MG TAB PO SCH (09:55)
[2019-12-25] MEDS: LOSARTAN 50MG TABLET PO SCH (09:55)
[2019-12-25] MEDS: MAALOX 30 ML SUSP *UDC PO SCH ×3 (09:55→20:13)
[2019-12-25] MEDS: LIDOCAINE VISCOUS 2% SOLN 15ML UDC SS SCH ×3 (09:56→20:14)
[2019-12-25] MEDS: METOPROLOL TART 50 MG TAB PO SCH ×2 (09:56→20:14)
[2019-12-25 14:09] VITALS: BP 132/79
[2019-12-25] MEDS: METOCLOPRAMIDE 10 MG TAB PO PRN (14:20)
[2019-12-25] MEDS ORDERED: ONDANSETRON 4 MG TAB PO PRN (14:45)
[2019-12-25] MEDS: SERTRALINE 100 MG TAB PO SCH (20:14)
[2019-12-25] MEDS: SIMVASTATIN 20 MG TAB PO SCH (20:14)
[2019-12-25 22:00] VITALS: BP 125/66
[2019-12-26] MEDS: SUCRALFATE SUSP 1GM/10ML UD PO SCH ×5 (00:15→23:01)
[2019-12-26 06:29] VITALS: BP 130/70
[2019-12-26 07:15] LABS: BLOOD UREA NITROGEN 6 MG/DL (7-18); CALCIUM LEVEL 8.7 MG/DL (8.8-10.2); CARBON DIOXIDE LEVEL 33 MEQ/L (21-32); CHLORIDE LEVEL 102 MEQ/L (98-107); GLOMERULAR FILTRATION RATE > 60.0 (>39); GLUCOSE, FASTING 107 MG/DL (70-100); POTASSIUM SERUM 3.3 MEQ/L (3.5-5.1); SODIUM LEVEL 140 MEQ/L (136-145)
[2019-12-26] MEDS: HumaLOG INSULIN (NovoLOG) PER UNIT SC SCH ×4 (07:30→20:11)
[2019-12-26] MEDS: MAALOX 30 ML SUSP *UDC PO SCH ×3 (10:01→20:30)
[2019-12-26] MEDS: LANSOPRAZOLE SUSPENSION 30 MG/10 ML ORAL SYRINGE (FIRST-LANSOPRAZOLE) PO SCH (10:01)
[2019-12-26] MEDS: LIDOCAINE VISCOUS 2% SOLN 15ML UDC SS SCH ×3 (10:02→20:30)
[2019-12-26] MEDS: HEPARIN SOD (PORCINE) 5000UNITS/ML 1ML VIAL/SYRINGE SQ SCH ×2 (10:03→20:31)
[2019-12-26] MEDS: POTASSIUM CHLORIDE 10 MEQ SR TABLET PO SCH (10:04)
[2019-12-26] MEDS: MAGNESIUM OXIDE 400 MG TAB (MAG-OX) PO SCH ×2 (10:04→20:30)
[2019-12-26] MEDS: MIRALAX *UNIT DOSE* 17GM PACKET PO SCH (10:05)
[2019-12-26] MEDS: MONTELUKAST 10 MG TAB PO SCH (10:05)
[2019-12-26] MEDS: METOPROLOL TART 50 MG TAB PO SCH ×2 (10:06→20:31)
[2019-12-26] MEDS: amLODIPine 10 MG TAB PO SCH (10:06)
[2019-12-26] MEDS: LOSARTAN 50MG TABLET PO SCH (10:10)
[2019-12-26] MEDS: SERTRALINE 100 MG TAB PO SCH (20:31)
[2019-12-26] MEDS: SIMVASTATIN 20 MG TAB PO SCH (20:31)
[2019-12-27] MEDS: SUCRALFATE SUSP 1GM/10ML UD PO SCH ×4 (05:00→23:24)
[2019-12-27 06:00] VITALS: BP 138/72
[2019-12-27] MEDS: MIRALAX *UNIT DOSE* 17GM PACKET PO SCH ×2 (08:31→09:36)
[2019-12-27] MEDS: LOSARTAN 50MG TABLET PO SCH (08:34)
[2019-12-27] MEDS: amLODIPine 10 MG TAB PO SCH (08:34)
[2019-12-27] MEDS: MAALOX 30 ML SUSP *UDC PO SCH ×3 (08:34→20:32)
[2019-12-27] MEDS: POTASSIUM CHLORIDE 10 MEQ SR TABLET PO SCH (08:35)
[2019-12-27] MEDS: MONTELUKAST 10 MG TAB PO SCH (08:35)
[2019-12-27] MEDS: HEPARIN SOD (PORCINE) 5000UNITS/ML 1ML VIAL/SYRINGE SQ SCH ×2 (08:35→20:33)
[2019-12-27] MEDS: METOPROLOL TART 50 MG TAB PO SCH ×2 (08:36→20:32)
[2019-12-27] MEDS: MAGNESIUM OXIDE 400 MG TAB (MAG-OX) PO SCH ×2 (08:36→20:31)
[2019-12-27] MEDS: HumaLOG INSULIN (NovoLOG) PER UNIT SC SCH ×4 (08:37→19:52)
[2019-12-27] MEDS: LANSOPRAZOLE SUSPENSION 30 MG/10 ML ORAL SYRINGE (FIRST-LANSOPRAZOLE) PO SCH (09:22)
[2019-12-27] MEDS: LIDOCAINE VISCOUS 2% SOLN 15ML UDC SS SCH ×3 (09:22→20:32)
[2019-12-27] MEDS: SIMVASTATIN 20 MG TAB PO SCH (20:31)
[2019-12-27] MEDS: SERTRALINE 100 MG TAB PO SCH (20:32)
[2019-12-27] MEDS: traMADol 50 MG TAB PO PRN (21:17)
[2019-12-28] MEDS: SUCRALFATE SUSP 1GM/10ML UD PO SCH ×4 (05:37→23:02)
[2019-12-28 06:00] VITALS: BP 150/84
[2019-12-28] MEDS: MAALOX 30 ML SUSP *UDC PO SCH ×3 (07:50→20:39)
[2019-12-28] MEDS: LIDOCAINE VISCOUS 2% SOLN 15ML UDC SS SCH ×3 (07:50→20:40)
[2019-12-28] MEDS: LANSOPRAZOLE SUSPENSION 30 MG/10 ML ORAL SYRINGE (FIRST-LANSOPRAZOLE) PO SCH (07:51)
[2019-12-28] MEDS: HumaLOG INSULIN (NovoLOG) PER UNIT SC SCH ×4 (07:52→21:00)
[2019-12-28] MEDS: HEPARIN SOD (PORCINE) 5000UNITS/ML 1ML VIAL/SYRINGE SQ SCH ×2 (07:53→20:41)
[2019-12-28] MEDS: MIRALAX *UNIT DOSE* 17GM PACKET PO SCH (07:53)
[2019-12-28] MEDS: MONTELUKAST 10 MG TAB PO SCH (07:54)
[2019-12-28] MEDS: MAGNESIUM OXIDE 400 MG TAB (MAG-OX) PO SCH ×2 (07:54→20:41)
[2019-12-28] MEDS: POTASSIUM CHLORIDE 10 MEQ SR TABLET PO SCH (07:55)
[2019-12-28] MEDS: amLODIPine 10 MG TAB PO SCH (07:56)
[2019-12-28] MEDS: METOPROLOL TART 50 MG TAB PO SCH ×2 (07:56→20:40)
[2019-12-28] MEDS: LOSARTAN 50MG TABLET PO SCH (07:57)
[2019-12-28] MEDS: POLYVINYL ALCOHOL OPHTH SOLN 15 ML(LIQUITEARS) OU SCH ×4 (12:01→20:39)
[2019-12-28] MEDS: traMADol 50 MG TAB PO PRN ×2 (12:01→23:03)
--- NOTE | 2019-12-28 15:07 | IPNPDOC ---
Date Seen The patient was seen on 12/28/19. Progress Note Hospitalist Progress Noted dictated job #[id number] Assessment: Esophageal Stricture s/p dilation and stent Presumed aspiration PNA Dry Eyes Tinea corporis HTN DM Hypokalemia Right Adrenal Adenoma/renal cyst plan: awaiting placement outpt GI fu Dr. epperson aspiration precautions topical nystatin refresh eyedrops continue ALC status. VS, I&O, 24H, Fishbone Vital Signs/I&O Vital Signs Date Time Temp Pulse Resp B/P (MAP) Pulse Ox O2 Delivery O2 Flow Rate FiO2 12/28/19 12:50 18 12/28/19 07:56 73 154/76 12/28/19 06:00 97.6 98 Room Air I&O- Last 24 Hours up to 6 AM 12/28/19 05:59 Intake Total 460 ml Output Total 0 ml Balance 460 ml HANNAH YUSUF MD Dec 28, 2019 15:04
[2019-12-28] MEDS: NYSTATIN OINTMENT 15 GM TOP SCH ×2 (17:25→20:39)
[2019-12-28] MEDS: SIMVASTATIN 20 MG TAB PO SCH (20:40)
[2019-12-28] MEDS: SERTRALINE 100 MG TAB PO SCH (20:40)
[2019-12-29] MEDS ORDERED: TETRAHYDROZOLINE OPHTH 0.05% 15 ML BTL OU PRN (05:00)
[2019-12-29 06:00] VITALS: BP 149/66
[2019-12-29] MEDS: SUCRALFATE SUSP 1GM/10ML UD PO SCH (06:07)
[2019-12-29] MEDS: HumaLOG INSULIN (NovoLOG) PER UNIT SC SCH (07:30)
[2019-12-29] MEDS ORDERED: FLUBLOK(EGG FREE)(QUAD)INFLUENZA VACC 0.5ML SYRINGE 18YRS & OLDER IM ONE ×2 (08:45→10:00)
[2019-12-29] MEDS: MONTELUKAST 10 MG TAB PO SCH (09:00)
[2019-12-29] MEDS: HEPARIN SOD (PORCINE) 5000UNITS/ML 1ML VIAL/SYRINGE SQ SCH (09:00)
[2019-12-29] MEDS: MAALOX 30 ML SUSP *UDC PO SCH (09:01)
[2019-12-29] MEDS: LIDOCAINE VISCOUS 2% SOLN 15ML UDC SS SCH (09:01)
[2019-12-29] MEDS: METOPROLOL TART 50 MG TAB PO SCH (09:02)
[2019-12-29] MEDS: LANSOPRAZOLE SUSPENSION 30 MG/10 ML ORAL SYRINGE (FIRST-LANSOPRAZOLE) PO SCH (09:02)
[2019-12-29] MEDS: MAGNESIUM OXIDE 400 MG TAB (MAG-OX) PO SCH (09:03)
[2019-12-29] MEDS: POTASSIUM CHLORIDE 10 MEQ SR TABLET PO SCH (09:03)
[2019-12-29] MEDS: amLODIPine 10 MG TAB PO SCH (09:03)
[2019-12-29 09:04] VITALS: BP 143/75
[2019-12-29] MEDS: LOSARTAN 50MG TABLET PO SCH (09:04)
[2019-12-29] MEDS: NYSTATIN OINTMENT 15 GM TOP SCH (09:04)
[2019-12-29] MEDS ORDERED: LOPR1TAB6 PO (09:17)
--- NOTE | 2019-12-29 09:17 | IPN ---
DATE: 12/29/19 SUBJECTIVE: The patient complains of dry eyes without itchiness, discharge or stickiness. No changes in vision or eye pain. She also complains of redness in the groin and some pruritus and chafing of the skin. No vaginal discharge. No other issues per nursing or per the patient. OBJECTIVE: PHYSICAL EXAMINATION: VITAL SIGNS: Temperature 97.6, pulse 64, respiratory rate 18, blood pressure 154/84, oxygen saturation 98% on room air. GENERAL APPEARANCE: Awake, alert, oriented to person and place, answering questions appropriately. HEENT: No icterus or jaundice. No respiratory distress. LUNGS: Diminished breath sounds, bilateral crackles. HEART: S1, S2, sinus rhythm. ABDOMEN: Soft, nontender, nondistended. Normoactive bowel sounds. No rebound or guarding. EXTREMITIES: No clubbing, cyanosis, or edema. LABORATORY DATA: From 12/22 - white count 8.3, hemoglobin 12, hematocrit 37, platelet count 252. 8/30 metabolic panel - sodium 140, potassium 3.3, chloride 102, bicarbonate 33, BUN 6, creatinine 0.6, glucose of 107. Two sets of blood cultures growth after 5 days. ASSESSMENT AND PLAN: This is a 74-year-old female admitted for a presumed aspiration pneumonia, had esophageal stricture that was dilated, had a stent placed on 12/15/[address] Pugh, with advanced to pureed diet as tolerated, Ensure twice daily. The patient was found to have a microperforation from stent placement and had been on IV Zosyn currently and Augmentin. Blood cultures negative. IMPRESSION: 1. Esophageal stricture - status post dilation and stent placement on 12/[address] Pugh with Ensure twice daily, was found a microperforation and on IV Zosyn for presumed aspiration pneumonia. 2. Aspiration pneumonia status post IV Zosyn and currently on oral Augmentin. Cultures negative. 3. Hypertension on Norvasc. 4. Type 2 diabetes on consistent carbohydrate diet and insulin sliding scale per protocol. 5. Right adrenal adenoma - patient follow up. 6. Hypokalemia repleted. DISPOSITION: Awaiting placement. PFS consulted. JOSE
[2019-12-30] MEDS ORDERED: LIDO2SOL17 PO (18:38)
--- NOTE | 2020-01-05 11:26 | ROOR ---
Patient Name: Kimberly Ramsey Procedure Date: 12/15/2019 2:22 PM Date of : 1945 Age: 74 Room: Main OR Gender: Female Note Status: Director Telemetry Override Procedure: Upper GI endoscopy Indications: For therapy of esophageal stricture, For dilation and stenting of esophageal stenosis Providers: Doyle Schwarz MD Referring MD: 2. Inpatient 2. Inpatient Requesting Provider: Medicines: Monitored Anesthesia Care Complications: No immediate complications. Procedure: Pre-Anesthesia Assessment: - Prior to the procedure, a History and Physical was performed, and patient medications and allergies were reviewed. The patient is competent. The risks and benefits of the procedure and the sedation options and risks were discussed with the patient. All questions were answered and informed consent was obtained. Patient identification and proposed procedure were verified by the physician, the nurse and the anesthesiologist in the procedure room. Mental Status Examination: alert and oriented. Airway Examination: normal oropharyngeal airway and neck mobility. Respiratory Examination: clear to auscultation. CV Examination: normal. Prophylactic Antibiotics: The patient does not require prophylactic antibiotics. Prior Anticoagulants: The patient has taken no previous anticoagulant or antiplatelet agents. ASA Grade Assessment: II - A patient with mild systemic disease. After reviewing the risks and benefits, the patient was deemed in satisfactory condition to undergo the procedure. The anesthesia plan was to use monitored anesthesia care (MAC). Immediately prior to administration of medications, the patient was re-assessed for adequacy to receive sedatives. The heart rate, respiratory rate, oxygen saturations, blood pressure, adequacy of pulmonary ventilation, and response to care were monitored throughout the procedure. The physical status of the patient was re-assessed after the procedure. The Endoscope was introduced through the mouth, and advanced to the second part of duodenum. The patient tolerated the procedure well. The upper GI endoscopy was accomplished without difficulty. Findings: One benign-appearing, intrinsic severe (stenosis; an endoscope cannot pass) stenosis was found in the mid esophagus. This stenosis measured 8 mm (inner diameter) x 2 cm (in length). The stenosis was traversed after downsizing scope. This was stented with Hanaro Esophageal stent ([id number]) under fluoroscopic guidance, proximal margin at 20 cm and distal margin at 30 cm from the incisors. A TTS dilator was passed through the scope. Dilation with a 15-16.5-18 mm balloon dilator was performed to 15 mm. The dilation site was examined following endoscope reinsertion and showed mild mucosal disruption. Estimated blood loss was minimal. The Z-line was regular and was found 36 cm from the incisors. No gross lesions were noted in the entire examined stomach. The duodenal bulb and second portion of the duodenum were normal. Impression: - Benign-appearing esophageal stenosis. Prosthesis placed. Dilated. - Z-line regular, 36 cm from the incisors. - No gross lesions in the stomach. - Normal duodenal bulb and second portion of the duodenum. - No specimens collected. Recommendation: - Patient has a contact number available for emergencies. The signs and symptoms of potential delayed complications were discussed with the patient. Return to normal activities tomorrow. Written discharge instructions were provided to the patient. - Clear liquid diet for 1 day, then advance as tolerated to soft diet for 2 weeks. - Use Tylenol (acetaminophen) 325 mg 1 PO q 4-6 hrs for 2 weeks. - Recommend an analgesic. - Repeat upper endoscopy in 3 months per protocol and for retreatment. - Return to GI clinic in [facility] (address [address], [address], [place] [address]) in 4 -- 6 weeks. Please call GI clinic @ [phone] for apppointment date and time. - Return to primary care physician. Doyle Schwarz MD Doyle Schwarz MD 12/15/2019 3:19:52 PM Electronically signed by Doyle Schwarz MD Number of Addenda: 0 Note Initiated On: 12/15/2019 2:22 PM Estimated Blood Loss: Estimated blood loss was minimal.
--- NOTE | 2020-01-14 14:32 | ECGEPIP ---
[facility] Test Date: 2019-12-25 Pat Name: DAVID GUERRERO Department: Room: Z4017-19 Gender: Female Co Op: : 1945 Requested By: REILLY HEAD Order Number: [id number] Reading MD: Sandi Simms Measurements Intervals [place] Rate: 60 P: 35 MT: 136 QRS: -15 QRSD: 89 T: 65 QT: 438 QTc: 439 Interpretive Statements SINUS RHYTHM POSSIBLE LEFT ATRIAL ENLARGEMENT LEFT VENTRICULAR HYPERTROPHY AND ST-T CHANGE ABNORMAL ECG ALSO INFERIOR ST/T ABNORMALITY ? U WAVES SEE SCANNED DOWNTIME REPORT
--- NOTE | 2020-01-20 15:27 | ECGEPIP ---
[facility] Test Date: 2019-12-16 Pat Name: DAVID GUERRERO Department: Room: [place] [address] Gender: Female Extension Service Specialist In Charge: FREDDY : 1945 Requested By: REILLY HEAD Order Number: [id number] Reading MD: Yaya Dre Measurements Intervals [place] Rate: 103 P: 40 [place]: 136 QRS: -22 QRSD: 86 T: 97 QT: 284 QTc: 372 Interpretive Statements SINUS TACHYCARDIA POSSIBLE LEFT ATRIAL ENLARGEMENT BORDERLINE LEFT AXIS DEVIATION LEFT VENTRICULAR HYPERTROPHY AND ST-T CHANGE ABNORMAL ECG NO PRIOR TRACING IN THE SYSTEM SEE SCANNED DOWNTIME REPORT
--- NOTE | 2020-01-21 08:07 | REP ---
UPPER ENDOSCOPY WITH ESOPHAGEAL STENT PLACEMENT: 17 seconds of fluoroscopy time is reported. FINDINGS: A sequence of 29 last image hold fluoroscopically obtained spot radiographs of the chest document esophageal intubation and stent placement. MTDD
--- NOTE | 2020-01-21 08:09 | REP ---
CHEST X-RAY: SITTING AP AND LATERAL VIEWS HISTORY: Leukocytosis. Check esophageal stent. COMPARISON: 12/10/2019. FINDINGS: Sitting AP and lateral views demonstrate an esophageal stent in place with the proximal end of the stent at the level of the transverse aorta and the distal end of the stent projecting at the level of the distal esophagus above the GE junction. There is no evidence of infiltrate. Pleural angles are sharp. No evidence of pneumothorax or pneumomediastinum is seen. Heart size is borderline. There is linear plate-like atelectasis on the left quite mild. IMPRESSION: Esophageal stent noted in place as above. MTDD
[2020-01-24 11:43] LABS: BASO % 0.4 % (0.0-1.0); EOS # 0.2 10^3/uL (0.0-0.5); EOS % 2.8 % (0.0-3.0); HEMATOCRIT 38.4 % (36.0-47.0); HEMOGLOBIN 12.1 g/dl (12.0-15.5); LYMPH # 2.1 10^3/uL (1.5-5.0); LYMPH % 25.3 % (24.0-44.0); MEAN CORPUSCULAR HEMOGLOBIN 28.1 pg (27.0-33.0); MEAN CORPUSCULAR HGB CONC 31.5 g/dl (32.0-36.5); MEAN CORPUSCULAR VOLUME 89.3 fl (80.0-96.0); MONO # 0.6 10^3/uL (0.0-0.8); MONO % 7.2 % (0.0-5.0); NEUTROPHILS # 5.2 10^3/uL (1.5-8.5); NEUTROPHILS % 63.9 % (36.0-66.0); PLATELET COUNT, AUTOMATED 278 10^3/uL (150-450); WHITE BLOOD COUNT 8.1 10^3/uL (4.0-10.0)
--- NOTE | 2020-01-24 16:26 | DSES ---
DATE OF ADMISSION: 12/14/2019 DATE OF DISCHARGE: 12/29/2019 Due to technical failure, unable to provide any history. PRIMARY DISCHARGE DIAGNOSIS: Esophageal stricture, status post dilation and stent placement 12/15/[address] Schwarz. 2. Aspiration pneumonia. 3. Hypertension. 4. Diabetes. 5. Hypokalemia. 6. Right adrenal adenoma and renal cyst. 7. Tinea purpuras. 8. Hypokalemia. 9. Dry eyes. 10. Obesity, body mass index (BMI) of 30.8. DISCHARGE MEDICATIONS: - metoprolol 50 mg twice a day - aspirin 81 daily - B12 at 1000 mcg daily - Zetia 10 mg every night - Tradjenta 5 mg daily - losartan 50 mg daily - montelukast 10 daily - nitroglycerin as needed - Zofran OTC before meals - Protonix 40 daily - potassium 30 mEq daily - sertraline 100 every night - simvastatin 20 every night - Carafate 1 gram before meals, every night DIET: Pureed diet, Ensure twice a day HISTORY OF PRESENT ILLNESS: This is a 74-year-old female, admitted for presumed aspiration pneumonia. Had an esophageal stricture, which was dilated and stent placed on 12/15/[address] Schwarz, advanced from liquid to pureed diet as tolerated and Ensure twice a day. Patient was found to have a microperforation from stent placement and had been on IV Zosyn and now Augmentin, which has been completed. Blood cultures remain negative. Patient was kept on consistent- carbohydrate diet, insulin sliding scale, and hyperglycemic protocol. She remained stable and was changed to alternative level of care (ALC) status until day of discharge. On CT abdomen and pelvis she was found to have a right adrenal adenoma, which will need further workup or referral to an picture framer as outpatient by her primary care physician. DISCHARGE INSTRUCTIONS: Right adrenal adenoma. Outpatient referral to picture framer by primary care physician within 1-2 weeks of hospital discharge. Followup with Dr. Schwarz as outpatient for repeat esophagogastroduodenoscopy (EGD). Primary care physician (PCP) followup within 1 week of hospital discharge. PHYSICAL EXAMINATION ON DISCHARGE: Temperature 98, pulse 57, respiratory rate 18, blood pressure 143/745, 92% on room air. GENERAL: Patient is awake, alert, oriented to person, place, and time, answering questions appropriately. No jugular venous distention (JVD). No thyromegaly. LUNGS: Clear to auscultation. No wheezing, rales, or rhonchi. HEART: S1, S2, sinus rhythm. ABDOMEN: Soft, nontender, nondistended. Positive bowel sounds. EXTREMITIES: No cyanosis or clubbing. LABORATORY DATA: On December 22, white count 8.3, hemoglobin 12, hematocrit 37, platelet count 252. Sodium 140 on December 25, potassium 3.2, chloride 102, bicarbonate 33, BUN 6, creatinine 0.6, glucose 107. IMAGING STUDIES: Chest CT December 17: Right adrenal mass increased, 17 x 24 cm, from previous 12 x 22, suspicious for adenoma. Prominent bilateral shawn. Esophageal stent. Bilateral effusions with slightly worsening left basal atelectasis. Increased right adrenal lesion. Incompletely seen right renal cyst. CT of the head on December 25: Atrophy and chronic deep white matter ischemic changes. TIME SPENT ON DISCHARGE: 30 minutes. [facility]
[2020-02-06 18:14] LABS: BASO % 0.3 % (0.0-1.0); EOS # 0.2 10^3/uL (0.0-0.5); EOS % 3.5 % (0.0-3.0); HEMATOCRIT 37.7 % (36.0-47.0); LYMPH # 2.2 10^3/uL (1.5-5.0); LYMPH % 32.6 % (24.0-44.0); MEAN CORPUSCULAR HEMOGLOBIN 28.2 pg (27.0-33.0); MEAN CORPUSCULAR HGB CONC 31.8 g/dl (32.0-36.5); MEAN CORPUSCULAR VOLUME 88.5 fl (80.0-96.0); MONO # 0.6 10^3/uL (0.0-0.8); MONO % 8.2 % (0.0-5.0); NEUTROPHILS # 3.7 10^3/uL (1.5-8.5); NEUTROPHILS % 55.1 % (36.0-66.0); PLATELET COUNT, AUTOMATED 250 10^3/uL (150-450); RED BLOOD COUNT 4.26 10^6/uL (4.00-5.40); WHITE BLOOD COUNT 6.8 10^3/uL (4.0-10.0)
[2020-03-04 12:58] LABS: ALT/SGPT 12 U/L (12-78); BILIRUBIN,DIRECT 0.1 MG/DL (0.0-0.2); BILIRUBIN,TOTAL 0.3 MG/DL (0.2-1.0); CK-MB VALUE MASS < 1.0 NG/ML (<3.6); CPK CREATINE PHOSPHOKINASE 56 U/L (26-192); LIPASE 55 U/L (73-393); MB/CK RELATIVE INDEX 1.79 (< OR =4); TOTAL PROTEIN 6.6 GM/DL (6.4-8.2); TROPONIN I < 0.02 NG/ML (< 0.10)
[2020-03-05 08:12] LABS: ALBUMIN 2.8 GM/DL (3.2-5.2); ALT/SGPT 12 U/L (12-78); BILIRUBIN,TOTAL 0.6 MG/DL (0.2-1.0); BLOOD UREA NITROGEN 8 MG/DL (7-18); CALCIUM LEVEL 8.5 MG/DL (8.8-10.2); CARBON DIOXIDE LEVEL 29 MEQ/L (21-32); CHLORIDE LEVEL 106 MEQ/L (98-107); GLOMERULAR FILTRATION RATE > 60.0 (>39); GLUCOSE, FASTING 95 MG/DL (70-100); POTASSIUM SERUM 3.9 MEQ/L (3.5-5.1); SODIUM LEVEL 141 MEQ/L (136-145); TOTAL PROTEIN 6.1 GM/DL (6.4-8.2)
[2020-03-05 11:12] LABS: ALBUMIN 2.6 GM/DL (3.2-5.2); ALT/SGPT 13 U/L (12-78); BILIRUBIN,TOTAL 0.3 MG/DL (0.2-1.0); BLOOD UREA NITROGEN 9 MG/DL (7-18); CALCIUM LEVEL 8.8 MG/DL (8.8-10.2); CARBON DIOXIDE LEVEL 33 MEQ/L (21-32); CHLORIDE LEVEL 108 MEQ/L (98-107); CREATININE FOR GFR 0.94 MG/DL (0.55-1.30); GLOMERULAR FILTRATION RATE > 60.0 (>39); GLUCOSE, FASTING 101 MG/DL (70-100); LIPASE 42 U/L (73-393); POTASSIUM SERUM 4.3 MEQ/L (3.5-5.1); SODIUM LEVEL 144 MEQ/L (136-145); TOTAL PROTEIN 5.8 GM/DL (6.4-8.2)
== END 2019-12-29 12:31 | disposition home or self-care (01) | DRG 391 ==
LOC: M ED 15:30 → M MSPAV 22:20
PROVIDERS: ADMIT Internal Medicine; ATTEND General Practice
PROC: 0DH Gastrointestinal System, Insertion (ICD-10-PCS; principal; 2019-12-15 13:00)
DX: K22.2 Esophageal obstruction (principal); J69.0 Pneumonitis due to inhalation of food and vomit; I10 Essential (primary) hypertension; E11.9 Type 2 diabetes mellitus without complications; E87.6 Hypokalemia; D35.00 Benign neoplasm of unspecified adrenal gland; B35.4 Tinea corporis

== ENCOUNTER 2019-12-30 14:54 | Emergency (ER) | payer MEDICARE, MEDICAID ==
[~2019-12-30] VITALS: Ht 157.5 cm; Wt 76.5 kg
[~2019-12-30 14:54] MED LIST changes: -ISOVUE-370 76% 100ML VIAL As Ordered ONE; +LOPR1TAB6 PO; -ONDANSETRON 4MG/2ML VIAL As Ordered ONE; +PANT-23 PO; +POTA1TAB23 PO; +SUCR1ORA2 PO; +TRAD5TAB PO; -ZOSYN 4.5GM VIAL (J2543) As Ordered ONE
--- NOTE | 2019-12-30 15:35 | REPVR ---
PROCEDURE INFORMATION: Exam: XR Chest, 1 View Exam date and time: 12/30/2019 3:27 PM Age: 74 years old Clinical indication: Chest pain; Type not specified TECHNIQUE: Imaging protocol: XR of the chest Views: 1 view. COMPARISON: CT Chest without contrast 12/18/2019 12:41 PM FINDINGS: Lungs: Hyperinflation and mild interstitial prominence. No acute airspace disease. Pleural space: No pleural effusion. Heart/Mediastinum: Epicardial fat accentuates the cardiac silhouette. Bones/joints: Degenerative change. IMPRESSION: Hyperinflation and mild interstitial prominence. Electronically signed by: Negrito Youngblood On 12/30/2019 15:35:22 PM
[2019-12-30 15:40] LABS: BASO # 0.1 10^3/uL (0.0-0.2); BASO % 0.5 % (0.0-1.0); EOS # 0.2 10^3/uL (0.0-0.5); EOS % 1.9 % (0.0-3.0); HEMATOCRIT 41.7 % (36.0-47.0); HEMOGLOBIN 13.2 g/dl (12.0-15.5); LYMPH # 1.5 10^3/uL (1.5-5.0); LYMPH % 14.3 % (24.0-44.0); MEAN CORPUSCULAR HEMOGLOBIN 28.4 pg (27.0-33.0); MEAN CORPUSCULAR HGB CONC 31.7 g/dl (32.0-36.5); MEAN CORPUSCULAR VOLUME 89.7 fl (80.0-96.0); MONO % 9.3 % (0.0-5.0); NEUTROPHILS # 7.7 10^3/uL (1.5-8.5); NEUTROPHILS % 73.4 % (36.0-66.0); PLATELET COUNT, AUTOMATED 271 10^3/uL (150-450); RED BLOOD COUNT 4.65 10^6/uL (4.00-5.40); WHITE BLOOD COUNT 10.5 10^3/uL (4.0-10.0)
[2019-12-30 15:53] LABS: INR 1.13; PROTHROMBIN TIME 14.7 SECONDS (11.8-14.0)
[2019-12-30 15:54] LABS: PARTIAL THROMBOPLASTIN TIME 26.9 SECONDS (25.0-38.4)
[2019-12-30 16:13] LABS: ALT/SGPT 13 U/L (12-78); BILIRUBIN,DIRECT 0.2 MG/DL (0.0-0.2); BILIRUBIN,TOTAL 0.5 MG/DL (0.2-1.0); BLOOD UREA NITROGEN 12 MG/DL (7-18); CALCIUM LEVEL 9.4 MG/DL (8.8-10.2); CARBON DIOXIDE LEVEL 30 MEQ/L (21-32); CHLORIDE LEVEL 102 MEQ/L (98-107); CK-MB VALUE MASS < 1.0 NG/ML (<3.6); CPK CREATINE PHOSPHOKINASE 70 U/L (26-192); CREATININE FOR GFR 0.92 MG/DL (0.55-1.30); GLOMERULAR FILTRATION RATE > 60.0 (>39); GLUCOSE, FASTING 136 MG/DL (70-100); LIPASE 18 U/L (73-393); MB/CK RELATIVE INDEX 1.43 (< OR =4); NT-PRO BNP 341 PG/ML (<125); POTASSIUM SERUM 4.4 MEQ/L (3.5-5.1); SODIUM LEVEL 138 MEQ/L (136-145); THYROID STIMULATING HORMONE 0.863 uIU/ML (0.358-3.740); TOTAL PROTEIN 6.8 GM/DL (6.4-8.2); TROPONIN I < 0.02 NG/ML (< 0.10)
[2019-12-30] MEDS ORDERED: LIDOCAINE VISCOUS 2% SOLN 15ML UDC MT ONE (16:15)
[2019-12-30] MEDS ORDERED: LIDO2SOL17 PO (18:38)
[2019-12-30 19:17] VITALS: BP 110/59
--- NOTE | 2020-01-06 12:24 | ECGEPIP ---
[facility] - ED Test Date: 2019-12-30 Pat Name: DAVID GUERRERO Department: Room: - Gender: Female Installation Technician: mart : 1945 Requested By: DAVID BRODERICK Order Number: [id number] Reading MD: Sherry Pretty Measurements Intervals [place] Rate: 66 P: 22 RI: 126 QRS: -17 QRSD: 89 T: 128 QT: 429 QTc: 450 Interpretive Statements SINUS RHYTHM POSSIBLE LEFT ATRIAL ENLARGEMENT LEFT VENTRICULAR HYPERTROPHY AND ST-T CHANGE ABNORMAL ECG SEE SCANNED DOWNTIME REPORT
== END 2019-12-30 19:20 | disposition home or self-care (01) ==
LOC: M ED 14:54
DX: R13.10 Dysphagia, unspecified (principal); R94.31 Abnormal electrocardiogram [ECG] [EKG]; R91.8 Other nonspecific abnormal finding of lung field; I50.20 Unspecified systolic (congestive) heart failure; E11.9 Type 2 diabetes mellitus without complications; J44.9 Chronic obstructive pulmonary disease, unspecified; M79.7 Fibromyalgia; F33.9 Major depressive disorder, recurrent, unspecified; Z88.6 Allergy status to analgesic agent; Z88.5 Allergy status to narcotic agent; Z79.82 Long term (current) use of aspirin; Z79.899 Other long term (current) drug therapy

== ENCOUNTER → 2020-01-05 | Outpatient (CLI) | payer MEDICARE ==
[~2020-01-05] MED LIST changes: +LIDO2SOL17 PO
--- NOTE | 2020-01-25 13:56 | REP ---
ABDOMINAL RADIOGRAPHS CLINICAL: Esophageal obstruction. TECHNIQUE: Two supine views of the abdomen and pelvis. FINDINGS: The bowel gas pattern is nonspecific. Evidence for prior ventral hernia repair. No organomegaly. Skeletal structures demonstrates age-related degenerative changes. IMPRESSION: Nonspecific bowel gas pattern. MTDD
--- NOTE | 2020-01-25 13:56 | REP ---
CHEST X-RAY CLINICAL: Esophageal obstruction. TECHNIQUE: PA and lateral. COMPARISON: 12/16/2019. FINDINGS: Esophageal stent is again identified and stable in appearance. The cardiac silhouette is normal. Hilar adenopathy cannot be excluded. The lung mckeon are clear and without consolidation, effusion, or pneumothorax. Skeletal structures are intact. IMPRESSION: Status post stable esophageal stenting. Cannot exclude hilar adenopathy. MTDD
== END ==
LOC: M RAD 11:25
PROVIDERS: ATTEND Internal Medicine Gastroenterology
DX: K22.2 Esophageal obstruction (principal)

== ENCOUNTER → 2020-02-14 | Outpatient (CLI) | payer MEDICARE ==
--- NOTE | 2020-02-14 11:58 | REP ---
INDICATION: EPIGASTRIC PAIN. COMPARISON: AUGUST 24, 2015 TECHNIQUE/RADIOTRACER AND DOSE: FOLLOWING THE INTRAVENOUS ADMINISTRATION OF 6.6 MCI TECHNETIUM 99 M-MEBROFENIN, MULTIPLE IMAGES OF THE RIGHT UPPER QUADRANT ARE PERFORMED FOR 60 MINUTES. NEXT 8 OZ OF ENSURE ENLIVE IS INGESTED AND FURTHER IMAGING IS PERFORMED FOR 65 MINUTES. FINDINGS: THE GALLBLADDER IS VISUALIZED AT 15 MINUTES POST INJECTION. THERE IS BILIARY TO BOWEL TRANSIT AT 25 MINUTES POST INJECTION. THERE IS NO SCINTIGRAPHIC EVIDENCE OF CHOLECYSTITIS. GALLBLADDER EJECTION FRACTION IS CALCULATED TO BE 98% WHICH IS NORMAL. IMPRESSION: NORMAL GALLBLADDER EJECTION FRACTION. <Electronically signed by Kenton Garcia > 02/14/20 [id number]
== END ==
LOC: M RAD 08:41
DX: R10.13 Epigastric pain (principal)
CPT/HCPCS: 78227; A9537

== ENCOUNTER → 2020-03-29 | Outpatient (CLI) | payer MEDICARE ==
[~2020-03-29] MED LIST changes: +CREO3600; -MONT10TA4 PO; +MONT5TAB2 PO
== END ==
LOC: M LABSMTC 14:12
PROVIDERS: ATTEND Anesthesiology
DX: Z01.812 Encounter for preprocedural laboratory examination (principal); Z20.828 Contact with and (suspected) exposure to other viral communicable diseases

== ENCOUNTER 2020-04-03 07:24 | Day surgery (SDC) | payer MEDICARE ==
[~2020-04-03] VITALS: Ht 160 cm; Wt 68.0 kg
[~2020-04-03 07:24] MED LIST changes: +LR 1,000 ML IV ONE
[2020-04-03] MEDS ORDERED: dexameTHASONE 4 MG/ML 1ML VIAL (J1100 PER 1MG) As Ordered ONE (07:57)
[2020-04-03] MEDS ORDERED: fentaNYL 100 MCG/2 ML INJECTION (J3010) As Ordered ONE (07:57)
[2020-04-03] MEDS ORDERED: ROCURONIUM BROMIDE 50 MG/5 ML VIAL As Ordered ONE (07:57)
[2020-04-03] MEDS ORDERED: MIDAZOLAM INJ 2MG/2ML VIAL (J2250 PER 1MG) As Ordered ONE (07:57)
[2020-04-03] MEDS ORDERED: LIDOCAINE 2% 100MG/5ML SDV (FOR ANES.) As Ordered ONE (07:57)
[2020-04-03] MEDS ORDERED: propofoL 200 MG/20 ML VIAL As Ordered ONE (07:57)
[2020-04-03] MEDS ORDERED: ONDANSETRON 4MG/2ML VIAL As Ordered ONE (07:57)
[2020-04-03] MEDS ORDERED: SUGAMMADEX SODIUM 500 MG/5 ML VIAL (BRIDION) As Ordered ONE (09:19)
--- NOTE | 2020-04-03 10:11 | REP ---
INDICATION: EGD, STENT REMOVAL FLUOROSCOPY. COMPARISON: December 15, 2019.. TECHNIQUE: Fifteen views. 15.1 seconds of fluoroscopy time is reported. FINDINGS: A sequence of 15 last image hold fluoroscopically obtained spot radiographs document endoscopic manipulation in the mediastinum and stent removal. IMPRESSION: Procedural imaging. <Electronically signed by Carlos Acosta > 04/03/20 [id number]
--- NOTE | 2020-04-03 10:11 | ROOR ---
Patient Name: Kimberly Ramsey Procedure Date: 04/03/2020 9:05 AM Date of : 1945 Age: 75 Room: Main OR Gender: Female Note Status: Finalized Procedure: Upper GI endoscopy Indications: Dysphagia Providers: Doyle Schwarz MD Referring MD: TWIN VENCES MD Requesting Provider: Medicines: General Anesthesia Complications: No immediate complications. Procedure: Pre-Anesthesia Assessment: - Prior to the procedure, a History and Physical was performed, and patient medications and allergies were reviewed. The patient is competent. The risks and benefits of the procedure and the sedation options and risks were discussed with the patient. All questions were answered and informed consent was obtained. Patient identification and proposed procedure were verified by the physician, the nurse and the anesthesiologist in the procedure room. Mental Status Examination: alert and oriented. Airway Examination: normal oropharyngeal airway and neck mobility. Respiratory Examination: clear to auscultation. CV Examination: normal. Prophylactic Antibiotics: The patient does not require prophylactic antibiotics. Prior Anticoagulants: The patient has taken no previous anticoagulant or antiplatelet agents. ASA Grade Assessment: II - A patient with mild systemic disease. After reviewing the risks and benefits, the patient was deemed in satisfactory condition to undergo the procedure. The anesthesia plan was to use monitored anesthesia care (MAC). Immediately prior to administration of medications, the patient was re-assessed for adequacy to receive sedatives. The heart rate, respiratory rate, oxygen saturations, blood pressure, adequacy of pulmonary ventilation, and response to care were monitored throughout the procedure. The physical status of the patient was re-assessed after the procedure. The Endoscope was introduced through the mouth, and advanced to the second part of duodenum. The upper GI endoscopy was accomplished without difficulty. The patient tolerated the procedure well. Findings: An esophageal stent was found in the upper third of the esophagus and in the middle third of the esophagus. One benign-appearing, intrinsic severe (stenosis; an endoscope cannot pass) stenosis was found 30 to 32 cm from the incisors. This stenosis measured 9 mm (inner diameter) x 2 cm (in length). The stenosis was traversed after downsizing scope. Mucosal changes including small-caliber esophagus were found in the lower third of the esophagus. There is no endoscopic evidence of mass in the entire esophagus. Covered esophageal stent was removed using a rat tooth grasper. Estimated blood loss was minimal. Localized mild inflammation characterized by shallow ulcerations was found in the middle third of the esophagus. Topical 2% lidocaine is sprayed on the ulcerated area. No gross lesions were noted in the entire examined stomach. The duodenal bulb and second portion of the duodenum were normal. Impression: - Pre-existing esophageal stent. - Benign-appearing esophageal stenosis. - Esophageal mucosal changes secondary to eosinophilic esophagitis. - Esophageal mucosal changes were present, including shallow ulcerations. Findings are suggestive of inflammation. - No gross lesions in the stomach. - Normal duodenal bulb and second portion of the duodenum. - No specimens collected. Recommendation: - Patient has a contact number available for emergencies. The signs and symptoms of potential delayed complications were discussed with the patient. Return to normal activities tomorrow. Written discharge instructions were provided to the patient. - Clear liquid diet for 1 day, then advance as tolerated to mechanical soft diet, pureed diet and soft diet. - Continue present medications. - Use Protonix (pantoprazole) 40 mg PO twice daily - to be taken in morning (1/2 hour before breakfast) and at bedtime ( atleast 3 hours after last meal) for 8 weeks. - Use Maalox PO as directed for 4 weeks. - Return to GI clinic in [facility] (address [address], [address], [place], [facility] [place]) in 4 -- 6 weeks. Please call GI clinic @ [phone] for apppointment date and time. - Return to primary care physician. Procedure Code(s): --- Professional --- 75079, Esophagogastroduodenoscopy, flexible, transoral; diagnostic, including collection of specimen(s) by brushing or washing, when performed (separate procedure) Diagnosis Code(s): --- Professional --- Z97.8, Presence of other specified devices K22.2, Esophageal obstruction K20.0, Eosinophilic esophagitis K22.10, Ulcer of esophagus without bleeding R13.10, Dysphagia, unspecified CPT copyright 2019 [employer]. All rights reserved. The codes documented in this report are preliminary and upon rope laying machine operator review may be revised to meet current compliance requirements. Doyle Schwarz MD Doyle Schwarz MD 04/03/2020 10:11:34 AM Electronically signed by Doyle Schwarz MD Number of Addenda: 0 Note Initiated On: 04/03/2020 9:05 AM Estimated Blood Loss: Estimated blood loss was minimal.
[2020-04-03] MEDS ORDERED: LR 1,000 ML IV SCH (10:30)
[2020-04-03] MEDS ORDERED: ONDANSETRON 4MG/2ML VIAL IV PRN (10:30)
[2020-04-03] MEDS ORDERED: fentaNYL 100 MCG/2 ML INJECTION (J3010) IV PRN (10:30)
[2020-04-03] MEDS ORDERED: METOCLOPRAMIDE INJ 10MG/2ML VIAL (J2765 PER 1) IV PRN (10:30)
[2020-04-03] MEDS ORDERED: PERCOCET 5MG/325MG TAB PO PRN (10:30)
[2020-04-03 12:55] VITALS: BP 131/85
== END 2020-04-03 12:55 | disposition home or self-care (01) ==
LOC: M SDC 07:24
PROVIDERS: ATTEND Internal Medicine Gastroenterology
DX: K22.2 Esophageal obstruction (principal); Z97.8 Presence of other specified devices; K20.0 Eosinophilic esophagitis; K22.10 Ulcer of esophagus without bleeding; R13.10 Dysphagia, unspecified; K76.0 Fatty (change of) liver, not elsewhere classified; Z88.5 Allergy status to narcotic agent; Z88.8 Allergy status to other drugs, medicaments and biological substances; E78.49 Other hyperlipidemia; E78.00 Pure hypercholesterolemia, unspecified; I10 Essential (primary) hypertension; J44.9 Chronic obstructive pulmonary disease, unspecified; K21.9 Gastro-esophageal reflux disease without esophagitis; E11.9 Type 2 diabetes mellitus without complications; Z79.82 Long term (current) use of aspirin; Z79.899 Other long term (current) drug therapy
CPT/HCPCS: 43235; 76000; J1100; J2250; J2405; J3010